=== PATIENT | female | born 2000 | race Caucasian/White ===

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

== ENCOUNTER 2021-02-23 12:00 | Emergency (ER) | payer OTHER, SELFPAY ==
--- NOTE | ~2021-02-23 | XR_ITS ---
EXAMINATION: XR hand RT min 3V INDICATION: Right hand pain and deformity TECHNIQUE: Three views of the right hand are obtained. COMPARISON: 12/04/2016 FINDINGS: There is no fracture, dislocation, or subluxation. The bones, soft tissues, and joint space s are normal. IMPRESSION: 1. No acute osseous abnormality. Reviewed, dictated and finalized at location A.
[2021-02-23 12:03] VITALS: BP 131/80; PULSE 73; RESP 16; TEMP 36.6; O2SAT 100
--- NOTE | 2021-02-23 12:40 | ED_ITS ---
HPI - Extremity Injury (Upper) General Chief Complaint: Extremity Injury, Upper Stated Complaint: right 5th finger injury Time Seen by Provider: 02/23/21 12:16 Source: patient Mode of arrival: ambulatory Limitations: no limitations History of Present Illness HPI narrative: 20-year-old female Here for right hand injury She got mad and in a paroxysm of misplaced aggravation punched a wall Pain in the fourth and fifth of her right hand There is no deformity, there is some bruising, the wall was undamaged Related Data Home Medications Medication Instructions Recorded Confirmed No Home Medications 02/23/21 02/23/21 Allergies Allergy/AdvReac Type Severity Reaction Status Date / Time No Known Allergies Allergy Verified 02/23/21 12:22 Review of Systems Musculoskeletal: Musculoskeletal: Reports no additional musculoskeletal complaints Integumentary/Breasts: Skin/Breast: Denies erythema and Denies rash Neurologic: Denies numbness and Denies weakness [facility] Social History Social History Smoking status: Former smoker Gender identity (if verbalized by the patient): Female Exam Const: General: healthy appearing and alert Nutritional Appearance: thin Orientation/consciousness: patient oriented x3 HENMT: Head: normal to inspection, no contusions and no hematomas Eyes: Conjunctivae: conjunctivae normal EOM: EOMs intact bilaterally Resp: Effort & Inspection: normal respiratory effort and not labored Neuro: General: patient oriented x3 and moves all extremities Extrem: Other: There is bruising near the right fourth MCP joint, range of motion is painful but full, there is no deformity there or in the fourth or fifth fingers, normal cap refill Course Vital Signs Vital signs: Vital Signs Temperature 36.6 C 02/23/21 12:03 Pulse Rate 73 02/23/21 12:03 Respiratory Rate 16 02/23/21 12:03 Blood Pressure 131/80 02/23/21 12:03 Pulse Oximetry 100 02/23/21 12:03 Temperature 36.3 C L 02/23/21 13:10 Pulse Rate 69 02/23/21 13:10 Respiratory Rate 18 02/23/21 13:10 Blood Pressure 122/73 02/23/21 13:10 Pulse Oximetry 100 02/23/21 13:10 MDM - Extremity Injury (Upper) Imaging Data Radiologist's impression: ITS Impressions Hand X-Ray 02/23/21 12:20 IMPRESSION: 1. No acute osseous abnormality. Discharge Plan Discharge Clinical Impression: Contusion of hand including fingers Patient Disposition: Home, Self-Care Condition: Stable Instructions: Contusion in Adults (ED) Additional Instructions: Tristan tape the pinky finger and ring finger for comfort and protection Recheck in 10-14 days if the hand is still bothering you Prescriptions: No Action No Home Medications RF: 0 Follow-up/Referrals: Tigre Liang MD [Physician] - (orthopedics as needed) Stand Alone Forms: Work/School Release IP
[2021-02-23 13:10] VITALS: BP 122/73; PULSE 69; RESP 18; TEMP 36.3; O2SAT 100
== END 2021-02-23 13:23 | disposition home or self-care (01) ==
PROVIDERS: Emergency Provider Emergency Medicine
DX: S60.051A Contusion of right little finger without damage to nail, initial encounter (principal); S60.041A Contusion of right ring finger without damage to nail, initial encounter; Z87.891 Personal history of nicotine dependence; W22.09XA Striking against other stationary object, initial encounter
CPT/HCPCS: 73130; 99283

== ENCOUNTER 2021-04-14 21:47 | Emergency (ER) | payer OTHER, SELFPAY ==
[2021-04-14 22:12] VITALS: BP 131/79; PULSE 100; RESP 18; TEMP 36.4; O2SAT 100
--- NOTE | 2021-04-15 | PC.NURSE ---
not present in when called for ED bed assignment.
--- NOTE | 2021-04-15 00:28 | PC.NURSE ---
no answer/not in wr when called for bed assignment.
== END 2021-04-15 00:31 | disposition left against medical advice (07) ==
DX: N93.9 Abnormal uterine and vaginal bleeding, unspecified (principal)
CPT/HCPCS: 99199

== ENCOUNTER 2021-06-02 15:13 | Emergency (ER) | payer OTHER, SELFPAY ==
[2021-06-02 15:22] VITALS: BP 149/73; PULSE 84; RESP 16; TEMP 36.6; O2SAT 100
--- NOTE | 2021-06-02 19:00 | PC.NURSE ---
Patient's name called in waiting room, no answer.
== END 2021-06-02 19:00 | disposition left against medical advice (07) ==
LOC: ANHED 19:27
DX: Z53.21 Procedure and treatment not carried out due to patient leaving prior to being seen by health care provider (principal)
CPT/HCPCS: 99199

== ENCOUNTER 2021-06-26 14:56 | Emergency (ER) | payer OTHER, SELFPAY ==
--- NOTE | 2021-06-26 15:42 | PC.NURSE ---
no answer from waiting room - when called to triage.
== END 2021-06-26 15:42 | disposition left against medical advice (07) ==
DX: Z53.21 Procedure and treatment not carried out due to patient leaving prior to being seen by health care provider (principal)
CPT/HCPCS: 99199

== ENCOUNTER 2021-06-26 15:40 | Emergency (ER) | payer OTHER, SELFPAY ==
--- NOTE | ~2021-06-26 | XR_ITS ---
EXAMINATION: XR lumbar spine 2-3V DATE: 06/26/2021 16:22 INDICATION: Low back pain after fall TECHNIQUE: Anteroposterior and lateral views of the lumbar spine, and cone-down lateral view of the l umbosacral junction were obtained. COMPARISON: None. FINDINGS: There is no fracture, dislocation, or subluxation. The vertebral body heights, alignment, a nd intervertebral disc spaces are normal. The paravertebral soft tissues are unremarkable. IMPRESSION: 1. No acute osseous abnormality. Reviewed, dictated and finalized at location A.
[2021-06-26 15:52] VITALS: BP 126/71; PULSE 94; RESP 16; TEMP 37.1; O2SAT 99
--- NOTE | 2021-06-26 16:30 | ED.GENADULT ---
HPI - General Adult General Chief complaint: Back Pain/Injury Stated complaint: lower back/right arm pain Source: patient Mode of arrival: ambulatory Limitations: no limitations History of Present Illness HPI narrative: Patient is a 20-year-old female who presents to the [facility] via POV for evaluation of a injury to back that occurred at approximately 12:30 PM today. She reports she excellently slipped and slid down wooden stairs while carrying her infant. She states she is having pain in mid back and coccyx area. She also reports abrasions noted to back and left arm. Nothing improves symptoms. Denies taking OTC meds for symptoms. Laying supine and movement increases pain. Related Data Allergies Allergy/AdvReac Type Severity Reaction Status Date / Time No Known Allergies Allergy Verified 06/26/21 15:42 Review of Systems Review of Systems: Pertinent negatives: Head trauma, neck trauma, fever, chills, sweats, change in appetite, poor p.o. intake, headache, dizziness, lymphadenopathy, vision changes, swelling, erythema, weakness, syncope, vertigo, LOC, seizure activity, memory loss, difficulty with coordination/gait/equilibrium, paresthesias, incontinence, abdominal pain, nausea, vomiting, diarrhea, constipation, shortness of breath, cough, chest pain, and heart palpitations/murmurs. PMFSH Social History Social History Smoking status: Former smoker Gender identity (if verbalized by the patient): Female Comments I have reviewed and agree with the patient's past medical, surgical, social, and family hx as documented by the RN. There is no relevant family history pertinent to the presenting complaint. Exam Narrative: GENERAL: Well-appearing, well-nourished, and in no acute distress. HEAD: Normocephalic, atraumatic. NECK: Supple. No lymphadenopathy or nuchal rigidity. No evidence of pain, decreased ROM, or deformity. CHEST: Lung sounds are clear to auscultation in bilateral lung bah. No respiratory distress. HEART: Regular rate and rhythm. No murmur heard. Normal peripheral pulses. ABDOMEN: Soft, nontender, nondistended, normal active bowel sounds in all quadrants. No guarding. No rebound tenderness. No pulsatile or palpable abdominal mass(es). No CVAT EXTREMITIES: Normal range of motion. No edema. Small abrasion noted to dorsal aspect of left arm. BACK: Full ROM. No evidence of deformity, spasm, mass, spinal tenderness, or swelling. Bilateral SLR tests negative. Ambulates hunched over with a slowed gait. Multiple small abrasions noted to lumbar area. Moderate pain is elicited to lumbar and coccyx area with palpation. Moderate pain is also to cut that elicited to lumbar and coccyx area with all ROM. SKIN: Warm, dry, no rash. No skin color changes. Excellent turgor. NEURO: No focal deficits. Alert and oriented x3. Course Vital Signs Vital signs: Vital Signs Temperature 98.8 F 06/26/21 15:52 Pulse Rate 94 06/26/21 15:52 Respiratory Rate 16 06/26/21 15:52 Blood Pressure 126/71 06/26/21 15:52 Pulse Oximetry 99 06/26/21 15:52 Temperature 98.8 F 06/26/21 15:52 Pulse Rate 94 06/26/21 15:52 Respiratory Rate 16 06/26/21 15:52 Blood Pressure 126/71 06/26/21 15:52 Pulse Oximetry 99 06/26/21 15:52 Reviewed Medical Decision Making Differential Diagnosis Differential Diagnosis: Spinal stenosis, radiculopathy/sciatica,cauda equina syndrome, sacroiliac pathology, fracture, strain, spasm, UTI, pyelonephritis, nephrolithiasis Medical Records Medical records reviewed: Yes I reviewed the external patient's medical records. Vital Signs Vital Signs: Vital Signs Temperature 98.8 F 06/26/21 15:52 Pulse Rate 94 06/26/21 15:52 Respiratory Rate 16 06/26/21 15:52 Blood Pressure 126/71 06/26/21 15:52 Pulse Oximetry 99 06/26/21 15:52 Temperature 98.8 F 06/26/21 15:52 Pulse Rate 94 06/26/21 15:52 Respira
== END 2021-06-26 16:44 | disposition home or self-care (01) ==
PROVIDERS: Emergency Provider Nurse Practitioner Family
DX: S30.810A Abrasion of lower back and pelvis, initial encounter (principal); W10.9XXA Fall (on) (from) unspecified stairs and steps, initial encounter; M54.50 Low back pain, unspecified; Z87.891 Personal history of nicotine dependence
CPT/HCPCS: 72100; 99213; G0463

== ENCOUNTER 2021-09-13 10:57 | Emergency (ER) | payer OTHER, SELFPAY ==
--- NOTE | ~2021-09-13 | US_ITS ---
EXAMINATION: US OB <=14 wk fetus w TV DATE: 09/13/2021 13:33 INDICATION: Pelvic pain during first trimester . TECHNIQUE: Real-time pelvic ultrasound utilizing both a transvaginal and transabdominal probe was pe rformed. The interpreting radiologist was not present for the study. COMPARISON: None. FINDINGS: The uterus measures 10.1 x 5.8 x 5.1 cm. 3-4 mm anechoic likely gestational sac within the endometri al complex which is mildly thickened measuring 17 mm. No evident internal yolk sac or pole like ly due to the small size of the gestational sac an early stage of . The mean sac diameter co rrelates with an estimated gestational age of 4 weeks and 6 days. The right ovary measures 2.8 x 2.5 x 2.6 cm. The left ovary measures 3.6 x 3.0 x 2.2 cm. Vascular alison w identified in both ovaries with color Doppler. There is a tiny amount of free fluid in the cul-de-s ac. IMPRESSION: 1. Single uterine likely gestational sac without evident yolk sac or pole likely due to early s tage of . 2. Gestational age by ultrasound based upon mean sac diameter of 4 weeks 6 with ultrasound estimated date of delivery ([facility]RIANNA) of 05/17/2022. Reviewed, dictated and finalized at location B. GER MANAGING IMPRESSION: 1. Single uterine likely gestational sac without evident yolk sac or pole likely due to early stage of . 2. Gestational age by ultrasound based upon mean sac diameter of 4 weeks 6 wit h ultrasound estimated date of delivery (BRIANNA) of 05/17/2022.
[2021-09-13 11:02] VITALS: BP 139/75; PULSE 114; RESP 18; TEMP 36.5; O2SAT 100
[2021-09-13 11:32] LABS: Basophils Percent Auto 0.5 % (0.2-1.2); Eosinophils Percent Auto 0.7 % (0-4.4); Hematocrit 39.7 % (37.0-47.0); Hemoglobin 13.5 g/dL (12.0-15.0); Immature Granulocyte Absolute 0.05 K/mm3 (0.00-0.031); Immature Granulocyte Percent A 0.8 % (0-0.5); Lymphocytes Absolute Auto 0.32 K/mm3 (0.9-3.2); Lymphocytes Percent Auto 5.3 % (18.3-44.2); Mean Corpuscular Hemoglobin 30.3 pg (26-34); Mean Corpuscular Volume 89.2 fl (80-100); Mean Platelet Volume 9.7 fl (7.4-10.4); Monocytes Absolute Auto 0.6 K/mm3 (0.1-0.6); Monocytes Percent Auto 10.2 % (2.6-8.5); Neutrophils Percent Auto 82.5 % (45.5-73.1); Platelet Count Result 146 k/mm3 (150-375); Red Blood Count 4.45 M/mm3 (4.2-5.4); Red Cell Distribution Width 13.2 % (11.5-14.5); White Blood Count 6.1 K/mm3 (4.5-10.0)
[2021-09-13 11:41] LABS: Add Urine Microscopic? YES; Appearance Urine Clear (Clear); Bacteria Urine Trace /hpf; Bilirubin Urine Negative (Negative); Blood Urine Negative (Negative); Color Urine Yellow (Yellow); Glucose Urine UA Negative (Negative); Ketones Urine Trace mg/dL (Negative); Leukocyte Esterase Ur 2+ LEU/UL (Negative); Mucus Urine Rare /lpf; Nitrate Urine Negative (Negative); Protein Urine Negative (Negative); RBC Urine 0-2 /hpf (0-2); Specific Grav Ur 1.019 (1.001-1.035); Squamous Epithelial Cell Urine Few /hpf (Few); Urobilinogen Urine Negative mg/dL (<2.0); WBC Urine 0-3 /hpf
--- NOTE | 2021-09-13 11:52 | PC.NURSE ---
This nurse called laboratory for an add-on for a cmp and lipase.
[2021-09-13] MEDS: SODIUM CHLORIDE 0.9% IV 1,000 ML 999 ML IV CONT (12:14)
--- NOTE | 2021-09-13 12:19 | ED.PREGNANCY ---
HPI - General Chief complaint: Abdominal Pain Stated complaint: 6wks preg, back/abd pain Time Seen by Provider: 09/13/21 11:37 Source: patient Mode of arrival: ambulatory Limitations: no limitations History of Present Illness HPI Narrative: This is a 20 year old , about 6 weeks , that presents to the ER for back pain and pelvic cramping. Ongoing today. No known injury or trauma. The pain is in the left flank and radiating into the abdomen. She has not seen her OB yet or had an US. Denies fever, vomiting, dysuria, vaginal bleeding or hematuria. Related Data Home Medications Medication Instructions Recorded Confirmed No Home Medications 09/13/21 09/13/21 Allergies Allergy/AdvReac Type Severity Reaction Status Date / Time No Known Allergies Allergy Verified 09/13/21 11:06 Review of Systems Review of Systems: CONSTITUTIONAL: Denies fever GASTROINTESTINAL: Reports abdominal pain. Denies nausea, vomiting, or diarrhea. GENITOURINARY: Denies dysuria or hematuria. MUSCULOSKELETAL: Reports back pain, joint pain, and myalgia. All systems reviewed & are unremarkable except as noted in HPI and below PMFSH Past Medical History Medical History (Updated 09/13/21 @ 15:05 by Suyapa Griffin PA-C) No active medical problems Social History Social History Smoking status: Former smoker Gender identity (if verbalized by the patient): Female Exam Narrative: GENERAL: Well-appearing, well-nourished, and in no acute distress. HEAD: Normocephalic, atraumatic. EYES: EOMI. CHEST: Clear to auscultation. No respiratory distress. No wheezes rales or rhonchi HEART: Regular rate and rhythm. No murmur heard. Normal peripheral pulses. ABDOMEN: Soft, nontender, nondistended, normal active bowel sounds. BACK: Tender to palpation of the left lumbar paraspinal musculature EXTREMITIES: Normal range of motion. No edema. SKIN: Warm, dry, no rash. NEURO: No focal deficits. Alert and oriented x3. PSYCH: Normal mood and affect Course Consultations Consultation #1: Spoke with Dr. Kenyon about patient and work-up. Would like her to follow-up for repeat ultrasound in 2 weeks. Date: 09/13/21 Time: 15:03 Vital Signs Vital signs: Vital Signs Temperature 97.7 F 09/13/21 11:02 Pulse Rate 114 H 09/13/21 11:02 Respiratory Rate 18 09/13/21 11:02 Blood Pressure 139/75 09/13/21 11:02 Pulse Oximetry 100 09/13/21 11:02 Temperature 97.7 F 09/13/21 11:02 Pulse Rate 97 09/13/21 13:39 Respiratory Rate 18 09/13/21 13:39 Blood Pressure 119/64 09/13/21 13:39 Pulse Oximetry 100 09/13/21 13:39 MDM - OB/Uterine Contractions MDM Narrative Medical decision making narrative: Patient presents to the emergency department for left flank pain and pelvic cramping. Reports she is currently about 6 weeks by LMP. Patient mildly tachycardic upon arrival, this normalized with IV fluid administration. Vitals are stable. CBC and metabolic panel without concerning findings. Lipase is normal. She denies any vaginal bleeding. UA is without evidence of infection. Obstetrics ultrasound shows a single intrauterine gestational sac without an evident yolk sac or pole likely due to early stage of . Patient reports relief with IV fluids and Tylenol. Spoke with Dr. Kenyon about patient and work-up. Would like her to follow-up for repeat ultrasound in 2 weeks. Patient is stable and felt appropriate for further outpatient evaluation. She was given warnings to return to the ER Lab Data Attestation: I reviewed the patient's lab results. Result diagrams: 09/13/21 11:15 09/13/21 11:59 Labs: Lab Results 09/13/21 09/13/21 09/13/21 Range/Units 11:15 11:15 11:15 WBC 6.1 (4.5-10.0) K/mm3 RBC 4.45 (4.2-5.4) M/mm3 Hgb 13.5 (12.0-15.0) g/dL Hct 39.7 (37.0-47.0) % MCV 89.2 (80-100) fl MCH 30.3
[2021-09-13 12:25] LABS: Alanine Aminotransferase 14 U/L (4-35); Alkaline Phosphatase 55 U/L (45-116); Anion Gap 9 mmol/L (8-16); Aspartate Amino Transferase 19 U/L (14-36); Bilirubin,Total 0.3 mg/dL (0.2-1.3); Blood Urea Nitrogen 11 mg/dL (8-21); Calcium 9.8 mg/dL (8.9-10.7); Carbon Dioxide 22 mmol/L (22-30); Chloride 107 mmol/L (98-107); Estimated CRCL calculation 103 ml/min; Estimated Glomerular Filt Rate > 60; Glucose 108 mg/dL (65-110); Lipase 34 U/L (23-300); Potassium 3.7 mmol/L (3.4-5.0); Sodium 138 mmol/L (134-143)
[2021-09-13 13:39] VITALS: BP 119/64; PULSE 97; RESP 18; O2SAT 100
== END 2021-09-13 15:22 | disposition home or self-care (01) ==
PROVIDERS: Physician Assistant; Emergency Provider Emergency Medicine
DX: O26.891 Other specified pregnancy related conditions, first trimester (principal); R10.2 Pelvic and perineal pain; M54.9 Dorsalgia, unspecified; Z3A.01 Less than 8 weeks gestation of pregnancy
CPT/HCPCS: 36415; 76801; 76817; 80053; 81001; 81025; 83690; 84702; 85025; 86850; 86900; 86901; 96361; 96365; 99284; J0131; J7030

== ENCOUNTER 2021-09-19 23:26 | Emergency (ER) | payer OTHER, SELFPAY ==
--- NOTE | ~2021-09-19 | US_ITS ---
EXAMINATION: US OB <=14 wk fetus w TV DATE: 09/20/2021 01:34 INDICATION: Vaginal bleeding TECHNIQUE: Real-time pelvic ultrasound utilizing both a transvaginal and transabdominal probe was pe rformed. The interpreting radiologist was not present for the study. COMPARISON: None. FINDINGS: The uterus measures 9.1 x 6.1 x 5.7 cm. There is an intrauterine gestational sac. A 2-3 mm yolk sac but no pole is identified. The mean sac diameter measures measures 8 mm, which correlates which is below limits for accurate estimation of gestational age. 2.8 x 2.6 x 1.9 cm isoechoic region with in the endometrial complex along the right fundal side of the gestational sac which is not identified on a recent ultrasound from one week prior which would favor subchorionic hematoma over uterine fibr oid or endometrial polyp. The right ovary measures 3.7 x 2.9 x 2.1 cm. The left ovary is not visualized. There is no free fluid in the pelvis. IMPRESSION: 1. Single intrauterine gestational sac of 8 mm mean sac diameter with a yolk sac but no discernible f etal pole yet apparent likely due to early stage of . 2. 2.8 x 2.6 x 1.9 cm isoechoic region along side a gestational sac most likely a subchorionic hemat chayito. Reviewed, dictated and finalized at location A. GRAPH EDITOR IMPRESSION: 1. Single intrauterine gestational sac of 8 mm mean sac diameter with a yolk sa c but no discernible pole yet apparent likely due to early stage of pregn jn. 2. 2.8 x 2.6 x 1.9 cm isoechoic region along side a gestational sac most likel y a subchorionic hematoma.
[2021-09-19 23:50] VITALS: BP 135/85; PULSE 74; RESP 18; O2SAT 100
--- NOTE | 2021-09-19 23:52 | ED.PREGNANCY ---
HPI - General Chief complaint: Vaginal Bleeding <Jonna Cartagena MD - Last Filed: 09/20/21 02:05> Stated complaint: 7 weeks /bleeding <Jonna Cartagena MD - Last Filed: 09/20/21 02:05> Time Seen by Provider: 09/19/21 23:47 <Jonna Cartagena MD - Last Filed: 09/20/21 02:05> Source: patient, RN notes reviewed and old records reviewed <Jonna Cartagena MD - Last Filed: 09/20/21 02:05> Mode of arrival: ambulatory <Jonna Cartagena MD - Last Filed: 09/20/21 02:05> Limitations: no limitations <Jonna Cartagena MD - Last Filed: 09/20/21 02:05> History of Present Illness HPI Narrative: This is a 20 year old female 5 wk GA by US who presents for evaluation of vaginal bleeding. She states just prior to arrival she developed vaginal bleeding. She states she is having alot of bleeding but she denies passing clots or tissue. She also denies abdominal pain or cramping. She is not lightheaded or dizzy. She has appointment at [facility] on October 03. She was evaluated in ER 1 week ago and she was found to have IUP. <Jonna Cartagena MD - Last Filed: 09/20/21 02:05> Related Data Home medications: Home Medications Medication Instructions Recorded Confirmed No Home Medications 09/13/21 09/19/21 <Jonna Cartagena MD - Last Filed: 09/20/21 02:05> Allergies/Adverse reactions: Allergies Allergy/AdvReac Type Severity Reaction Status Date / Time No Known Allergies Allergy Verified 09/19/21 23:58 <Jonna Cartagena MD - Last Filed: 09/20/21 02:05> Review of Systems Review of Systems: All systems reviewed & are unremarkable except as noted in HPI and below <Jonna Cartagena MD - Last Filed: 09/20/21 02:05> PMFSH Past Medical History Medical History: Medical History (Updated 09/20/21 @ 02:05 by Jonna Cartagena MD) No active medical problems <Jonna Cartagena MD - Last Filed: 09/20/21 02:05> Social History Social History: Social History Smoking status: Former smoker Gender identity (if verbalized by the patient): Female <Jonna Cartagena MD - Last Filed: 09/20/21 02:05> Exam Const: General: alert <Jonna Cartagena MD - Last Filed: 09/20/21 02:05> Nutritional Appearance: thin <Jonna Cartagena MD - Last Filed: 09/20/21 02:05> Orientation/consciousness: patient oriented x3 <Jonna Cartagena MD - Last Filed: 09/20/21 02:05> Eyes: EOM: EOMs intact bilaterally <Jonna Cartagena MD - Last Filed: 09/20/21 02:05> Resp: Effort & Inspection: normal respiratory effort and no retractions <Jonna Cartagena MD - Last Filed: 09/20/21 02:05> Auscultation: clear to auscultation bilaterally <Jonna Cartagena MD - Last Filed: 09/20/21 02:05> Cardio: Rate: regular rate <Jonna Cartagena MD - Last Filed: 09/20/21 02:05> Rhythm: regular rhythm <Jonna Cartagena MD - Last Filed: 09/20/21 02:05> Heart sounds: no murmurs <Jonna Cartagena MD - Last Filed: 09/20/21 02:05> GI: GI Palp: Yes Soft to palpation, No Tenderness to palpation present (GI) and No Guarding due to palpation present (GI) <Jonna Cartagena MD - Last Filed: 09/20/21 02:05> Auscultation: normal bowel sounds <Jonna Cartagena MD - Last Filed: 09/20/21 02:05> : Speculum Exam - Cervix: Cervical os closed <Jonna Cartagena MD - Last Filed: 09/20/21 02:05> Other: small amount of dark blood in vault, no clots, <Jonna Cartagena MD - Last Filed: 09/20/21 02:05> Back/Spine/Pelvis: Back: no CVA tenderness <Jonna Cartagena MD - Last Filed: 09/20/21 02:05> Skin: General skin exam: normal color <Jonna Cartagena MD - Last Filed: 09/20/21 02:05> Rashes: no rashes <Jonna Cartagena MD - Last Filed: 09/20/21 02:05> Neuro: General: patient oriented x3, moves all extremities and CN's II-XI intact bilaterally <Jonna Cartagena MD - Last Filed: 09/20/21 02:0
[2021-09-20 00:15] LABS: Basophils Percent Auto 0.4 % (0.2-1.2); Eosinophils Absolute Auto 0.2 K/mm3 (0-0.3); Eosinophils Percent Auto 2.6 % (0-4.4); Hematocrit 38.3 % (37.0-47.0); Hemoglobin 13.2 g/dL (12.0-15.0); Immature Granulocyte Absolute 0.02 K/mm3 (0.00-0.031); Immature Granulocyte Percent A 0.2 % (0-0.5); Lymphocytes Absolute Auto 3.34 K/mm3 (0.9-3.2); Lymphocytes Percent Auto 40.6 % (18.3-44.2); Mean Corpuscular HGB Conc 34.5 g/dl (32-36); Mean Corpuscular Hemoglobin 29.6 pg (26-34); Mean Corpuscular Volume 85.9 fl (80-100); Mean Platelet Volume 9.7 fl (7.4-10.4); Monocytes Absolute Auto 0.6 K/mm3 (0.1-0.6); Monocytes Percent Auto 7.4 % (2.6-8.5); Neutrophils Percent Auto 48.8 % (45.5-73.1); Platelet Count Result 195 k/mm3 (150-375); Red Blood Count 4.46 M/mm3 (4.2-5.4); Red Cell Distribution Width 13.1 % (11.5-14.5); White Blood Count 8.2 K/mm3 (4.5-10.0)
--- NOTE | 2021-09-20 01:11 | PC.NURSE ---
Pt to US at this time.
[2021-09-20 02:27] VITALS: BP 118/74; BP 122/84; PULSE 56; PULSE 74
[2021-09-20 02:31] VITALS: BP 131/91; PULSE 67
[2021-09-20 03:17] VITALS: BP 114/65; PULSE 66; RESP 16; O2SAT 100
== END 2021-09-20 03:20 | disposition home or self-care (01) ==
PROVIDERS: General Practice; Emergency Provider Emergency Medicine; PCP Family Medicine
DX: O20.0 Threatened abortion (principal); Z3A.01 Less than 8 weeks gestation of pregnancy; Z87.891 Personal history of nicotine dependence
CPT/HCPCS: 36415; 76801; 76817; 84702; 85025; 86850; 86900; 86901; 99284

== ENCOUNTER 2021-10-30 12:13 | Emergency (ER) | payer OTHER, SELFPAY ==
[2021-10-30 12:18] VITALS: BP 139/82; PULSE 82; RESP 18; TEMP 36.4; O2SAT 100
[2021-10-30 12:32] LABS: Basophils Absolute Auto 0.1 K/mm3 (0.0-0.1); Basophils Percent Auto 0.3 % (0.2-1.2); Eosinophils Absolute Auto 0.2 K/mm3 (0-0.3); Eosinophils Percent Auto 1.1 % (0-4.4); Hematocrit 42.3 % (37.0-47.0); Hemoglobin 14.5 g/dL (12.0-15.0); Immature Granulocyte Absolute 0.12 K/mm3 (0.00-0.031); Immature Granulocyte Percent A 0.7 % (0-0.5); Lymphocytes Percent Auto 8.1 % (18.3-44.2); Mean Corpuscular HGB Conc 34.3 g/dl (32-36); Mean Corpuscular Hemoglobin 30.5 pg (26-34); Mean Corpuscular Volume 88.9 fl (80-100); Mean Platelet Volume 9.2 fl (7.4-10.4); Monocytes Percent Auto 5.9 % (2.6-8.5); Neutrophils Absolute Auto 13.5 K/mm3 (1.3-6.7); Neutrophils Percent Auto 83.9 % (45.5-73.1); Platelet Count Result 213 k/mm3 (150-375); Red Blood Count 4.76 M/mm3 (4.2-5.4); Red Cell Distribution Width 13.7 % (11.5-14.5); White Blood Count 16.1 K/mm3 (4.5-10.0)
--- NOTE | 2021-10-30 12:32 | ED.FEMALEGU ---
HPI - Female Genitourinary General Chief complaint: Nausea/Vomiting/Diarrhea Stated complaint: N/V 10 weeks Time Seen by Provider: 10/30/21 12:16 Source: patient Mode of arrival: ambulatory Limitations: no limitations History of Present Illness HPI Narrative: Patient is a G2, P1 at 10 weeks age of gestation complaining of nausea and vomiting that started today but states that it is been on and off throughout her . Patient states that today the frequency of her nausea vomiting is increased, states that she is vomited proximately 6 times, nonbilious nonbloody. Patient denies any abdominal pain, vaginal bleeding or vaginal discharge. Patient states that she has had care and a first trimester ultrasound. Related Data Allergies Allergy/AdvReac Type Severity Reaction Status Date / Time No Known Allergies Allergy Verified 09/19/21 23:58 Review of Systems Review of Systems: All systems reviewed & are unremarkable except as noted in HPI and below Constitutional: Constitutional: Denies body ache(s), Denies chills, Denies excessive sweating, Denies fatigue, Denies fever(s), Denies headache(s), Denies lethargy, Denies malaise, Denies weakness and Denies weight loss Eyes: Eyes: Denies blurry vision, Denies change in vision and Denies loss of vision ENT: Denies dizziness, Denies ear discharge, Denies headache(s), Denies lip swelling, Denies epistaxis, Denies nasal congestion, Denies neck pain, Denies throat swelling and Denies tongue swelling Cardiovascular: Cardiovascular: Denies chest pain, Denies chest pain at rest, Denies chest pain with activity, Denies diaphoresis, Denies rapid heart rate, Denies edema, Denies irregular heart rhythm, Denies lightheadedness, Denies palpitations, Denies dyspnea and Denies dyspnea on exertion Respiratory: Respiratory: Denies chest congestion, Denies cough, Denies hemoptysis, Denies dyspnea and Denies dyspnea on exertion Gastrointestinal: Gastrointestinal: Denies abdominal pain, Denies melena, Denies hematochezia, Denies diarrhea and Denies hematemesis Musculoskeletal: Musculoskeletal: Denies abnormal gait, Denies deformity, Denies joint swelling, Denies limited range of motion, Denies neck pain and Denies numbness Neurologic: Denies Abnormal speech present, Denies abnormal gait, Denies confusion, Denies dizziness, Denies headache(s), Denies focal weakness, Denies loss of vision, Denies numbness, Denies Other visual disturbances, Denies Sensory deficit (Neuro) and Denies weakness Psychiatric: Psychiatric: Denies confusion, Denies depression, Denies auditory hallucinations, Denies homicidal ideation and Denies suicidal ideation Endocrine: Endocrine: Denies cold intolerance, Denies excessive sweating, Denies fatigue, Denies heat intolerance and Denies palpitations Hematologic/Lymphatic: Hematologic/Lymphatic: Denies easy bleeding and Denies easy bruising Allergic/Immunologic: Allergic/Immunologic: Denies lip swelling, Denies throat swelling and Denies tongue swelling PMFSH Past Medical History Medical History No active medical problems Social History Social History Smoking status: Former smoker Gender identity (if verbalized by the patient): Female Exam Const: General: cooperative, healthy appearing, comfortable, no acute distress, well developed, alert and awake; No confusion Orientation/consciousness: oriented to person, oriented to place, oriented to time, patient oriented x3 and No confusion Limitations: no limitations HENMT: Head: normal to inspection, normocephalic and atraumatic Ears: hearing grossly normal bilaterally, TM normal on the right and TM normal on the left General nose exam: Normal external nose present, Normal nares present and No nasal discharge present Face and sinus: normal facial exam Mouth: Yes Normal oral and palatal mucosa present, Yes lip norm
[2021-10-30] MEDS: SODIUM CHLORIDE 0.9% IV 1,000 ML 999 ML IV CONT (12:36)
[2021-10-30] MEDS: PROMETHAZINE HCL 25 MG/ML AMPUL 12.5 MG IV PUSH (12:37)
[2021-10-30 12:58] LABS: Alanine Aminotransferase 11 U/L (4-35); Albumin Level 5.2 g/dL (3.5-5.1); Alkaline Phosphatase 57 U/L (38-126); Anion Gap 12 mmol/L (8-16); Aspartate Amino Transferase 19 U/L (14-36); Bilirubin,Total 0.7 mg/dL (0.2-1.3); Blood Urea Nitrogen 9 mg/dL (7-17); Calcium 9.7 mg/dL (8.4-10.2); Carbon Dioxide 22 mmol/L (22-30); Chloride 103 mmol/L (98-107); Estimated CRCL calculation 156 ml/min; Estimated Glomerular Filt Rate > 60; Glucose 92 mg/dL (65-110); Lipase 33 U/L (23-300); Potassium 4.3 mmol/L (3.4-5.0); Sodium 137 mmol/L (137-145)
[2021-10-30 13:15] VITALS: BP 112/63; BP 122/64; BP 130/69; PULSE 68; PULSE 70; PULSE 86
[2021-10-30 13:46] LABS: Add Urine Microscopic? NO; Appearance Urine Clear (Clear); Bilirubin Urine Negative (Negative); Blood Urine Negative (Negative); Color Urine Yellow (Yellow); Glucose Urine UA Negative (Negative); Ketones Urine Negative (Negative); Leukocyte Esterase Ur Negative LEU/UL (Negative); Nitrate Urine Negative (Negative); Protein Urine Negative (Negative); Specific Grav Ur 1.023 (1.001-1.035); Urobilinogen Urine Negative mg/dL (<2.0)
== END 2021-10-30 14:24 | disposition home or self-care (01) ==
PROVIDERS: Emergency Provider Emergency Medicine
DX: O21.9 Vomiting of pregnancy, unspecified (principal); Z87.891 Personal history of nicotine dependence; Z3A.10 10 weeks gestation of pregnancy
CPT/HCPCS: 36415; 80053; 81003; 81025; 83690; 85025; 96361; 96374; 99284; J2550; J7030

== ENCOUNTER 2022-04-09 18:17 | Inpatient (IN) | payer OTHER, SELFPAY ==
[2022-04-09] VITALS (34 sets, daily range): BP systolic 111–145; BP diastolic 71–115; PULSE 82–136; TEMP 36.4; O2SAT 99–100; BMI 22.6
--- NOTE | ~2022-04-09 | US_ITS ---
EXAMINATION: US OB follow up w [facility] DATE: 04/10/2022 07:45 INDICATION: Variable decelerations. Third trimester. TECHNIQUE: Real-time pelvic ultrasound was performed. COMPARISON: Ultrasound 09/20/2021, 09/13/2021 FINDINGS: There is a single living fetus in vertex presentation. The placenta is on the left. heart rate is 141 beats per minute (bpm). The amniotic fluid index is 11.7 cm, which is normal. The following biometric data were obtained: Biparietal diameter (BPD): 8.8 cm; head circumference (HC): 32.1 cm; abdominal circumference (AC): 31 .6 cm; femur length (FL): 6.5 cm. These measurements are concordant. Estimated weight is 2595 g +/- 389 g, which correlates with the 80th percentile when 05/23/22 is used as estimated date of delivery. As single measurements, these parameters are each equal to the following estimated gestational ages: BPD: 35 weeks 5 days. HC: 36 weeks 1 days. AC: 35 weeks 4 days. FL: 33 weeks 5 days. estimated gestational age based solely on measurements from this exam is 35 weeks 2 days +/- 2 weeks 3 days. Biophysical profile performed by the technologist: breathing (30 sec sustained breathing in 30 minutes): 2 out of 2 movement (3 gross body movements in 30 minutes): 2 out of 2 tone (one episode of fjwovfy-rbnuoizwm-guohkdu limb movement): 2 out of 2 Amniotic fluid pocket (2 cm): 2 out of 2 Total score: 8 out of 8 IMPRESSION: 1. Single living fetus in vertex presentation. 2. Estimated weight is 2595 g +/- 389 g, which correlates with the 80th percentile when 2 is used as estimated date of delivery. 3. Biophysical profile 8 out of 8. Reviewed, dictated and finalized at location A. IMPRESSION: 1. Single living fetus in vertex presentation. 2. Estimated weight is 2595 g +/- 389 g, which correlates with the 80th percentile when 05/23/22 is used as estimated date of delivery. 3. Biophysical profile 8 out of 8.
[2022-04-09] MEDS: TERBUTALINE SULFATE 1 MG/ML VIAL 0.25 MG SUB-Q ×2 (18:58→19:34)
[2022-04-09 19:02] LABS: Appearance Urine Slightly Cloudy (Clear); Bilirubin Urine 1+ (Negative); Blood Urine Negative (Negative); Color Urine Yellow (Yellow); Glucose Urine UA Negative (Negative); Ketones Urine Trace mg/dL (Negative); Leukocyte Esterase Ur Negative LEU/UL (Negative); Nitrate Urine Negative (Negative); Protein Urine Trace mg/dL (Negative); Specific Grav Ur 1.015 (1.001-1.035)
[2022-04-09 19:07] LABS: Amorphous Sediment Urine Few; Bacteria Urine Trace /hpf; Mucus Urine Rare /lpf; RBC Urine 0-2 /hpf (0-2); Squamous Epithelial Cell Urine Few /hpf (Few); WBC Urine 0-3 /hpf
[2022-04-09 19:09] LABS: Add Urine Microscopic? YES
--- NOTE | 2022-04-09 19:22 | LDADM ---
This patient, Afshan Capone, was admitted to [facility] on 04/09/22 at 18:17. Plans for labor, pain management and were discussed with patient. Patient/family oriented to hospital policies and general routines including ID bracelet, bed and alarms, visiting hours, pain management, procedures, bathroom and other care routines, personal items, smoking policy, room service/diet and guest tray routines, infant security routines, and visiting hours. Patient/Family are encouraged to report perceived risks to care and to ask questions if they do not understand what they are told or what they should do. See OBIX for further documentation.
[2022-04-09] MEDS: BETAMETHASONE SOD PHOS/ACETATE 30 MG/5 ML VIAL 12 MG IM (19:32)
[2022-04-09] MEDS: NIFEdipine 30 MG TAB.ER.24 PO (21:23)
[2022-04-10] VITALS (84 sets, daily range): BP systolic 109–150; BP diastolic 54–91; PULSE 58–115; RESP 12–18; TEMP 36–36.4; O2SAT 97–100
[2022-04-10] MEDS: TERBUTALINE SULFATE 1 MG/ML VIAL 0.25 MG SUB-Q (00:18)
[2022-04-10] MEDS: LACTATED RINGERS 1,000 ML 75 ML IV CONT ×2 (04:20→17:59)
[2022-04-10] MEDS: MAGNESIUM SULF 4 GM/WATER100ML 4 GM/100 ML BAG IVPB (04:20)
[2022-04-10 04:44] LABS: Basophils Percent Auto 0.2 % (0.2-1.2); Eosinophils Percent Auto 0.1 % (0-4.4); Hematocrit 32.6 % (37.0-47.0); Hemoglobin 10.7 g/dL (12.0-15.0); Immature Granulocyte Absolute 0.24 K/mm3 (0.00-0.031); Immature Granulocyte Percent A 1.3 % (0-0.5); Lymphocytes Absolute Auto 1.28 K/mm3 (0.9-3.2); Lymphocytes Percent Auto 7.1 % (18.3-44.2); Mean Corpuscular HGB Conc 32.8 g/dl (32-36); Mean Corpuscular Hemoglobin 27.6 pg (26-34); Mean Platelet Volume 10.8 fl (7.4-10.4); Monocytes Absolute Auto 0.4 K/mm3 (0.1-0.6); Neutrophils Absolute Auto 16.2 K/mm3 (1.3-6.7); Neutrophils Percent Auto 89.3 % (45.5-73.1); Platelet Count Result 225 k/mm3 (150-375); Red Blood Count 3.88 M/mm3 (4.2-5.4); Red Cell Distribution Width 13.6 % (11.5-14.5); White Blood Count 18.1 K/mm3 (4.5-10.0)
[2022-04-10 04:58] LABS: Alanine Aminotransferase 25 U/L (6-35); Albumin Level 3.7 g/dL (3.5-5.1); Alkaline Phosphatase 230 U/L (38-126); Anion Gap 11 mmol/L (8-16); Aspartate Amino Transferase 36 U/L (14-36); Bilirubin,Total 0.7 mg/dL (0.2-1.3); Blood Urea Nitrogen 5 mg/dL (7-17); Calcium 8.9 mg/dL (8.4-10.2); Carbon Dioxide 19 mmol/L (22-30); Chloride 104 mmol/L (98-107); Estimated CRCL calculation 140 ml/min; Estimated Glomerular Filt Rate > 60; Glucose 114 mg/dL (65-110); Potassium 3.5 mmol/L (3.4-5.0); Sodium 134 mmol/L (137-145)
[2022-04-10] MEDS: MAGNESIUM SULF 20GM/WATER500ML 500 ML 50 MG IV CONT ×2 (05:10→14:50)
--- NOTE | 2022-04-10 07:41 | PM.IMHP ---
H&P: HPI History of Present Illness Date/Time: 04/10/22 07:41 Chief Complaint: Contractions Narrative: this patient is a 21-year-old 3 para 1011 at 33 weeks gestation with history of delivery at 34 weeks. She is called complaining of contraction and I told her to come to delivered delivery. She was evaluated and found to be kayla. There was small amount of cervical change. Tocolytics were attempted such as terbutaline and nifedipine. She continued to contract and made cervical change and magnesium sulfate was started. This arrested her labor. She was given steroids. She denies any loss of fluid or vaginal bleeding. She reports good movement. She denies any nausea, vomiting, fever, chills. She denies any chest pain shortness breath Review of Systems Review of Systems: All systems reviewed & are unremarkable except as noted in HPI and below Constitutional: Constitutional: Denies chills, Denies fatigue, Denies fever(s) and Denies weakness Eyes: Eyes: Denies blurry vision, Denies change in vision, Denies loss of peripheral vision, Denies loss of vision, Denies other visual disturbances and Denies eye pain ENT: Denies vertigo, Denies dizziness, Denies hearing loss, Denies mouth pain, Denies nasal obstruction, Denies neck mass and Denies neck pain Cardiovascular: Cardiovascular: Denies chest pain, Denies diaphoresis, Denies syncope, Denies leg edema and Denies dyspnea Respiratory: Respiratory: Denies chest congestion, Denies cough, Denies hemoptysis, Denies dyspnea and Denies wheezing Gastrointestinal: Gastrointestinal: Denies abdominal pain, Denies constipation, Denies diarrhea, Denies nausea and Denies vomiting Genitourinary: Genitourinary: Denies hematuria, Denies change in libido, Denies nocturia, Denies genital lesions, Denies flank pain and Denies urinary urgency Musculoskeletal: Musculoskeletal: Denies abnormal gait, Denies back pain, Denies myalgias, Denies arthralgias, Denies joint swelling, Denies muscle weakness and Denies neck pain Integumentary/Breasts: Skin/Breast: Denies swelling, Denies breast pain, Denies breast mass, Denies dry skin, Denies nipple discharge, Denies unusual bruising and Denies jaundice Neurologic: Denies Neuro-related abnormal movements, Denies Abnormal speech present, Denies abnormal gait, Denies behavioral changes, Denies confusion, Denies vertigo, Denies dizziness, Denies syncope, Denies loss of vision, Denies memory loss, Denies convulsions and Denies weakness Psychiatric: Psychiatric: Denies abnormal sleep pattern, Denies behavioral changes, Denies change in libido, Denies confusion, Denies depression, Denies anhedonia and Denies memory loss Endocrine: Endocrine: Reports no additional endocrine complaints, Denies change in libido and Denies fatigue Hematologic/Lymphatic: Hematologic/Lymphatic: Reports no additional hematologic/lymphatic complaints Allergic/Immunologic: Allergic/Immunologic: Reports no additional allergic/immunologic complaints and Denies wheezing PMFSH Past Medical History Medical History No active medical problems Social History Social History Smoking status: Former smoker Gender identity (if verbalized by the patient): Female Meds Home Medications and Allergies Home Medications Medication Instructions Recorded Confirmed Type promethazine 25 mg tablet 25 mg PO TID PRN nausea and 10/30/21 Rx vomiting #10 tabs Allergies Allergy/AdvReac Type Severity Reaction Status Date / Time No Known Allergies Allergy Verified 04/09/22 19:31 Vital Signs Vital Signs - 24 hr 04/09/22 18:43 04/09/22 18:58 04/09/22 19:01 Temperature Pulse Rate 93 106 H Respiratory Rate Blood Pressure 126/71 111/82 Pulse Oximetry 100 Oxygen Delivery 04/09/22 19:03 04/09/22 19:08 04/09/22 19:13 Temperature Pu
[2022-04-10] MEDS: ONDANSETRON INJ 4 MG/2 ML VIAL IV PUSH (09:41)
[2022-04-10] MEDS: BETAMETHASONE SOD PHOS/ACETATE 30 MG/5 ML VIAL 12 MG IM (21:26)
[2022-04-11] VITALS (117 sets, daily range): BP systolic 111–138; BP diastolic 43–73; PULSE 50–107; RESP 16; TEMP 35.9–36.6; O2SAT 98–100
[2022-04-11] MEDS: MAGNESIUM SULF 20GM/WATER500ML 500 ML 50 MG IV CONT (01:18)
[2022-04-11 04:43] LABS: Magnesium 5.2 mg/dL (1.6-2.3)
[2022-04-11] MEDS: LACTATED RINGERS 1,000 ML 75 ML IV CONT (07:15)
--- NOTE | 2022-04-11 07:22 | PC.NURSE ---
Kandi Chaparro CNM here to see pt. Plan of care discussed. To turn off Magnesium Sulfate 24 hrs after 2nd dose.
--- NOTE | 2022-04-11 07:34 | PM.OBPNVD ---
OB - PN: Subj Subjective Date/time seen: 04/11/22 07:34 pt on magnesium sulfate for labor, FHR category 1, contractions rare, pt feeling tired OB - PN: Obj Data Labs CBC & Chem 7: 04/10/22 04:31 04/10/22 04:31 Labs: Laboratory Results - last 24 hr 04/11/22 04:24 Magnesium 5.2 H Imaging Radiologist's impression: Impressions Obstetrical Follow-Up 04/10/22 07:52 IMPRESSION: 1. Single living fetus in vertex presentation. 2. Estimated weight is 2595 g +/- 389 g, which correlates with the 80th percentile when 05/23/22 is used as estimated date of delivery. 3. Biophysical profile 8 out of 8. OB - PN A/P Assessment and Plan (1) labor: Code(s): O60.00 - labor without delivery, unspecified trimester Status: Acute Plan 1. 21 y.o at 34 weeks 2. labor steroids given plan magnesium sulfate until 24 hours post last dose of betamethasone continue to monitor FHR and contractions consulted with dr. willingham Time Spent With Patient Time: Total time spent is greater than 50% in coordination of care (as documented) at patient's floor/unit and/or counseling patient: Review of Systems Review of Systems: All systems reviewed & are unremarkable except as noted in HPI and below Exam Const: General: cooperative, healthy appearing and comfortable Skin: General skin exam: normal color Neuro: General: oriented to person, oriented to place and oriented to time Psych: Appearance: grossly normal
[2022-04-11] MEDS: DOCUSATE SODIUM 100 MG CAPSULE PO (09:14)
[2022-04-11] MEDS: NIFEdipine 30 MG TAB.ER.24 PO (09:14)
--- NOTE | 2022-04-11 09:36 | PC.NURSE ---
No pills noted in emesis.
[2022-04-11] MEDS: ONDANSETRON INJ 4 MG/2 ML VIAL IV PUSH (09:40)
--- NOTE | 2022-04-16 07:03 | PM.OBTRLD ---
OB - Triage/Final Diagnosis Visit Information Date of evaluation: 04/09/22 Reason for evaluation: threatened labor Comments/Additional reasons for admission: I have assessed the risk for this patient, Afshan Capone, and determined that she would benefit from observation care. Evaluation Laboratory results: Laboratory Tests 04/09/22 04/10/22 04/10/22 18:45 04:31 04:31 WBC 18.1 H RBC 3.88 L Hgb 10.7 L D Hct 32.6 L MCV 84.0 MCH 27.6 MCHC 32.8 RDW 13.6 Plt Count 225 MPV 10.8 H Immature Gran % (Auto) 1.3 H Neut % (Auto) 89.3 H Lymph % (Auto) 7.1 L [place] % (Auto) 2.0 L Eos % (Auto) 0.1 Baso % (Auto) 0.2 Lymph # (Auto) 1.28 [place] # (Auto) 0.4 Eos # (Auto) 0.0 Baso # (Auto) 0.0 Abs Immat Gran (auto) 0.24 H Absolute Neuts (auto) 16.2 H Absolute Nucleated RBC 0.0 Nucleated RBC % 0.0 Sodium 134 L Potassium 3.5 Chloride 104 Carbon Dioxide 19 L Anion Gap 11 BUN 5 L Creatinine 0.50 L Estim Creat Clear Calc 140 Estimated GFR > 60 Glucose 114 H Calcium 8.9 Magnesium Total Bilirubin 0.7 AST 36 ALT 25 Alkaline Phosphatase 230 H Total Protein 7.0 Albumin 3.7 Urine Color Yellow Urine Appearance Slightly cloudy Urine pH 7.0 Ur Specific [place] 1.015 Urine Protein Trace Urine Glucose (UA) Negative Urine Ketones Trace Ur Blood (Man) Negative Urine Nitrate Negative Urine Bilirubin 1+ H Urine Urobilinogen 1.0 Leukocyte Esterase Rfl Negative Urine RBC 0-2 Urine WBC 0-3 Ur Squamous Epith Cells Few Amorphous Sediment Few H Urine Bacteria Trace Urine Mucus Rare 04/11/22 04:24 WBC RBC Hgb Hct MCV MCH MCHC RDW Plt Count MPV Immature Gran % (Auto) Neut % (Auto) Lymph % (Auto) [place] % (Auto) Eos % (Auto) Baso % (Auto) Lymph # (Auto) [place] # (Auto) Eos # (Auto) Baso # (Auto) Abs Immat Gran (auto) Absolute Neuts (auto) Absolute Nucleated RBC Nucleated RBC % Sodium Potassium Chloride Carbon Dioxide Anion Gap BUN Creatinine Estim Creat Clear Calc Estimated GFR Glucose Calcium Magnesium 5.2 H Total Bilirubin AST ALT Alkaline Phosphatase Total Protein Albumin Urine Color Urine Appearance Urine pH Ur Specific Bruno Urine Protein Urine Glucose (UA) Urine Ketones Ur Blood (Man) Urine Nitrate Urine Bilirubin Urine Urobilinogen Leukocyte Esterase Rfl Urine RBC Urine WBC Ur Squamous Epith Cells Amorphous Sediment Urine Bacteria Urine Mucus
--- NOTE | 2022-04-17 07:42 | P.DS_ITS ---
DS: Admitting Diagnosis Discharge Date 04/11/22 Admitting Diagnosis 04/11/22 OB - DS: Summary OB Procedures : Other (undelivered) OB Procedures Intrapartum: Other (undelivered) OB Procedures: : Other (undelivered) Time Spent with Patient Time attestation: Total time spent providing and/or coordinating discharge services: Discharge Plan Discharge Attending physician on discharge: Chinyere Chaparro Consulting providers: Chinyere Chaparro ; Michele Bucio V. Discharging Clinician: Chinyere Chaparro Patient Disposition: Home, Self-Care Activity: pelvic rest Diet: regular Discharge Instructions: OB ANTEPARTUM DISCHARGE INSTRUCTIONS This information is given to help you properly care for yourself at home after your discharge from the hospital. Follow these instructions until your doctor tells you otherwise. DIET: Eat Three Well Balanced Meals per Day OR Small Frequent Feedings Drink at Least Eight 8-Ounce Glasses of Caffeine-Free Beverages Daily ACTIVITY: Increase Periods of Rest Pelvic Rest- No [place] RETURN TO LABOR AND DELIVERY IF YOU HAVE: Any Change In Baby's Normal Movement Pattern Any Leakage of Fluid More than 4 Contractions in an Hour Vaginal Bleeding Warning Signs of Pre-term Labor as per Handout Contractions may feel like abdominal pain, tightening, cramping, pressure, back ache, or thigh ache. FOLLOW-UP CARE: Keep Next Scheduled Appointment To see Dr. Gilbert on 04/18/22 Valuables released to patient or family? N/A Medications from home returned to patient? N/A I Have Received Information Regarding Effective Home Pain Management I Acknowledge Receipt of and Understand the Above Instructions IF YOU HAVE ANY QUESTIONS REGARDING THESE INSTRUCTIONS, PLEASE CALL [phone]. IF PROBLEMS ARISE, CALL YOUR PROVIDER. IF EMERGENCY CARE IS NEEDED, [facility] EMERGENCY ROOM IS AVAILABLE 24 HOURS A DAY. Stand Alone Forms: General Discharge Information Follow-up/Referrals: Jimenez Gilbert MD [Physician] - Discharge Medications: New nifedipine 60 mg Tablet Extended Release 24hr 60 mg PO DAILY 30 Days Qty: 30 0RF Date of admission: 04/10/22 19:10 Primary Care Provider: PHYSICIAN,ORGAN [employer] Admitting Provider: Jimenez Gilbert Attending physician on admission: Jimenez Gilbert Condition: Stable
== END 2022-04-11 18:39 | disposition home or self-care (01) | DRG 563 ==
PROVIDERS: Advanced Practice Midwife; Admitting Provider Obstetrics & Gynecology; Visit Provider Obstetrics & Gynecology
DX: O60.00 Preterm labor without delivery, unspecified trimester (principal); Z3A.34 34 weeks gestation of pregnancy; Z87.51 Personal history of pre-term labor
CPT/HCPCS: 36415; 76816; 76819; 80053; 81001; 83735; 85025; A9270; J0702; J2405; J3105; J3475; J7120

== ENCOUNTER 2022-04-13 14:07 | Observation (INO) | payer OTHER, SELFPAY ==
[2022-04-13 14:30] VITALS: BP 153/76; PULSE 102
[2022-04-13 14:46] VITALS: BP 135/70; PULSE 91
[2022-04-13 15:00] VITALS: BP 158/106; PULSE 107
[2022-04-13 15:16] VITALS: BP 131/65; PULSE 80
[2022-04-13 15:30] VITALS: BP 128/68; PULSE 68
[2022-04-13 15:45] VITALS: BP 129/70; PULSE 76
--- NOTE | 2022-04-16 07:00 | PM.OBTRLD ---
OB - Triage/Final Diagnosis Visit Information Date of evaluation: 04/13/22 Reason for evaluation: threatened labor Comments/Additional reasons for admission: I have assessed the risk for this patient, Afshan Capone, and determined that she would benefit from observation care.
== END 2022-04-13 16:15 | disposition home or self-care (01) ==
PROVIDERS: Admitting Provider Obstetrics & Gynecology; Visit Provider Obstetrics & Gynecology
DX: O47.03 False labor before 37 completed weeks of gestation, third trimester (principal); Z3A.34 34 weeks gestation of pregnancy
CPT/HCPCS: G0378; G0379

== ENCOUNTER 2022-04-18 15:10 | Outpatient (CLI) | payer OTHER, SELFPAY ==
[2022-04-18 15:57] LABS: Basophils Absolute Auto 0.1 K/mm3 (0.0-0.1); Basophils Percent Auto 0.7 % (0.2-1.2); Eosinophils Absolute Auto 0.2 K/mm3 (0-0.3); Eosinophils Percent Auto 1.6 % (0-4.4); Hematocrit 39.8 % (37.0-47.0); Hemoglobin 12.9 g/dL (12.0-15.0); Immature Granulocyte Absolute 0.32 K/mm3 (0.00-0.031); Immature Granulocyte Percent A 2.1 % (0-0.5); Lymphocytes Absolute Auto 2.46 K/mm3 (0.9-3.2); Lymphocytes Percent Auto 16.3 % (18.3-44.2); Mean Corpuscular HGB Conc 32.4 g/dl (32-36); Mean Corpuscular Hemoglobin 27.6 pg (26-34); Monocytes Absolute Auto 1.1 K/mm3 (0.1-0.6); Monocytes Percent Auto 7.6 % (2.6-8.5); Neutrophils Absolute Auto 10.8 K/mm3 (1.3-6.7); Neutrophils Percent Auto 71.7 % (45.5-73.1); Platelet Count Result 239 k/mm3 (150-375); Red Blood Count 4.68 M/mm3 (4.2-5.4); Red Cell Distribution Width 13.7 % (11.5-14.5); White Blood Count 15.1 K/mm3 (4.5-10.0)
[2022-04-18 16:05] LABS: Alanine Aminotransferase 79 U/L (6-35); Albumin Level 4.3 g/dL (3.5-5.1); Alkaline Phosphatase 318 U/L (38-126); Anion Gap 13 mmol/L (8-16); Aspartate Amino Transferase 60 U/L (14-36); Bilirubin,Total 0.7 mg/dL (0.2-1.3); Blood Urea Nitrogen 3 mg/dL (7-17); Calcium 9.4 mg/dL (8.4-10.2); Carbon Dioxide 18 mmol/L (22-30); Chloride 106 mmol/L (98-107); Estimated Glomerular Filt Rate > 60; Glucose 73 mg/dL (65-110); Potassium 3.6 mmol/L (3.4-5.0); Sodium 137 mmol/L (137-145); Uric Acid 7.2 mg/dL (2.5-7.5)
[2022-04-18 16:12] LABS: Creatinine Urine 39.8 mg/dL; Total Protein Urine Random 12 mg/dL
== END 2022-04-18 15:11 | disposition home or self-care (01) ==
LOC: ANHLAB 15:12
PROVIDERS: Visit Provider Obstetrics & Gynecology
DX: O13.9 Gestational [pregnancy-induced] hypertension without significant proteinuria, unspecified trimester (principal); Z3A.00 Weeks of gestation of pregnancy not specified
CPT/HCPCS: 36415; 80053; 82570; 84156; 84550; 85025

== ENCOUNTER 2022-04-18 21:06 | Inpatient (IN) | payer OTHER, SELFPAY ==
[2022-04-18] VITALS (10 sets, daily range): BP systolic 129–153; BP diastolic 76–94; PULSE 77–95; RESP 16–18; TEMP 36.7; BMI 22.2
--- NOTE | 2022-04-18 21:06 | LDADM ---
This patient, Afshan Capone, was admitted to Labor/Delivery/Recovery 104 on 04/18/22 at 21:06. Plans for labor, pain management and were discussed with patient. Patient/family oriented to hospital policies and general routines including ID bracelet, bed and alarms, visiting hours, pain management, procedures, bathroom and other care routines, personal items, smoking policy, room service/diet and guest tray routines, security routines, and visiting hours. Patient/Family are encouraged to report perceived risks to care and to ask questions if they do not understand what they are told or what they should do. See OBIX for further documentation.
[2022-04-18 21:42] LABS: Basophils Absolute Auto 0.1 K/mm3 (0.0-0.1); Basophils Percent Auto 0.4 % (0.2-1.2); Eosinophils Absolute Auto 0.2 K/mm3 (0-0.3); Eosinophils Percent Auto 1.1 % (0-4.4); Hematocrit 35.2 % (37.0-47.0); Hemoglobin 11.7 g/dL (12.0-15.0); Immature Granulocyte Percent A 1.9 % (0-0.5); Lymphocytes Absolute Auto 2.59 K/mm3 (0.9-3.2); Mean Corpuscular HGB Conc 33.2 g/dl (32-36); Mean Corpuscular Hemoglobin 27.5 pg (26-34); Mean Corpuscular Volume 82.6 fl (80-100); Monocytes Absolute Auto 1.2 K/mm3 (0.1-0.6); Monocytes Percent Auto 7.2 % (2.6-8.5); Neutrophils Absolute Auto 11.9 K/mm3 (1.3-6.7); Neutrophils Percent Auto 73.4 % (45.5-73.1); Platelet Count Result 223 k/mm3 (150-375); Red Blood Count 4.26 M/mm3 (4.2-5.4); Red Cell Distribution Width 13.6 % (11.5-14.5); White Blood Count 16.2 K/mm3 (4.5-10.0)
[2022-04-18] MEDS: AMPICILLIN 2 GM/NS 100 ML 2 GM/100 ML BAG IVPB (22:10)
[2022-04-18] MEDS: LACTATED RINGERS 1,000 ML 75 ML IV CONT (22:10)
[2022-04-18] MEDS: OXYTOCIN 30 UNITS/NS 500 ML 30 UNITS/500 ML BAG IV CONT (22:10)
[2022-04-18] MEDS: MAGNESIUM SULF 4 GM/WATER100ML 4 GM/100 ML BAG IVPB (22:15)
[2022-04-18] MEDS: MAGNESIUM SULF 20GM/WATER500ML 500 ML 50 MG IV CONT (22:49)
--- NOTE | 2022-04-18 23:59 | PM.IMHP ---
H&P: HPI History of Present Illness Date/Time: 04/18/22 23:59 Chief Complaint: induction of labor Narrative: Afshan is a 21yo at 35.0 here for IOL severe PreE. Admitted last week for PTL, received steroids and put on nifedipine. In office this week, BPs moderately elevated even on 60 of nifedipine. PIH labs done stat for h/o severe PreE last , showed PC ratio >0.3 and elevated LFTs, she was called and sent in for induction. she is on magnesium and pitocin. otherwise uncomplicated. Review of Systems Review of Systems: All systems reviewed & are unremarkable except as noted in HPI and below PMFSH Past Medical History Medical History No active medical problems Social History Social History Smoking status: Current some day smoker Tobacco type: e-cigarettes/vaping Additional smoking assessment comments: patient reports occasional vaping with inconsistant schedule Substance use: former Gender identity (if verbalized by the patient): Female Spiritual care concerns: No Meds Home Medications and Allergies Home Medications Medication Instructions Recorded Confirmed Type nifedipine 60 mg tablet,extended 60 mg PO DAILY 30 days #30 tabs 04/11/22 Rx release 24 hr Allergies Allergy/AdvReac Type Severity Reaction Status Date / Time No Known Allergies Allergy Verified 04/09/22 19:31 Vital Signs Vital Signs - 24 hr 04/18/22 21:30 04/18/22 21:51 04/18/22 22:00 Pulse Rate 82 95 Blood Pressure 153/79 H 131/84 Oxygen Delivery Room Air 04/18/22 22:15 04/18/22 22:31 04/18/22 22:45 Pulse Rate 90 84 78 Blood Pressure 136/90 131/94 H 129/76 Oxygen Delivery 04/18/22 23:00 04/18/22 23:15 04/18/22 23:31 Pulse Rate 78 81 77 Blood Pressure 140/80 141/89 H 130/94 H Oxygen Delivery 04/18/22 23:45 Pulse Rate 84 Blood Pressure 131/92 H Oxygen Delivery Exam Const: General: no acute distress Resp: Effort & Inspection: normal respiratory effort Auscultation: clear to auscultation bilaterally Cardio: Rate: regular rate Rhythm: regular rhythm GI: GI Palp: Yes Soft to palpation Extrem: General: normal to inspection H&P: Results Labs Labs: Short CBC 04/18/22 Range/Units 21:33 WBC 16.2 H (4.5-10.0) K/mm3 Hgb 11.7 L (12.0-15.0) g/dL Hct 35.2 L (37.0-47.0) % Plt Count 223 (150-375) k/mm3 Assessment and Plan Assessment and plan (1) Severe preeclampsia: Code(s): O14.10 - Severe pre-eclampsia, unspecified trimester Status: Acute Plan mag pitocin ampicillin
[2022-04-19] VITALS (66 sets, daily range): BP systolic 95–151; BP diastolic 58–103; PULSE 27–120; RESP 16–18; TEMP 36.3–37.1; O2SAT 87–100
[2022-04-19 00:48] LABS: Amphetamine Screen Urine Negative (Negative); Barbiturate Screen Urine Negative (Negative); Benzodiazepines Screen Urine Negative (Negative); Cannabinoid Screen Urine Positive (Negative); Cocaine Screen Urine Negative (Negative); Methadone Screen Urine Negative (Negative); Opiate Screen Urine Negative (Negative); Phencyclidine Screen Urine Negative (Negative)
[2022-04-19] MEDS: AMPICILLIN 1 GM/NS 50 ML 1 GM/50 ML BAG IVPB ×2 (02:16→06:44)
--- NOTE | 2022-04-19 03:35 | WPDANESEPP ---
Anes - Eval Pre Procedure Procedure: labor epidural Date/Time: 04/19/22 03:35 Surgeon: chery Preop Diagnosis: pain during labor Pre Op Diagnosis: Induction of Labor Patient Data Age: 21 Gender: F Height: 1.68 m Weight: 62.5 kg Last Vital Signs Pulse 76 04/19/22 03:30 BP 151/90 H 04/19/22 03:30 O2 Del Method Room Air 04/18/22 21:30 Allergies Allergy/AdvReac Type Severity Reaction Status Date / Time No Known Allergies Allergy Verified 04/09/22 19:31 Home Medications Medication Instructions Recorded Confirmed Type nifedipine 60 mg tablet,extended 60 mg PO DAILY 30 days #30 tabs 04/11/22 Rx release 24 hr Laboratory Tests 04/18/22 04/18/22 04/18/22 21:33 21:33 21:33 WBC 16.2 K/mm3 H K/mm3 (4.5-10.0) RBC 4.26 M/mm3 M/mm3 (4.2-5.4) Hgb 11.7 g/dL L g/dL (12.0-15.0) Hct 35.2 % L % (37.0-47.0) MCV 82.6 fl fl (80-100) MCH 27.5 pg pg (26-34) MCHC 33.2 g/dl g/dl (32-36) RDW 13.6 % % (11.5-14.5) Plt Count 223 k/mm3 k/mm3 (150-375) MPV 11.0 fl H fl (7.4-10.4) Immature Gran % (Auto) 1.9 % H % (0-0.5) Neut % (Auto) 73.4 % H % (45.5-73.1) Lymph % (Auto) 16.0 % L % (18.3-44.2) [place] % (Auto) 7.2 % % (2.6-8.5) Eos % (Auto) 1.1 % % (0-4.4) Baso % (Auto) 0.4 % % (0.2-1.2) Lymph # (Auto) 2.59 K/mm3 K/mm3 (0.9-3.2) [place] # (Auto) 1.2 K/mm3 H K/mm3 (0.1-0.6) Eos # (Auto) 0.2 K/mm3 K/mm3 (0-0.3) Baso # (Auto) 0.1 K/mm3 K/mm3 (0.0-0.1) Abs Immat Gran (auto) 0.30 K/mm3 H K/mm3 (0.00-0.031) Absolute Neuts (auto) 11.9 K/mm3 H K/mm3 (1.3-6.7) Absolute Nucleated RBC 0.0 K/mm3 K/mm3 (0.0-0.012) Nucleated RBC % 0.0 % % (0.0-0.2) Urine Opiates Screen Urine Methadone Screen Ur Barbiturates Screen Ur Phencyclidine Scrn Ur Amphetamine Screen U Benzodiazepines Scrn Urine Cocaine Screen U Cannabinoids Screen RPR Pending Blood Type O Positive Antibody Screen Negative 04/19/22 00:24 WBC RBC Hgb Hct MCV MCH MCHC RDW Plt Count MPV Immature Gran % (Auto) Neut % (Auto) Lymph % (Auto) [place] % (Auto) Eos % (Auto) Baso % (Auto) Lymph # (Auto) [place] # (Auto) Eos # (Auto) Baso # (Auto) Abs Immat Gran (auto) Absolute Neuts (auto) Absolute Nucleated RBC Nucleated RBC % Urine Opiates Screen Negative (Negative) Urine Methadone Screen Negative (Negative) Ur Barbiturates Screen Negative (Negative) Ur Phencyclidine Scrn Negative (Negative) Ur Amphetamine Screen Negative (Negative) U Benzodiazepines Scrn Negative (Negative) Urine Cocaine Screen Negative (Negative) U Cannabinoids Screen Positive A (Negative) RPR Blood Type Antibody Screen Patient hx anesthesia problems: none Family hx anesthesia problems: none Results Review: All pre-operative results and documents have been reviewed as part of the pre-operative evaluation. [facility] Past Medical History Medical History No active medical problems Social History Social History Smoking status: Current some day smoker Tobacco type: e-cigarettes/vaping Additional smoking assessment comments: patient reports occasional vaping with inconsistant schedule Substance use: former Gender identity (if verbalized by the patient): Female Spiritual care concerns: No Exam Day of Procedure 04/19/22 03:35
[2022-04-19 07:38] LABS: Alanine Aminotransferase 78 U/L (6-35); Albumin Level 3.8 g/dL (3.5-5.1); Alkaline Phosphatase 306 U/L (38-126); Anion Gap 11 mmol/L (8-16); Aspartate Amino Transferase 75 U/L (14-36); Bilirubin,Total 0.9 mg/dL (0.2-1.3); Blood Urea Nitrogen 5 mg/dL (7-17); Calcium 7.9 mg/dL (8.4-10.2); Carbon Dioxide 20 mmol/L (22-30); Chloride 102 mmol/L (98-107); Estimated CRCL calculation 140 ml/min; Estimated Glomerular Filt Rate > 60; Glucose 89 mg/dL (65-110); Potassium 4.3 mmol/L (3.4-5.0); Sodium 133 mmol/L (137-145); Uric Acid 7.2 mg/dL (2.5-7.5)
[2022-04-19] MEDS: MAGNESIUM SULF 20GM/WATER500ML 500 ML 50 MG IV CONT ×2 (08:17→18:52)
--- NOTE | 2022-04-19 09:03 | PM.OBPRVD ---
OB - Delivery Note Procedure Delivery date: 04/19/22 Procedure: Events: Preeclampsia w severe features Induction method: AROM and Per Pitocin Protocol Delivery monitor: External FHT and External Uterine Laceration Description: None Specimen: Yes Quantitative Blood Loss (ml): 230 Anesthesia type: Epidural Disposition: Floor Narrative: With adequate expulsive efforts by the mother, the baby's head was delivered OA. The baby's anterior shoulder was delivered under the pubic symphysis without difficulty. The posterior shoulder and the rest of the baby delivered without difficulty. The infant was placed on the mothers chest and suctioned and stimulated. The cord was clamped and cut after 30 seconds. Mother and baby both stable. Baby Date of : 04/19/22 Time of : 08:50 Weeks of gestation at delivery: 35 Infant gender: Male Weight (pounds): 6 Weight (ounces): 0 presentation: vertex Placenta delivery description: Spontaneous Cord Vessel Description: 3 Vessels and Clamped/Cut score one minute: 8 score five minutes: 9
[2022-04-19] MEDS: OXYTOCIN 30 UNITS/NS 500 ML 30 UNITS/500 ML BAG 125 UNITS IV CONT (09:21)
[2022-04-19] MEDS: ONDANSETRON INJ 4 MG/2 ML VIAL IV PUSH (10:21)
--- NOTE | 2022-04-19 11:07 | PC.NURSE ---
Patient transferred to post room #283 via wheel chair. Support person present. Oriented to unit, room, information board, rooming in, admission packet and security measures. Patient verbalizes understanding.
[2022-04-19] MEDS: IBUPROFEN 600 MG TABLET PO (12:55)
--- NOTE | 2022-04-19 13:00 | PC.NURSE ---
Patient notified RN that she had her aunt help her to the bathroom instead of using the bedside commode as ordered by Dr. Kenyon. Advised pt that she needs to use the bedside commode until her Magnesium is dc'd as she was told earlier upon admission to the post unit. Pt agreed.
[2022-04-19] MEDS: LACTATED RINGERS 1,000 ML 75 ML IV CONT (13:30)
[2022-04-20] MEDS: LACTATED RINGERS 1,000 ML 75 ML IV CONT (00:42)
[2022-04-20 04:00] VITALS: BP 125/84; PULSE 56; RESP 16; TEMP 36.9
[2022-04-20] MEDS: MAGNESIUM SULF 20GM/WATER500ML 500 ML 50 MG IV CONT (04:14)
[2022-04-20 05:40] LABS: Hematocrit 31.3 % (37.0-47.0); Hemoglobin 10.5 g/dL (12.0-15.0)
--- NOTE | 2022-04-20 08:22 | P.PNOB_ITS ---
OB - PN: Subj Subjective Date/time seen: 04/20/22 08:22 Patient comments: no complaints and pain well controlled baby status: doing well and bottle feeding well [place] feeding status: exclusively bottle feeding Narrative: BPs normal since delivery on magnesium. OB - PN: Obj Data Labs CBC & Chem 7: 04/20/22 04:02 04/19/22 07:00 Labs: Laboratory Results - last 24 hr 04/20/22 04:02 Hgb 10.5 L Hct 31.3 L OB - PN A/P Plan day: 1 Plan: routine care Comments: BPs great so far since delivery mag off at 0850 repeat LFTs tomorrow earliest home tomorrow circ done Time Spent With Patient Time: Total time spent is greater than 50% in coordination of care (as documented) at patient's floor/unit and/or counseling patient: Time with patient: less than 15 minutes Exam Narrative: NAD abdomen soft, nontender, fundus firm below the umbilicus Extremities nontender, 1+ edema
[2022-04-20 08:50] VITALS: BP 131/79; PULSE 58; RESP 16; TEMP 36.2; O2SAT 100
--- NOTE | 2022-04-20 08:57 | WPDANLDPN2 ---
Anes-Prog Note L&D Date/Time: 04/20/22 08:57 Comfortable throughout: labor and delivery Neuraxial method: epidural Epidural/Spinal procedure site: clean & non-tender Neuro status: Neuro function grossly intact. Cardiovascular status: normal Respiratory status: normal Airway patency: baseline Mental status: baseline Post-Op hydration status: normal Vital Signs: Last Vital Signs Temp 36.9 C 04/20/22 04:00 Pulse 56 L 04/20/22 04:00 Resp 16 04/20/22 04:00 BP 125/84 04/20/22 04:00 Pulse Ox 98 04/19/22 15:25 O2 Del Method Room Air 04/18/22 21:30 Pain score (VAS): 0 I/O: Intake & Output 04/19/22 04/20/22 04/20/22 23:59 07:59 15:59 Intake Total 740 1940 Output Total 600 2500 Balance 140 -560 Post-procedural complaints: none Patient feedback: Patient satisfied with anesthetic care.
[2022-04-20] MEDS: IBUPROFEN 600 MG TABLET PO (11:06)
[2022-04-20 11:52] VITALS: BP 142/72; PULSE 64
[2022-04-20 16:00] VITALS: BP 140/87; PULSE 75
[2022-04-20 19:15] VITALS: BP 133/84; PULSE 75; RESP 16; TEMP 36.4
[2022-04-21 01:17] VITALS: BP 135/87; PULSE 63; RESP 16; TEMP 36.4
[2022-04-21 03:35] VITALS: BP 135/57; PULSE 58; RESP 16; TEMP 36.6
[2022-04-21 07:00] VITALS: BP 122/74; PULSE 55; RESP 16; TEMP 36.2; O2SAT 100
--- NOTE | 2022-04-21 07:02 | PM.OBPNVD ---
OB - PN: Subj Subjective Date/time seen: 04/21/22 07:02 Patient comments: no complaints baby status: doing well Narrative: BPs off mag 131-142/50s-91. Denies CHANG/BV/EP. OB - PN: Obj Data Labs CBC & Chem 7: 04/20/22 04:02 04/19/22 07:00 OB - PN A/P Plan day: 2 Plan: routine care Comments: ALT/AST pending IF LFTs improving and BPs remain normal or mildly elevated, she may DC home late afternoon with close follow up. precautions given Time Spent With Patient Time: Total time spent is greater than 50% in coordination of care (as documented) at patient's floor/unit and/or counseling patient: Time with patient: less than 15 minutes Exam Narrative: NAD abdomen soft, nontender, fundus firm below the umbilicus Extremities nontender, 1+ edema
--- NOTE | 2022-04-21 07:06 | PM.DS ---
DS: Admitting Diagnosis Discharge Date 04/21/22 Admitting Diagnosis severe preeclampsia at 35 weeks DS: Discharge Diagnosis Discharge Diagnosis (1) Severe preeclampsia: Code(s): O14.10 - Severe pre-eclampsia, unspecified trimester Status: Acute (2) , delivered: Code(s): O80 - Encounter for full-term uncomplicated delivery Status: Acute DS: Summary Hospital Course Hospital Course: Afshan is a 21yo who was admitted at 35 weeks for severe PreEclampsia with elevated AST and ALT. She was induced with pitocin and had an uncomplicated vaginal delivery. She recieved magnesium sulfate for seizure prophylaxis and had an uncomplicated course with good blood pressures. She was discharged home late on day 2 in good condition. Status at Discharge Functional status at discharge: independent ambulation Time Spent with Patient Time attestation: Total time spent providing and/or coordinating discharge services: Exam Narrative: NAD abdomen soft, appropriately tender Ext non tender, 1+ edema DS: Data Data Completed and Pending Pending studies at discharge: Pending at discharge 04/19/22 09:28 Surgical [PTH] Routine Discharge Plan Discharge Attending physician on discharge: Karen Kenyon Discharging Clinician: Karen Kenyon Anticipated Discharge Date/Time: 04/21/22 16:00 Patient Disposition: Home, Self-Care Activity: pelvic rest Diet: regular Stand Alone Forms: General Discharge Information Follow-up/Referrals: Karen Kenyon MD [Physician] - 1 Week Discharge Medications: Discontinued nifedipine 60 mg Tablet Extended Release 24hr 60 mg PO DAILY 30 Days Qty: 30 0RF Date of admission: 04/18/22 21:06 Primary Care Provider: UNKNOWN,DOCTOR Admitting Provider: Karen Kenyon Attending physician on admission: Karen Kenyon Condition: Stable
[2022-04-21 07:38] LABS: Alanine Aminotransferase 62 U/L (6-35); Aspartate Amino Transferase 54 U/L (14-36)
[2022-04-21 07:50] LABS: Rapid Plasma Reagin Non-Reactive (NonReactive)
[2022-04-21 11:33] VITALS: BP 138/80; PULSE 50
[2022-04-21] MEDS: IBUPROFEN 600 MG TABLET PO (13:52)
[2022-04-21 15:39] VITALS: BP 132/84; PULSE 71
[2022-04-22 09:50] VITALS: BP 126/75; PULSE 71; RESP 20; TEMP 36.9; O2SAT 99
== END 2022-04-21 16:01 | disposition home or self-care (01) | DRG 560 ==
LOC: ANHLDR 21:13 → ANHOB2 04-19 11:12
PROVIDERS: Admitting Provider Obstetrics & Gynecology; Visit Provider Obstetrics & Gynecology
DX: O14.14 Severe pre-eclampsia complicating childbirth (principal); Z37.0 Single live birth; Z3A.35 35 weeks gestation of pregnancy; O60.14X0 Preterm labor third trimester with preterm delivery third trimester, not applicable or unspecified
CPT/HCPCS: 36415; 80053; 80307; 82570; 84156; 84450; 84460; 84550; 85014; 85018; 85025; 86592; 86850; 86900; 86901; 88307; A9270; J0290; J2405; J2590; J2795; J3475; J7120

== ENCOUNTER 2022-07-25 09:45 | Emergency (ER) | payer OTHER, SELFPAY ==
--- NOTE | ~2022-07-25 | XR_ITS ---
EXAMINATION: XR elbow RT min 3V DATE: 07/25/2022 10:04 INDICATION: Right elbow pain. Fall. TECHNIQUE: 4 views of right elbow were obtained. COMPARISON: None. FINDINGS: Bone alignment is normal. No fracture. Joint spaces are normal. No elbow joint effusion. IMPRESSION: 1. Normal right elbow. Reviewed, dictated and finalized at location A. ER TENDER IMPRESSION: 1. Normal right elbow.
--- NOTE | ~2022-07-25 | XR_ITS ---
XR sacrum coccyx min 2V DATE: 07/25/2022 11:50 INDICATION: Fall down steps today. Sacral and coccygeal pain. TECHNIQUE: AP, angled AP and lateral views COMPARISON: None FINDINGS: No fracture or dislocation or bone destruction. Normal alignment at the pubic symphysis and sacroiliac joints. IMPRESSION: Negative Reviewed, dictated and finalized at location B. MS REPRESENTATIVE IMPRESSION: Negative
--- NOTE | ~2022-07-25 | XR_ITS ---
XR hip RT min 3V w AP pelvis DATE: 07/25/2022 11:50 INDICATION: Fall down steps today. Pelvis and right hip pain. TECHNIQUE: AP pelvis. AP and lateral views right hip COMPARISON: None FINDINGS: There is levoscoliosis of the lumbar spine. No pelvic fracture or bone destruction. Normal alignment at the pubic symphysis and sacroiliac joints. Hip joint spaces are symmetric and well preserved. No fracture or dislocation, avascular necrosis or bone destruction of either hip is evident. IMPRESSION: No pelvic or left hip fracture Lumbar levoscoliosis Reviewed, dictated and finalized at location B. RAM EVALUATION CONSULTANT
[2022-07-25 10:03] VITALS: BP 135/85; PULSE 87; RESP 15; TEMP 36.6; O2SAT 100
--- NOTE | 2022-07-25 11:16 | ED.UPPEXIN ---
HPI - Extremity Injury (Upper) General Chief Complaint: Extremity Injury, Upper <Suyapa Griffin PA-C - Last Filed: 07/25/22 12:58> Stated Complaint: fall - right elbow pain <CARMELINA Schaefer Last Filed: 07/25/22 12:58> Time Seen by Provider: 07/25/22 11:04 <Suyapa Griffin PA-C - Last Filed: 07/25/22 12:58> Source: patient <CARMELINA Schaefer Last Filed: 07/25/22 12:58> Mode of arrival: ambulatory <CARMELINA Schaefer Last Filed: 07/25/22 12:58> Limitations: no limitations <CARMELINA Schaefer Last Filed: 07/25/22 12:58> History of Present Illness HPI narrative: This is a 21-year-old female that presents to the emergency department for right elbow pain after an injury just prior to arrival. Reports she was walking down her steps and slipped. She fell onto her bottom and slid down about 7 additional steps. She was holding her toddler and was holding him up in the air so he would not get injured. Since she has had right elbow pain. Worse with movement and relieved with rest. Also reports pain in her tailbone and right hip. She did not hit her head or lose consciousness. Denies numbness or weakness. <Suyapa Griffin PA-C - Last Filed: 07/25/22 12:58> Related Data Allergies/Adverse Reactions: Allergies Allergy/AdvReac Type Severity Reaction Status Date / Time No Known Allergies Allergy Verified 07/25/22 10:05 <CARMELINA Schaefer Last Filed: 07/25/22 12:58> Review of Systems Review of Systems: CONSTITUTIONAL: Denies fever MUSCULOSKELETAL: Reports back pain, joint pain, and myalgia. NEUROLOGIC: Denies numbness, or weakness. <CARMELINA Schaefer Last Filed: 07/25/22 12:58> All systems reviewed & are unremarkable except as noted in HPI and below <CARMELINA Schaefer Last Filed: 07/25/22 12:58> PMFSH Past Medical History Medical History: Medical History No active medical problems <Suyapa Griffin PA-C - Last Filed: 07/25/22 12:58> Social History Social History: Social History Smoking status: Current some day smoker Tobacco type: e-cigarettes/vaping Additional smoking assessment comments: patient reports occasional vaping with inconsistant schedule Substance use: former Gender identity (if verbalized by the patient): Female Spiritual care concerns: No <Suyapa Griffin PA-C - Last Filed: 07/25/22 12:58> Exam Narrative: GENERAL: Well-appearing, well-nourished, and in no acute distress. HEAD: Normocephalic, atraumatic. EYES: EOMI. CHEST: Clear to auscultation. No respiratory distress. No wheezes rales or rhonchi HEART: Regular rate and rhythm. No murmur heard. Normal peripheral pulses. BACK: No midline thoracic or lumbar spine tenderness. Tender to palpation over the coccyx EXTREMITIES: Normal range of motion. No edema or obvious deformity. Strength equal in bilateral lower extremities (5/5) SKIN: Warm, dry, no rash. NEURO: No focal deficits. Alert and oriented x3. PSYCH: Normal mood and affect <Suyapa Griffin PA-C - Last Filed: 07/25/22 12:58> Course SHIP/REC/DOC CONTROL/PA Physician Supervision For this patient encounter, I reviewed the SHIP/REC/DOC CONTROL or PA documentation, treatment plan, and medical decision making <Donato Ignacio MD - Last Filed: 07/25/22 14:13> Vital Signs Vital signs: Vital Signs Temperature 97.8 F 07/25/22 10:03 Pulse Rate 87 07/25/22 10:03 Respiratory Rate 15 07/25/22 10:03 Blood Pressure 135/85 07/25/22 10:03 Pulse Oximetry 100 07/25/22 10:03 Oxygen Delivery Room Air 07/25/22 10:03 Temperature 97.8 F 07/25/22 10:03 Pulse Rate 87 07/25/22 10:03 Respiratory Rate 15 07/25/22 10:03 Blood Pressure 135/85 07/25/22 10:03 Pulse Oximetry 100 07/25/22 10:03 Oxygen Delivery Room Air 07/25/22 10:03 <Suyapa Griffin PA-C - Last Filed:
--- NOTE | 2022-07-25 11:40 | PC.NURSE ---
Patient reports she is on her period and is unable to provide a urine sample. Madyson in radiology notified.
== END 2022-07-25 13:20 | disposition home or self-care (01) ==
PROVIDERS: Emergency Provider Emergency Medicine
DX: S50.01XA Contusion of right elbow, initial encounter (principal); S30.0XXA Contusion of lower back and pelvis, initial encounter; M25.551 Pain in right hip; F17.209 Nicotine dependence, unspecified, with unspecified nicotine-induced disorders; W10.9XXA Fall (on) (from) unspecified stairs and steps, initial encounter
CPT/HCPCS: 72220; 73080; 73502; 99284

== ENCOUNTER 2024-10-16 10:27 | Emergency (ER) | payer OTHER, SELFPAY ==
[2024-10-16 10:28] VITALS: BP 124/87; PULSE 100; RESP 18; TEMP 36.7; O2SAT 99
--- OUTSIDE RECORDS SUMMARY | 2024-10-16 10:29 | XMS_ITS | Data Portability ---
Author Organization [facility] Address [address] [place] [address] [place] [address] Assessment Encounter Date Assessment Date Assessment LastModified by Organization Details LastModified Time 06/09/2022 06/09/2022 FU for exam Normal exam May resume normal activities contraceptive plan-- OCP. has a few packs left at home, will start with menses. FU for WWE 2 mos. [email or web address] Not available 06/10/2022 09:43:55 07/21/2022 07/21/2022 labs per below if no period in 1 mo, preg test and US hcg neg today declines contraception flexeril for pelvic muscle pain. discussed PT- pt declines for now. [email or web address] Not available 07/28/2022 08:12:22 08/12/2022 08/12/2022 healthy female exam GC/CT/trich done declines further std testing pap at 21 contraception-OC P. will call when needs refills. HPV vaccine done FU 1 year or prn [email or web address] Not available 08/12/2022 18:00:04 Plan of Treatment Reminders Order Date Submit Date Provider Last Modified By Organization Details Last Modified Time Details Appointments None recorded . Lab pregnanc y test, urine 2021 022 [facility], [address], [place], [address], 05:00:50 testoste yari, free + total, serum 2021 022 [facility] (Lab), [address], [place], [address], 21:11:53 dhea-sul fate, serum 2021 [facility] (Lab), [address], [place], [address], 21:11:50 estradio l, serum 2021 [facility] (Lab), [address], [place], [address], 21:11:51 FSH (follicl e-stimul ating hormone) , serum 2021 [facility] (Lab), [address], [place], [address], 21:11:51 HbA1c (hemoglo bin A1c), blood 2021 [facility] (Lab), [address] [facility] [address], [place], [address], 21:11:52 prolacti n, serum 2021 [facility] (Lab), [address] [facility], [place], [address], 21:11:52 TSH, serum or plasma 2021 [facility] (Lab), [address], [place], [address], 21:11:52 Referral None recorded . Procedures None recorded . Surgeries None recorded . Imaging US, pelvis, complete 2022 [facility], [address], [place], [address], 3 14:57:16 Medication Orders cycloben zaprine 10 mg tablet 2021 022 [facility][id number], [address], [place], [place], [id number], 2 16:29:21 fluconaz ole 150 mg tablet 2022 023 [facility] #[id number], [address], [place], [place], [id number], 3 16:48:39 Patient TargetsNo targets recorded. Patient InstructionsNo instructions recorded. Reason for Referral None Reported. Results Created Date Observation Date Name Description Value Unit Range Abnormal Flag Note LastModifiedBy Organization Detail LastModifiedTime 07/21/20 22 07/21/2022 DHEA SULFA TE DHEA-sulfate 273 ug/dL Femal e Range s Age(y ) Range (ug/d L) 10-15 34-28 0 15-20 65-36 8 20-25 148-4 07 25-35 99-34 0 35-45 61-33 7 45-55 35-25 6 55-65 19-20 5 65-75 9-246 > 75 12-15 4 Not Available [facility] (Lab) [address] , [place], [address], 07/25/2022 21:11:50 07/21/20 22 07/21/2022 ESTRA DIOL estradiol 57.9 pg/mL This assay was perfo rmed using [employer] n reage nts and test kits. Value s obtai zion with other assay metho ds or kits canno t be used inter capellan eably . Femal e Estra diol Range s: Folli cular phase 12.4- 233 pg/mL Ovula tion phase 41.0- 398 pg/mL Lutea l phase 22.3- 341 pg/mL Postm enopa usal< 5-138 pg/mL Healt hy Pregn ant Women 1st Trime ster1 54-32 43 pg/mL 2nd Trime ster1 561-2 1280 pg/mL 3rd Trime ster8 525-> 39279 pg/mL Not Available [facility] (Lab) [address], [place], [address], 07/25/2022 21:11:51 07/21/20 22 07/21/2022 FSH FSH 6.3 mIU/m L This assay was perfo rmed using [employer] reage nts and test kits. Value s obtai zion with other assay metho ds or kits canno t be used inter [facility] . Femal es Folli cular : 3.5-1 2.5 mIU/m L Ovula tion: 4.7-2 1.5 mIU/m L Lutea l: 1.7-7 .7 mIU/m L Postm enopa use: 25.8- 134.8 mIU/m L Not Available [facility] (Lab) [address], [place], [address], 07/25/2022 21:11:51 07/21/20 22 07/21/2022 PROLA CTIN prolactin, total 28.80 NG/mL 4.79-2 3.30 high This assay was perfo rmed using [employer] reage nts and test kits. Value s obtai zion with other assay metho ds or kits canno t be used inter [facility] . Not Available [facility] (Lab) [address] [place], [address], 07/25/2022 21:11:52 07/21/20 22 07/21/2022 HEMOG LOBIN A1C hemoglobin A1C 5.2 % 0-5.6 The Ameri can Diabe buzz Assoc iatio n recom mends that a prima ry goal of thera py camila d be a HBA1C of < 7% and that physi cians shoul d reeva luate the treat ment regim en in patie nts with HBA1C value s consi stent ly > 8%. <5.7% Margaux l 5.7 - 6.4% Incre ased risk for diabe buzz >=6.5 % Diagn ostic of diabe buzz <7.0% Goal of thera py >8.0% Actio n sugge sted Not Available [facility] (Lab) [address], [place], [address], 07/25/2022 21:11:52 07/21/20 22 07/21/2022 TSH, REFLE X FREE T4 TSH 0.89 uIU/m L 0.30-5 .33 Not Available [facility] (Lab) [address], [place], [address], 07/25/2022 21:11:52 07/21/20 22 07/21/2022 TESTO STERO NE, FREE, DIREC T WITH TOTAL testosterone , serum 25 NG/dL Not Available [facility] (Lab) [address] [facility] [address], [place], [address], 07/25/2022 21:11:53 07/21/20 22 07/21/2022 TESTO STERO NE, FREE, DIREC T WITH TOTAL free testosterone (direct) 0.6 pg/mL 0.0-4. 2 Perfo rmed at: 01 - [facility] [address] [place] [address] Lab Direc tor: Ubaldo morris PhD, Phone : [phone] Perfo rmed at: 02 - [facility] [address] [place] [address] Lab Direc tor: Mildred sofia MD, Phone : [phone] Not Available [facility] (Lab) [address], [place], [address], 07/25/2022 21:11:53 08/12/20 22 08/12/2022 CT/GC AND TRICH OMONA S VAGIN SIMIN (RRNA ), SWAB chlamydia trachomatis, PCR Negati ve negati ve Not Available [facility] (Lab) [address], [place], [address], 08/13/2022 13:41:58 08/12/20 22 08/12/2022 CT/GC AND TRICH OMONA S VAGIN SIMIN (RRNA ), SWAB neisseria gonorrhoeae, PCR Negati ve negati ve Not Available [facility] (Lab) [address], [place], [address], 08/13/2022 13:41:58 08/12/20 22 08/12/2022 CT/GC AND TRICH OMONA S VAGIN SIMIN (RRNA ), SWAB trichomonas vaginalis ribosomal RNA (rrna) Negati ve negati ve Not Available [facility] (Lab) [address], [place], [address], 08/13/2022 13:41:58 03/28/20 22 03/28/2022 US, obste tric, follo w-up No observ ation record ed. [email or web address] Libby [address], [place], [address], 03/28/2022 12:07:11 03/28/20 22 03/28/2022 US, obste tric, bioph ysica l profi le + non-s tress test No observ ation record ed. [email or web address] Libby [address], [place], [address], 03/28/2022 12:07:21 03/28/20 22 03/28/2022 US, obste tric, follo w-up No observ ation record ed. [email or web address] Sylvia [address], [place], [address], 03/28/2022 19:29:15 03/28/20 22 03/28/2022 non-s tress test No observ ation record ed. [email or web address] Libby [address], [place], [address], 03/28/2022 19:04:07 04/04/20 22 04/04/2022 US, obste tric, follo w-up No observ ation record ed. [email or web address] Sylvia [address], [place], [address], 04/06/2022 23:43:16 04/04/20 22 04/04/2022 non-s tress test No observ ation record ed. [email or web address] Libby [address], [place], [address], 04/04/2022 16:41:20 04/04/20 22 04/04/2022 US, obste tric, bioph ysica l profi le + non-s tress test No observ ation record ed. [email or web address] Libby [address], [place], [address], 04/04/2022 17:27:54 04/10/20 22 04/10/2022 US, obste tric, follo w-up No observ ation record ed. [address] [facility], [place], [address], 04/18/2022 00:13:11 04/10/20 22 04/10/2022 US, obste tric, follo w-up No observ ation record ed. [address] [facility], [place], [address], 04/10/2022 21:48:57 04/18/20 22 04/18/2022 non-s tress test No observ ation [facility] ed. [email or web address] [address], [place], [address], 04/18/2022 14:44:39 04/18/20 22 04/18/2022 US, obste tric, bioph ysica l profi le + non-s tress test No observ ation record ed. [email or web address] Libby [address], [place], [address], 04/18/2022 15:17:06 04/18/20 22 04/18/2022 US, obste tric, bioph ysica l profi le + non-s tress test No observ ation record ed. [email or web address] [address], [place], [address], 03/17/2023 11:09:01 Result Notes None recorded. Problems Name Problem SNOMED Code Status Onset Date Resolution Date Notes Provider Name and Address Organization Details Recorded Time [place] user [id number] Completed 201904/15/2021 need rpt UDS Silvana Sosa [facility], [facility] 1 17:25:23 Nausea and vomiting 62654011 Completed Elenita Moyer [facility], [facility] 0 12:24:13 Back pain complica ting pregnanc y 03671075 Completed Elenita Moyer [facility], [facility] 0 12:24:13 Dilatati on of renal pelvis 659049478 Completed 06/07 LT - 7.1mm Elenita Moyer [facility], [facility] 0 12:24:13 Smoker 21560452 Completed 201904/15/2021 vaping Silvana Sosa [facility], [facility] 1 17:25:26 Gestatio nal diabetes mellitus 72646459 Completed Needs diet teaching byron Elenita Moyer [facility], [facility] 0 12:24:13 Hyperten sive disorder 15659028 Completed Gestatio nal hyperten italo Elenita Moyer [facility], [facility] 0 12:24:13 labor with delivery [id number] 7943202 Completed 201904/15/2021 Karen Kenyon MD [address], [place], [address], [place] [facility] 2 19:00:13 Syphilis test finding 695070610 Completed 11/12/ 2019 04/15/2021 Encntr screen for infectio ns w sexl mode of transmis s;Practi ce ID: 0001 Silvana pan [facility] 17:25:22 Pelvic and perineal pain 089478677 Completed 201804/15/2021 Pelvic and perineal pain;Pra ctice ID: 0001 Silvana pan [facility] 17:25:16 Pregnanc y test negative 934966273 Completed 201804/15/2021 Encounte r for pregnanc y test, result negative ;Practic e ID: 0001 Silvana pan [facility] 17:25:15 Acute vaginiti s 66342636 Completed 201904/15/2021 Acute vaginiti s;Practi ce ID: 0001 Silvana pan, [facility] 17:25:13 Finding of regulari ty of menstrua l cycle Completed 201804/15/2021 Irregula r period;R ecorded Elsewher e: No Locat ion: [facility] S ource: EHR Credit Verification Clerk brady: N Practi ce ID: [email or web address] Ney lable Time: 02:30:00 PM Silvana pan [facility] 17:25:08 Secondar y dysmenor tessie 05532656 Completed 201804/15/2021 Secondar y dysmenor tessie;Rec orded Elsewher e: No Locat ion: [facility] S ource: EHR Credit Verification Clerk brady: N Practi ce ID: [email or web address] Ney lable Time: 01:30:00 PM Silvana pan [facility] 17:25:18 Educatio n Completed 201804/15/2021 Encounte r for other general counseli ng and advice on contrace ption;Re corded Elsewher e: No Locat ion: [facility] S ource: EHR Credit Verification Clerk brady: N Practi ce ID: 0001 Ney lable Time: 01:30:00 PM Silvana pan, [facility] 1 17:25:20 Infectio n screenin g Completed 201804/15/2021 Encounte r for screenin g for oth infec/pa rastc diseases ;Recorde d Elsewher e: No Locat ion: [facility] S ource: EHR Credit Verification Clerk brady: N Practi ce ID: 0001 Ney lable Time: 12:26:55 PM iSlvana pan, [facility] 1 17:25:10 Gonorrhe a of lower genitour inary tract [id number] 9990414 Completed 201804/15/2021 Gonococc al infectio n of lower genitour inary tract, unsp;Rec orded Elsewher e: No Locat ion: [facility] S ource: EHR Credit Verification Clerk brady: N Practi ce ID: 0001 Ney lable Time: 04:00:00 PM Silvana Sosa viviane, [facility] 1 17:25:06 labor with delivery [id number] 0696981 Completed 202111/04/2021 Karen Kenyon MD [address], [place], [address], [facility] 2 19:00:13 Pregnanc y 18522770 Completed 202105/19/2022 Sherine pan, [facility] 2 14:17:19 [place] user [id number] Completed +UDS Sherine pan, [facility] 2 14:17:12 Past pregnanc y history of severe pre-ecla mpsia 752130655 Active delivere d at 34w. ASA, baseline labs, antenata l testing at 32w Sherine Vasquezh l null, [facility] 2 14:17:12 Past pregnanc y history of gestatio nal diabetes mellitus 486845303 Active GCT at 20w, 28 if passes Sherinecheri Barrytieh l null, [facility] 2 14:17:11 Past pregnanc y history of severe pre-ecla mpsia 771528538 Completed delivere d at 34w. ASA, baseline labs, antenata l testing at 32w Sherine Vasquezh l null, [facility] 2 14:17:12 Past pregnanc y history of gestatio nal diabetes mellitus 506040473 Completed GCT at 20w, 28 if passes Sherine Barrytieh l null, [facility] 2 14:17:11 Subchori onic hematoma 768569550 Completed 2021 4.3x1.9x 3.3cm Sherine Xie l null, [facility] 2 14:17:12 Corpus luteum cyst 182798639 Completed 2021 25mm rt Karen Kenyon MD [address], [place], [address], [place] [facility] 2 14:28:09 Pregnanc y 15100041 Completed 201907/16/2020 Sherine Barrytieh l null, [facility] 2 14:17:19 Problem Notes None recorded. Procedures Surgical History None recorded. Imaging Results Imaging Date Name Status LastModified by Organiz ation Details LastModified Time 03/28/2022 US, obstetric, follow-up completed [email or web address] Libby [address], [place], [address], 03/28/2022 12:07:11 03/28/2022 US, obstetric, biophysical profile + non-stress test [facility] [place] [address] [address], [place], [address], 03/28/2022 12:07:21 03/28/2022 US, obstetric, follow-up completed [email or web address] Sylvia [address], [place], [address], 03/28/2022 19:29:15 03/28/2022 non-stress test completed [email or web address], [place], [address], 03/28/2022 19:04:07 04/04/2022 US, obstetric, follow-up [facility] [address], [place], [address], 04/06/2022 23:43:16 04/04/2022 non-stress test [facility] [place] [address] [address], [place], [address], 04/04/2022 16:41:20 04/04/2022 US, obstetric, biophysical profile + non-stress test completed [facility] [place] [address] [address], [place], [address], 04/04/2022 17:27:54 04/10/2022 US, obstetric, follow-up completed [address], [place], [address], 04/18/2022 00:13:11 04/10/2022 US, obstetric, follow-up completed [address], [place], [address], 04/10/2022 21:48:57 04/18/2022 non-stress test [facility] [address], [place], [address], 04/18/2022 14:44:39 04/18/2022 US, obstetric, biophysical profile + non-stress test completed [email or web address] Libby [address], [place], [address], 04/18/2022 15:17:06 04/18/2022 US, obstetric, biophysical profile + non-stress test completed [email or web address] Syl[address], [place], [address], 03/17/2023 11:09:01 Procedure Notes None recorded. Medical Equipment None Reported. Allergies No known drug allergies Medications Name Sig Start Date Stop Date Status Note LastModified by Organization Details LastModified Time cyclobenz aprine 10 mg tablet TAKE 1 TABLET BY MOUTH TWICE DAILY NEEDED active Not Available Not Available No t Available azithromy quoc 250 mg tablet 04/15 completed Not Available Not Available Not Available fluconazo le 150 mg tablet TAKE 1 TABLET BY MOUTH NOW. REPEAT IN 7 DAYS active Not Available Not Available No t Available ondansetr on HCl 8 mg tablet Take 1 tablet every 8 hours by oral route for 2 days. 07/17 completed Not Available Not Available Not Available prednison e 20 mg tablet TAKE 3 TABLETS BY MOUTH EVERY DAY FOR 5 DAYS 04/15 completed Not Available Not Available Not Available ceftriaxo ne 250 mg solution for injection inject (125MG) by intramus cular route as a single dose 08/10 completed Prescrib ed Elsewher e: No Locat ion: Rosana mark [facility] M odify By: romeo Mark ncounter DateTime : 06/13/20 12:26:55 PM Not Available Not Available Not Available penicilli n V potassium 500 mg tablet TAKE 1 TABLET BY MOUTH FOUR TIMES DAILY FOR 10 DAYS 10/02 completed Not Available Not Available Not Available tramadol 50 mg tablet TAKE 1 TABLET BY MOUTH EVERY 8 HOURS NEEDED 10/02 completed Not Available Not Available Not Available amoxicill in 500 mg tablet TAKE 1 TABLET BY MOUTH TWICE DAILY WITH FOOD 04/15 completed Not Available Not Available Not Available methocarb ambreen 750 mg tablet TAKE 2 TABLETS BY MOUTH THREE TIMES DAILY 10/02 completed Not Available Not Available Not Available nifedipin e ER 60 mg tablet,ex tended release 24 hr TAKE 1 TABLET BY MOUTH DAILY. 07/21 completed Not Available Not Available Not Available Flagyl 500 mg tablet take 1 tablet by oral route every 12 hours 11/05 completed Prescrib ed Elsewher e: No Locat ion: [facility] odify By: [email or web address] ich Enco unter DateTime : 10/31/19 08:25:28 AM Not Available Not Available Not Available benzonata te 100 mg capsule 04/15 completed Not Available Not Available Not Available promethaz ine 25 mg tablet 01/31 completed Not Available Not Available Not Available albuterol sulfate HFA 90 mcg/actua tion aerosol inhaler INHALE 2 PUFFS BY MOUTH EVERY 4 HOURS NEEDED 10/03 completed Not Available Not Available Not Available naproxen 500 mg tablet TAKE 1 TABLET BY MOUTH TWICE DAILY WITH FOOD 10/02 completed Not Available Not Available Not Available azithromy quoc 500 mg tablet take 2 tablet by oral route once 08/10 completed Prescrib ed Elsewher e: No Locat ion: [facility] odify By: romeo pollardunter DateTime : 06/13/20 12:26:55 PM Not Available Not Available Not Available cyclobenz aprine 5 mg tablet TAKE 1 TABLET BY MOUTH THREE TIMES DAILY 04/15 completed Not Available Not Available Not Available nitrofura ntoin monohydra te/macroc rystals 100 mg capsule TAKE 1 CAPSULE BY MOUTH EVERY 12 HOURS 12/09 completed Not Available Not Available Not Available 04/15 completed Not Available Not Available Not Available OneTouch Verio test strips 07/17 completed Not Available Not Available Not Available OneTouch Verio Flex Meter 07/17 completed Not Available Not Available Not Available OneTouch Delica Plus Lancet 30 gauge 07/17 completed Not Available Not Available Not Available COVID-19 test specimen collectio n TEST DIRECTED 10/02 completed Not Available Not Available Not Available Vitals Date Recorded Body height Body mass index (BMI) Body mass index (BMI) Percentile per age and sex Systolic blood pressure Diastolic blood pressure Provider Name and Address Organization Details Last Updated DateTime 04/25/2022 165.1 cm 21 kg/m2 40 % 124 mm[Hg] 84 mm[Hg] Elenita Moyer [facility] 2 16:20:19 Date Recorded Body weight Provider Name an d Address Organization Details Last Updated DateTime 04/25/2022 00240.49485 g Sherine Arreguin [facility] 05/19/2022 14:17:15 Date Recorded Body height Body mass index (BMI) Percentile per age and sex Body mass index (BMI) Body weight Systolic blood pressure Diastolic blood pressure Systolic blood pressure Diastolic blood pressure Provider Name and Address Organization Details Last Updated DateTime 2 165.1 cm 40 % 21 kg/m2 93407.6 4 g 158 mm[Hg] 90 mm[Hg] 148 mm[Hg] 72 mm[Hg] Michelle Ch [facility] 2 16:47:53 Date Recorded Systolic blood pressure Diastolic blood pressure Provider Name and Address Organization Details Last Updated DateTime 06/09/2022 126 mm[Hg] 78 mm[Hg] Karen Kenyon MD [address], [place], [address], [facility] 06/09/2022 17:39:47 Date Recorded Body height Body mass index (BMI) Percentile per age and sex Body mass index (BMI) Body weight Systolic blood pressure Diastolic blood pressure Provider Name and Address Organization Details Last Updated DateTime 2 165.1 cm 31 % 20.3 kg/m2 25485.2 7 g 122 mm[Hg] 62 mm[Hg] Michelle Ch [facility] 2 15:57:27 Date Recorded Body height Body mass index (BMI) Body mass index (BMI) Percentile per age and sex Body weight Systolic blood pressure Diastolic blood pressure Provider Name and Address Organization Details Last Updated DateTime 2 165.1 cm 19.6 kg/m2 22 % 29255.9 g 135 mm[Hg] 81 mm[Hg] Michelle Ch [facility] 17:15:37 Date Recorded Body height Systolic blood pressure Diastolic blood pressure Provider Name and Address Organization Details Last Updated DateTime 01/15/2023 165.1 cm 126 mm[Hg] 83 mm[Hg] Brenna Shields [facility] 01/15/2023 16:32:41 Social History Question Answer Notes LastModified by Organizat ion Details LastModified Time Tobacco Smoking Status Current Every Day Smoker Bushra Singleton viviane, [facility] 06/09/2022 16:43:31 Do You Have An Advance Directive? No Information not available 05/29/2021 What Is Your Level Of Alcohol Consumption? Occasional Information not available 05/29/2021 Are You Blind Or Do You Have Difficulty Seeing? No Information not available 05/29/2021 What Is Your Level Of Caffeine Consumption? Occasional Information not available 05/29/2021 How Much Tobacco Do You Chew? None Information not available 05/29/2021 In The 14 Days Before Symptom Onset, Have You Had Close Contact With A Laboratory-confir med COVID-19 While That Case Was Ill? No Information not available 05/29/2021 In The 14 Days Before Symptom Onset, Have You Had Close Contact With A Person Who Is Under Investigation For COVID-19 While That Person Was Ill? No Information not available 05/29/2021 Have You Been To An Area Known To Be High Risk For COVID-19? No Information not available 05/29/2021 Are You Deaf Or Do You Have Serious Difficulty Hearing? No Information not available 05/29/2021 What Type Of Diet Are You Following? REGULAR [email or web address] Information not available 01/03/2022 Which Illicit Or Recreational Drugs Have You Used? Marijuana [email or web address] Information not available 06/09/2022 Do You Or Have You Ever Used E-cigarettes Or Vape? Current User Of Electronic Cigarettes [email or web address] Information not available 06/09/2022 What Is The Highest Grade Or Level Of School You Have Completed Or The Highest Degree You Have Received? 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 No Information not available 05/29/2021 What Was The Date Of Your Most Recent Tobacco Screening? 04/25/2022 [email or web address] Information not available 06/09/2022 Do You Use Protection During Sex? No Information not available 05/29/2021 Do You Use Your Seat Belt Or Car Seat Routinely? Yes Information not available 05/29/2021 Do You Have Smoke And Carbon Monoxide Detectors In Your Home? Yes Information not available 05/29/2021 Do You Or Have You Ever Used Smokeless Tobacco? Never Used Smokeless Tobacco Information not available 06/09/2022 How Much Tobacco Do You Smoke? No Information not available 05/29/2021 Do You Feel Stressed (tense, Restless, Nervous, Or Anxious, Or Unable To Sleep At Night)? [id number] Information not available 05/29/2021 Do You Use Any Illicit Or Recreational Drugs? No Information not available 05/29/2021 Do You Use Sunscreen Routinely? Yes Information not available 05/29/2021 Have You Used IV Drugs? No Information not available 05/29/2021 Sex: Unknown Functional Status Question Answer Note LastModified by Organizat ion Details LastModified Time Do you have difficulty walking or climbing stairs? No [email or web address] Information not available 06/09/2022 Are you able to walk? YESWOREST Information not available 05/29/2021 Are you able to care for yourself? Yes Information not available 06/09/2022 Do you have difficulty dressing or bathing? No [email or web address] Information not available 06/09/2022 What is your exercise level? Occasional [email or web address] Information not available 12/20/2019 Mental Status None recorded. Family History Relationship Description Onset Age of this Age Resolved Age Notes LastModified by Organization Details LastModified Time Mother Anemia Not available 05/21/2021 09:39:48 Mother History of malignant neoplasm of cervix [email or web address] Not available 2021 16:43:30 Mother Family history of blood coagulation disorder [email or web address] Not available 2021 16:43:30 Mother Hypertensive disorder [email or web address] Not available 2019 17:53:51 Mother Hyperlipidem ia [email or web address] Not available 2021 16:43:30 Mother Multiple sclerosis [email or web address] Not available 2019 17:54:52 Father Hypertensive disorder [email or web address] Not available 2019 17:55:04 Maternal Grandmother Asthma Not available 05/08 09:39:48 Maternal Grandmother Congenital prolapsed uterus Prolap sed uterus [email or web address] Not available 06/09/2022 16:43:30 Paternal Grandmother Congenital heart disease [email or web address] Not available 2021 16:43:30 Paternal Grandmother Family history of malignant neoplasm of lung [email or web address] Not available 2021 16:43:30 Maternal Grandfather Congenital heart disease Not available 2021 16:43:30 Maternal Grandfather Hypertensive disorder jgumber Not available 2019 17:57:21 Maternal Grandfather Hyperlipidem ia [email or web address] Not available 2021 16:43:30 Maternal Grandfather Diabetes mellitus [email or web address] Not available 2019 17:57:57 Maternal Grandfather Family history of breast cancer [email or web address] Not available 2021 16:43:30 Maternal Aunt Hypertensive disorder jgumber Not available 2019 17:57:09 Maternal Aunt Congenital prolapsed uterus [email or web address] Not available 2021 16:43:30 Maternal Aunt Hyperlipidem ia [email or web address] Not available 2021 16:43:30 Maternal Aunt Diabetes mellitus jgumber Not available 2019 17:59:33 Maternal Aunt Family history of breast cancer [email or web address] Not available 2021 16:43:30 Sister Anemia Not available 05/21/2021 09:39:48 Maternal Uncle Family history of breast cancer [email or web address] Not available 2021 16:43:30 Maternal Uncle Family history of malignant neoplasm of lung [email or web address] Not available 2021 16:43:30 Medical History Condition Response Allergies (Food, seasonal, environmental ) N Other Y Breast Cancer N Drug/Latex Allergies/Reactions N Blood Transfusion N Dermatologic Disorders N Lung Disease N Defects or Inherited Disease N Breast Problem N Gestational Diabetes Y Hematologic disorders N Anesthesia Complications N History of STI N Deep Vein Thrombosis N Polycystic ovary syndrome N Anxiety Disorder N Autoimmune disease N Arthritis N Infertility N Polyps N Acid Reflux (GERD) N History of abnormal pap N Cancer N Stroke N Varicosities N Neurologic/Epilepsy N Endometriosis N High Cholesterol N Headaches N Fibromyalgia N Kidney Disease N Heart Problems N Kidney or Bladder Problems N Thyroid Problems N GI Problems N Eating Disorder N Anemia N Art (IVF or FET) N Psychiatric Illness N Ovarian Cancer N Diabetes Y Pulmonary (TB, Asthma) N Hepatitis/Liver Disease N Eczema N Urinary Tract Infection N Abuse/Domestic Violence N Asthma N Trauma/Violence N Depression/ depression N Heart Disease N Pre-Eclampsia Y Hypertension Y Osteoporosis N Thrombophilias N Gynecological History Statement/Question Response Flow Moderate Date of LMP 12/23/2022 On BCP's at Conception? N N Was last menstrual period normal Y STIs/STDs N HPV Vaccine N Duration of Flow (days) 6 Current Control Method None Are cycles usually normal Y Sexually Active? Y Menses Monthly Y Date of Last Pap Smear Sexual Problems? Y LMP Approximate N Obstetrics History GPAL:G 3 P 0 2 1 2 Type Value Spontaneous 1 Premature 2 Living 2 Total 3 Past Encounters Encounter ID Performer Location Encounter Start Date Encounter Closed Date Diagnosis/Indication Diagnosis SNOMED-CT Code Diagnosis ICD10 Code Diagnosis Note [id number] Kathy Grover [facility] [address] [address] 12/20/2019 14:54:00 12/21/2019 14:55:38 test positive 926079004 Z32.01 [id number] Stephanie Le [facility] [address] [address] 01/10/2020 10:29:11 01/10/2020 11:41:18 screening 338516396 Z36.82 Z36.0 Z36.89 [id number] [address] [facility] [address],[place] [address] 01/10/2020 10:29:56 01/10/2020 12:03:29 Normal 43923718 Z34.91 [id number] Ziyad Gilbert MD [facility] [address],[place] [address] 02/07/2020 13:58:06 02/07/2020 21:22:25 screening 159311745 Z36.82 Z36.0 Z36.89 [id number] [facility] [address],[place] [address] 02/07/2020 13:58:59 02/07/2020 16:21:27 [id number] [facility] [address],[place] [address] 02/21/2020 15:02:06 02/21/2020 16:52:02 Dizziness 299794627 R42 Likely due to low blood pressure, most likely from dehydratio n. Could have been hypoglycem ia as well. I advised her to drink lots of water and non-caffei nated beverages and eat frequent small meals or snacks. Avoid sudden positional changes. Bleeding from nose 30622 6005 R04.0 Check platelet count [id number] Stephanie Le [facility] [address],[place] [address] 03/06/2020 14:52:53 03/06/2020 16:27:16 screening for malformation 099708567 Z36.3 [id number] Ziyad Gilbert MD [facility] [address],[place] [address] 03/09/2020 11:04:50 03/09/2020 12:43:22 Nausea and vomiting 00753940 R11.2 Low back pain 698704989 M54.5 Routine an tenatal care 276250618 Z34.92 [id number] [facility] [address],[place] [address] 04/03/2020 16:29:02 04/03/2020 17:06:41 screening [id number] Z36.2 [id number] BLAZE DuranM [facility] [address],[place] [address] 04/03/2020 16:29:25 04/03/2020 17:37:00 Routine care 574353166 Z34.92 [id number] [facility] [address],[place] [address] 05/03/2020 11:32:25 05/03/2020 12:15:03 condition affecting obstetrical care of mother 433584428 O35.8XX0 Z3A.28 [id number] Chinyere Chaparro [facility] [address],[place] [address] 05/03/2020 11:33:32 05/06/2020 12:38:28 Routine care 753122527 Z34.92 [id number] [facility] [address],[place] [address] 05/17/2020 16:53:30 05/17/2020 17:58:01 Polyhydramnios 04374865 O40.3XX0 Z3A.30 [id number] Ziyad Gilbert MD [facility] [address],[place] [address] 05/18/2020 13:53:20 05/18/2020 14:44:04 Routine care 976099476 Z34.92 [id number] [facility] [address],[place] [address] 05/31/2020 12:30:59 05/31/2020 13:53:51 [id number] [facility] [address],[place] [address] 05/31/2020 13:58:01 05/31/2020 15:13:25 Gestational diabetes mellitus 87068218 O24.410 O35.8XX0 O16.3 O40.3XX0 Z3A.32 [id number] [facility] [address],[place] [address] 06/04/2020 16:05:16 06/07/2020 14:40:00 Routine care [id number] Z34.93 [id number] Sherine Vasquez [facility] [address],[place] [address] 06/04/2020 16:05:31 06/04/2020 16:54:09 Gestational diabetes mellitus class A1 14423943 O24.410 [id number] Joy Newberry [facility] [address],[place] [address] 06/04/2020 16:57:58 06/04/2020 17:57:34 Gestational diabetes mellitus 62235263 O24.410 O35.8XX0 O16.3 O40.3XX0 Z3A.32 Pt here for diet teaching as she has GDM. Went over pts current diet and what she should work on adjusting and went over nutrition label and how to count carbs and recommende d carbs for each meal/snack . Diet teaching informatio n packet given to pt and instructed to keep checking BS QID and to bring in to each appt. Pts questions were answered and pt verbalized understand ing. ANA fuentes [id number] [facility] [address],[place] [address] 06/07/2020 16:03:08 06/07/2020 17:01:59 Polyhydramnios 08498553 O40.3XX0 Z3A.33 [id number] Ziyad Gilbert MD [facility] [address],[place] [address] 06/07/2020 16:03:41 06/11/2020 11:16:31 Gestational diabetes mellitus class A1 58611197 O24.410 [id number] [facility] [address],[place] [address] 06/22/2020 09:35:00 06/22/2020 10:39:13 -induced hypertension 42267642 O13.9 Contracept ion care management 547475288 Z30.9 [id number] [facility] [address],[place] [address] 07/17/2020 12:24:04 07/17/2020 17:11:54 state 63052920 Z39.2 [id number] Ziyad Gilbert MD [facility] [address],[place] [address] 04/17/2021 16:59:18 04/18/2021 16:23:51 Abnormal uterine bleeding 5705639196 9100 N93.9 Urinary symptoms 3028562 08 R39.9 [id number] [facility] [address],[place] [address] 05/21/2021 09:39:38 05/21/2021 10:39:24 Abnormal uterine bleeding 6073585533 9100 N93.9 R10.2 [id number] Ziyad Gilbert MD [facility] [address],[place] [address] 05/29/2021 16:04:21 05/29/2021 17:57:32 Dyspareunia 84986802 N94.10 this patient is a 20-year-ol d female who presents for follow-up on dyspareuni a and pelvic ultrasound . Pelvic ultrasound was normal. she was recently treated for urinary tract infection and her symptoms improved. But, her pain with intercours e continues and she is interested in treatment. We discussed her ultrasound results. She understand s the ultrasound is normal. We agreed to oral contracept carolyn pills. We did talk about various methods for treating a pelvic pain and dyspareuni a hormone we. She will follow-up in 2 months. She is given 2 packs of pills. She is given detailed instructio ns on oral contracept carolyn pills usage and precaution s. She will follow-up in 2 months. [id number] [facility] [address],[place] [address] 09/26/2021 16:20:35 09/26/2021 16:56:17 Threatened miscarriage 21553282 O20.0 Z3A.01 [id number] Kathy Beltránstevengarcia [facility] [address],[place] [address] 10/03/2021 13:53:09 10/03/2021 14:57:48 test positive 605195857 Z32.01 Risk factors addressed: Tobacco Cessation, Safe Sexual Practices, environmen katina, work hazards, travel restrictio ns, seat belt use.Eat a health well balanced diet, avoid alcohol, tobacco, and street drugs.Enga ge in daily low impact exercise, avoid temperatur e extremes, and cat, rodent, and bird feces.Avoi d travel to areas where zika virus is a concern.Of fered cf/sma/nip t. Desires testing. Handouts given and discussed with patient.Ch ildbirth classes recommende d.New OB sheet given.If previous , counseling . Encouraged to start baby aspirin. Will check baseline pih labs with new ob. Encouraged flu and covid vaccines. Explained recommenda tions. Early gdm screening. Pt verbalizes that she understand s the importance of above instructio ns.All questions were answered.P atient reminded to have annual well woman examinatio n and address [facility] . [id number] [facility] [address],[place] [address] 10/03/2021 13:52:15 10/03/2021 14:43:14 [id number] [facility] [address],[place] [address] 11/04/2021 15:25:00 11/04/2021 16:14:43 screening 934844633 Z36.82 [id number] Karen Kenyon MD [facility] [address],[place] [address] 11/04/2021 15:25:31 11/04/2021 19:01:17 Routine care 423269852 Z34.90 Past pregn jn history of gestational diabetes mellitus 900124943 Z86.32 Past pregn jn history of severe pre-eclampsia 242835975 Z87.59 [id number] Ziyad Gilbert MD [facility] [address] [place] [address] 12/09/2021 13:25:04 12/09/2021 14:15:18 Routine care 452751559 Z34.92 Vaginitis 95611881 N76.0 [id number] [facility] [address],[place] [address] 01/03/2022 11:24:39 01/03/2022 12:47:49 Routine care 034736900 Z34.92 [id number] Nesha Milton [facility] [address],[place] [address] 01/03/2022 11:24:13 01/03/2022 12:34:23 screening 544779138 Z36.3 [id number] Karen Kenyon MD [facility] [address],[place] [address] 01/31/2022 14:04:26 01/31/2022 14:49:06 Routine care 691820113 Z34.90 Past pregn jn history of severe pre-eclampsia 985638894 Z87.59 Past pregn jn history of gestational diabetes mellitus 472615626 Z86.32 [id number] Karen Kenyon MD [facility] [address],[place] [address] 02/28/2022 11:57:21 02/28/2022 12:31:58 Past history of gestational diabetes mellitus 100721906 Z86.32 Past pregn jn history of severe pre-eclampsia 471116775 Z87.59 [id number] Chinyere Chaparro CNM [facility] [address] [place] [address] 03/14/2022 11:21:17 03/14/2022 12:27:05 Routine care 355122652 Z34.92 [id number] Nesha Milton [facility] [address] [place] [address] 03/28/2022 11:30:09 03/28/2022 12:11:18 Past history of gestational diabetes mellitus 682872422 Z86.32 Z87.59 Z3A.32 [id number] Joy Newberry [facility] [address] [place] [address] 03/28/2022 11:31:31 03/28/2022 12:45:44 Past history of pre-eclampsia 8150112725 76905 Z87.59 [id number] Chinyere Chaparro CNM [facility] [address],[place] [address] 03/28/2022 11:31:54 03/28/2022 12:45:54 Routine care 430279182 Z34.92 [id number] [facility] [address],[place] [address] 04/04/2022 15:46:58 04/04/2022 17:08:55 Past history of gestational diabetes mellitus 563170302 Z86.32 Z87.59 Z3A.33 [id number] [facility] [address],[place] [address] 04/04/2022 15:47:45 04/04/2022 16:43:35 Gestational diabetes mellitus class A1 38028313 O24.410 [id number] Ziyad Gilbert MD [facility] [address],[place] [address] 04/04/2022 15:49:36 04/04/2022 17:01:59 Routine care 248982738 Z34.92 [id number] [facility] [address],[place] [address] 04/18/2022 14:02:57 04/18/2022 14:57:24 Past history of pre-eclampsia 3983541285 09001 Z87.59 [id number] [facility] [address],[place] [address] 04/18/2022 14:03:43 04/18/2022 15:28:15 Past history of gestational diabetes mellitus 420602614 Z86.32 O99.891 Z87.59 Z3A.35 [id number] Karen Kenyon MD [facility] [address],[place] [address] 04/18/2022 14:04:09 04/18/2022 15:55:55 Past history of severe pre-eclampsia 872385977 Z87.59 - induced hypertension 46903058 O13.9 [id number] Chinyere Chaparro [facility] [address],[place] [address] 04/25/2022 16:10:02 04/25/2022 16:34:01 Pre-eclampsia 386194309 O14.04 pt delivered HTN resolved, precaution s reviewed f/u 3 week pp visit [id number] Karen Kenyon MD [facility] [address],[place] [address] 06/09/2022 16:43:14 06/10/2022 13:02:51 care 985076584 Z39.2 Past pregn jn history of severe pre-eclampsia 559031976 Z87.59 [id number] Karen Kenyon MD [facility] [address],[place] [address] 07/21/2022 15:50:47 07/24/2022 12:47:43 Irregular periods 20804323 N92.6 Secondary amenorrhea 156 564108 N91.1 Pelvic floor tension 709 106643 R29.898 [id number] Karen Kenyon MD [facility] [address],[place] [address] 08/12/2022 17:10:07 08/13/2022 15:18:47 Gynecologic examination 61253665 Z01.419 Surveillan ce of oral contraception 617831157 Z30.41 Venereal d isease screening 070533933 Z11.3 [id number] ALL Gunn [facility] [address],[place] [address] 01/15/2023 16:12:01 01/15/2023 17:39:26 Vaginitis 10426511 N76.0 suspect yeastvagin itis panel sentSTI endocervic al testing sentvulvar care guidelines discussedr x sent, R/B/A discussed Venereal d isease screening 046422204 Z11.3 Dyspareunia 00202942 N94 .10 recommende d PFPT, she will considerwi ll update TVUS Time spent in visit is a total of 20 mins with at least 50% of visit consisting of counseling and review of plan of care. Health Concerns Section Related Observation LastModified by Organization Detai ls LastModified Time None Recorded Concern Status LastModified by Organization Details LastModified Time None Recorded Advance Directives Directive N: Payers Encounter Date Sequence Insurance Name Policy Number Policy Walls Covered Member ID Walls Member ID Guarantor Name 04/25/2022 1 [facility] (MEDICAID HMO) [id number] Afshan Thebeau [id number] Afshan Thebeau 06/09/2022 1 [facility] (MEDICAID HMO) [id number] Afshan Thebeau [id number] Afshan Thebeau 07/21/2022 1 [facility] (MEDICAID HMO) [id number] Afshan Thebeau [id number] Afshan Thebeau 08/12/2022 1 [facility] (MEDICAID HMO) [id number] Afshan Thebeau [id number] Afshan Thebeau 01/15/2023 1 [facility] (MEDICAID HMO) [id number] Afshan Thebeau [id number] Afshan Thebeau Notes Date Note Type Note Provider Name and Address Organization Details Recorded Time 04/25/2022 text/html delivered for preeclampsia, was not put on meds post delivery, doing well, declines matthew, visual changes, epigastric pain, bp wnl Chinyere Chaparro CNM [address], [place], [address], [facility] 04/25/2022 16:26:24 06/09/2022 text/html Patient is a 21yo presenting for a 4 week visit. She had a on 04/19 at 35 weeks GA. Baby Vaughn was 6-10. severe PreE. off all BP meds after delivery. Denies MATTHEW/BV/EP. Rushing to get here after dropping baby off. Repeat BP improved. Doing well overall. bottlefeeding. Normal lochia. Pain- none. Bowel and bladder function normal. [place] score 0Period-noAnnual due: nowConcerns: none Karen Kenyon MD [address], [place], [address], [facility] 06/10/2022 09:44:15 07/21/2022 text/html Afshan is a G3P 0212 who delivered 3 mos ago and has not had a perio yet. Usually has very regular periods. No breast feeding. Also complains of sex being painful, pressure and sharp pain. Was also happening without sex spontaneous sharp pain, but now hasn't happened in 3-4 days. Using condoms. Denies urinary sx or constipation. Karen Kenyon MD [address], [place], [address], [facility] 07/28/2022 08:12:47 08/12/2022 text/html Patient is a 21y o who presents for an annual exam. Seen 3w ago for no period yet at 3mos pp, got her period a couple days later. started some leftover OCPs she had then. flexeril is helping her pelvic pain- it is less frequent also. last WWE-none sexually active-y HPV vaccine-y contraception-ocp seatbelts-y exercise-y depression-denies domestic violence-denies tobacco-n concerns- Karen Kenyon MD [address], [place], [address], [facility] 08/12/2022 18:00:20 01/15/2023 text/html 22yopresents for evaluation of vaginal d/c and itchingsymptoms started 1 week ago, clump d/coften gets yeast infectionspain with IC for the past 1 year, symptoms resolve shortly after IC is overno new partnersneg vaginal odorneg n/v/fneg urinary symptomsnormal bowel movementscondoms for BC - stopped OCPnot ALL Gunn [address], [place], [address], [facility] 01/15/2023 17:26:19 OBGyn Episode Ob Episode Information Episode Created Date Number of Fetuses Patient Bloodtype Patient rh Status Prepregnancy Weight lbs Domestic Partner Domestic Partner Phone Father Name Order Entry Clerk Status 01/10/20 20 1 O Positive 130 CLOSED Fetus Data First Name Last Name Admitted to NICU Weight (g) Sex Living Outcome Pediatric Complications Fetus ID Race Codes Race Delivery Type 2182.91 15 M true Prematur e 1146 Vaginal Delivery Problems Problem Notes LVEIF notedx2 Problem Name Start Date End Date Resolution Snomed Code Not e Nausea and vomiting 85935542 Back pain complicating 39222578 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 06/07 LT - 7.1mm Gestational diabetes mellitus 01708461 Needs diet teac damaris byron Hypertensive disorder 52146359 Gestational hypertension Ahsan Calculation Initial Ahsan Date Initial Exam Date Initial Exam Provider Initial Ultrasound Date Last Menstrual Period Date Ultra Sound Weeks Gestation 07/20/2020 01/10/2020 01/10/2020 10/14/2019 11 Eighteen To Twenty Week Ahsan Update Ultra Sound Date Fundal Height At Umbil Quickening Date Ultra Sound Latest Weeks Gestation Final Ahsan Confirmed By Final Ahsan Confirmed Date Final Ahsan Date Ultra Sound Latest Days Gestation 0 [email or web address] 01/10/2020 07/20/20 20 0 Pre-solitario Flowsheet Flowsheet Date 01/10/2020 Maynard Score Blood Edema Fundus Height Fundus Units Glucose Ketones Leukocytes Nitrite Labor Signs Protein Cervic Dilation Cervic Effacement Cervic Station Type Weight in lbs Pre/Post Dialysis Refused BP Diastolic BP Location Tested BP Systolic BP Type Fetus Heart Rate Present Fetus Movement Comments Flowsheet Date 01/10/2020 Maynard Score Blood Edema Fundus Height Fundus Units Glucose Ketones Leukocytes Nitrite Labor Signs Protein Cervic Dilation Cervic Effacement Cervic Station none 12 wks Type Weight in lbs Pre/Post Dialysis Refused Weight 132.313243447554 BP Diastolic BP Location Tested BP Systolic BP Type 74 123 Fetus Heart Rate Present A 160 Fetus Movement A No Comments at 12+4 (EDC 07/20) by sure LMP=today's U/S. She c/o N/V but significantly improving. She is smoking MJ and vaping and was advised to quit both! Flowsheet Date 02/07/2020 Maynard Score Blood Edema Fundus Height Fundus Units Glucose Ketones Leukocytes Nitrite Labor Signs Protein Cervic Dilation Cervic Effacement Cervic Station Type Weight in lbs Pre/Post Dialysis Refused BP Diastolic BP Location Tested BP Systolic BP Type Fetus Heart Rate Present Fetus Movement Comments Flowsheet Date 02/07/2020 Maynard Score Blood Edema Fundus Height Fundus Units Glucose Ketones Leukocytes Nitrite Labor Signs Protein Cervic Dilation Cervic Effacement Cervic Station Type Weight in lbs Pre/Post Dialysis Refused Weight 188.939163518712 BP Diastolic BP Location Tested BP Systolic BP Type 77 138 Fetus Heart Rate Present Fetus Movement Comments This patient was not seen by me on this date. Flowsheet Date 02/21/2020 Maynard Score Blood Edema Fundus Height Fundus Units Glucose Ketones Leukocytes Nitrite Labor Signs Protein Cervic Dilation Cervic Effacement Cervic Station Type Weight in lbs Pre/Post Dialysis Refused Weight 135.52049985543 BP Diastolic BP Location Tested BP Systolic BP Type 68 119 Fetus Heart Rate Present Fetus Movement Comments Flowsheet Date 03/06/2020 Maynard Score Blood Edema Fundus Height Fundus Units Glucose Ketones Leukocytes Nitrite Labor Signs Protein Cervic Dilation Cervic Effacement Cervic Station Type Weight in lbs Pre/Post Dialysis Refused BP Diastolic BP Location Tested BP Systolic BP Type Fetus Heart Rate Present Fetus Movement Comments Flowsheet Date 03/09/2020 Maynard Score Blood Edema Fundus Height Fundus Units Glucose Ketones Leukocytes Nitrite Labor Signs Protein Cervic Dilation Cervic Effacement Cervic Station neg none trace Type Weight in lbs Pre/Post Dialysis Refused Weight 138.913035929862 BP Diastolic BP Location Tested BP Systolic BP Type 64 116 Fetus Heart Rate Present A 145 Fetus Movement A Yes Comments patient states that having b ack pain, nausea and vomiting Flowsheet Date 04/03/2020 Maynard Score Blood Edema Fundus Height Fundus Units Glucose Ketones Leukocytes Nitrite Labor Signs Protein Cervic Dilation Cervic Effacement Cervic Station Type Weight in lbs Pre/Post Dialysis Refused BP Diastolic BP Location Tested BP Systolic BP Type Fetus Heart Rate Present Fetus Movement Comments Flowsheet Date 04/03/2020 Maynard Score Blood Edema Fundus Height Fundus Units Glucose Ketones Leukocytes Nitrite Labor Signs Protein Cervic Dilation Cervic Effacement Cervic Station neg trace trace Type Weight in lbs Pre/Post Dialysis Refused Weight 142.124471826407 BP Diastolic BP Location Tested BP Systolic BP Type 67 124 Fetus Heart Rate Present Fetus Movement A Yes Comments PATIENT STATES THAT HAD FELL ON STEPS AND IS STILL HAVING SOME BACK PAIN, BH CONTRACTIONS, SWELLING, NAUSEA AND VOMITING, reviewed ob precautions, f/u anatomy complete ney pyelectalsis rpt 4 weeks Flowsheet Date 05/03/2020 Maynard Score Blood Edema Fundus Height Fundus Units Glucose Ketones Leukocytes Nitrite Labor Signs Protein Cervic Dilation Cervic Effacement Cervic Station Type Weight in lbs Pre/Post Dialysis Refused BP Diastolic BP Location Tested BP Systolic BP Type Fetus Heart Rate Present Fetus Movement Comments Flowsheet Date 05/03/2020 Maynard Score Blood Edema Fundus Height Fundus Units Glucose Ketones Leukocytes Nitrite Labor Signs Protein Cervic Dilation Cervic Effacement Cervic Station neg trace trace Type Weight in lbs Pre/Post Dialysis Refused Weight 147.342023806629 BP Diastolic BP Location Tested BP Systolic BP Type 84 132 Fetus Heart Rate Present Fetus Movement A Yes Comments patient states that having b ack pain, BH contractions, swelling, nausea and vomiting, reviewed precautions EFW 2 lb 11 oz Flowsheet Date 05/17/2020 Maynard Score Blood Edema Fundus Height Fundus Units Glucose Ketones Leukocytes Nitrite Labor Signs Protein Cervic Dilation Cervic Effacement Cervic Station Type Weight in lbs Pre/Post Dialysis Refused BP Diastolic BP Location Tested BP Systolic BP Type Fetus Heart Rate Present Fetus Movement Comments Flowsheet Date 05/18/2020 Maynard Score Blood Edema Fundus Height Fundus Units Glucose Ketones Leukocytes Nitrite Labor Signs Protein Cervic Dilation Cervic Effacement Cervic Station 29 trace Type Weight in lbs Pre/Post Dialysis Refused Weight 146.014361554615 BP Diastolic BP Location Tested BP Systolic BP Type 92 R arm 147 sitting Fetus Heart Rate Present A 145 Fetus Movement A Yes Comments Flowsheet Date 05/31/2020 Maynard Score Blood Edema Fundus Height Fundus Units Glucose Ketones Leukocytes Nitrite Labor Signs Protein Cervic Dilation Cervic Effacement Cervic Station neg trace trace Type Weight in lbs Pre/Post Dialysis Refused Weight 150.188013477619 BP Diastolic BP Location Tested BP Systolic BP Type 90 153 Fetus Heart Rate Present Fetus Movement A Yes Comments Elevated bp today. Pt c/o fe eling warm/flushed without fever on occasion. Occasional headaches, no v/d or e/p. Will send to L&D for PIH evaluation. PIH precautions given. Pt had checked bs from the 13-15 and did have some elevations but stopped checking her sugars because she just did not like doing it. At this time I would like to go ahead and schedule diet teaching and testing. Discussed importance of glucose testing. Flowsheet Date 05/31/2020 Maynard Score Blood Edema Fundus Height Fundus Units Glucose Ketones Leukocytes Nitrite Labor Signs Protein Cervic Dilation Cervic Effacement Cervic Station Type Weight in lbs Pre/Post Dialysis Refused BP Diastolic BP Location Tested BP Systolic BP Type Fetus Heart Rate Present Fetus Movement Comments Flowsheet Date 06/04/2020 Maynard Score Blood Edema Fundus Height Fundus Units Glucose Ketones Leukocytes Nitrite Labor Signs Protein Cervic Dilation Cervic Effacement Cervic Station Type Weight in lbs Pre/Post Dialysis Refused BP Diastolic BP Location Tested BP Systolic BP Type Fetus Heart Rate Present Fetus Movement Comments Flowsheet Date 06/04/2020 Maynard Score Blood Edema Fundus Height Fundus Units Glucose Ketones Leukocytes Nitrite Labor Signs Protein Cervic Dilation Cervic Effacement Cervic Station Type Weight in lbs Pre/Post Dialysis Refused BP Diastolic BP Location Tested BP Systolic BP Type Fetus Heart Rate Present Fetus Movement Comments Flowsheet Date 06/04/2020 Maynard Score Blood Edema Fundus Height Fundus Units Glucose Ketones Leukocytes Nitrite Labor Signs Protein Cervic Dilation Cervic Effacement Cervic Station trace Type Weight in lbs Pre/Post Dialysis Refused Weight 149.027695564233 BP Diastolic BP Location Tested BP Systolic BP Type 92 R arm 148 sitting 113 R arm 155 sitting Fetus Heart Rate Present Fetus Movement A Yes Comments Significantly elevated bp. D enies h/a, v/d, or e/p. Pt sent to L&D for pih evaluation and steriods. Discussed concerns with ghtn vs pre-e. Pt did have diet teaching today for GDM. Will await labs and discuss care further with Dr Gilbert. Flowsheet Date 06/07/2020 Maynard Score Blood Edema Fundus Height Fundus Units Glucose Ketones Leukocytes Nitrite Labor Signs Protein Cervic Dilation Cervic Effacement Cervic Station Type Weight in lbs Pre/Post Dialysis Refused BP Diastolic BP Location Tested BP Systolic BP Type Fetus Heart Rate Present Fetus Movement Comments Flowsheet Date 06/07/2020 Maynard Score Blood Edema Fundus Height Fundus Units Glucose Ketones Leukocytes Nitrite Labor Signs Protein Cervic Dilation Cervic Effacement Cervic Station Type Weight in lbs Pre/Post Dialysis Refused BP Diastolic BP Location Tested BP Systolic BP Type Fetus Heart Rate Present Fetus Movement Comments Flowsheet Date 06/22/2020 Maynard Score Blood Edema Fundus Height Fundus Units Glucose Ketones Leukocytes Nitrite Labor Signs Protein Cervic Dilation Cervic Effacement Cervic Station Type Weight in lbs Pre/Post Dialysis Refused Weight 128.634544402924 BP Diastolic BP Location Tested BP Systolic BP Type 80 138 Fetus Heart Rate Present Fetus Movement Comments Menstrual History Last Menstrual Date Menses Monthly On Bcp Conception Prior Menses Frequency Hcg Plus Date Menarche Onset Age 0210/14/2019 Genetic Screening And Infection History Question Response Note Mental Retardation/Autism false Patient's Age Will Be 35 Yea rs Or Older At Estimated Date of Delivery false Thalassemia (German, Turkish, Mediterranean, Or Background): MCV < 80 false Neural Tube Defect (Meningom yelocele, Spina Bifida, Or Anencephaly) false Congenital Heart Defect false Down Syndrome false Saeid-Sachs (eg, Hoahaoism, Cajun, Cambodian-St Lucian) f alse Sanford Disease false Sickle Cell Disease Or Trait () false Hemophilia Or Other Blood Disorders false Muscular Dystrophy false Cystic Fibrosis false Katia's Chorea false Intellectual Disability/Autism false If Yes, Was Person Tested For Fragile X? false Other Inherited Genetic Or Chromosomal Disorder false Maternal Metabolic Disorder (eg, Type 1 Diabetes , PKU) false Patient Or Baby's Father Had A Child With Defects Not Listed Above false Recurrent Loss, Or A Stillbirth false Medications (including Suppl ements, Vitamins, Herbs, OTC Drugs), Illicit/Recreational Drugs, Alcohol true MJ regular ly If Yes, Agent(s) And Strength/Dosage false Any Other Genetic History false Live With Someone With TB Or Exposed To TB false Patient Or Partner Has History Of Genital Herpes false Rash Or Viral Illness Since Last Menstrual Perio d false History Of STD, Gonorrhea, Chlamydia, HPV, Syphi lis true gonorrhea 2018 Other Infection History false History of HIV false History of Hepatitis false Prior GBS-infected child false Hemoglobinopathy Or Carrier false Other Structural Defect false Recent Travel History Outside of Country false Delivery Information Delivery Date Delivery Type Labor Anesthesia Weeks Gestation Incision Type Labor Labor Length Hrs Delivered By Post Complications Tubal Sterilization Discharge Date Comments 0 34 true [id number] GDM , preeclamp usman Discharge Information Feeding Method Contraceptive Method Maternal HG B and HCT Levels Ob Episode Information Episode Created Date Number of Fetuses Patient Bloodtype Patient rh Status Prepregnancy Weight lbs Domestic Partner Domestic Partner Phone Father Name Order Entry Clerk Status 01/10/20 20 1 CLOSED Fetus Data First Name Last Name Admitted to NICU Weight (g) Sex Living Outcome Pediatric Complications Fetus ID Race Codes Race Delivery Type , Spontane ous [id number] Ahsan Calculation Initial Ahsan Date Initial Exam Date Initial Exam Provider Initial Ultrasound Date Last Menstrual Period Date Ultra Sound Weeks Gestation 0 Eighteen To Twenty Week Ahsan Update Ultra Sound Date Fundal Height At Umbil Quickening Date Ultra Sound Latest Weeks Gestation Final Ahsan Confirmed By Final Ahsan Confirmed Date Final Ahsan Date Ultra Sound Latest Days Gestation 0 0 Menstrual History Last Menstrual Date Menses Monthly On Bcp Conception Prior Menses Frequency Hcg Plus Date Menarche Onset Age Delivery Information Delivery Date Delivery Type Labor Anesthesia Weeks Gestation Incision Type Labor Labor Length Hrs Delivered By Post Complications Tubal Sterilization Discharge Date Comments 9 Discharge Information Feeding Method Contraceptive Method Maternal HG B and HCT Levels Ob Episode Information Episode Created Date Number of Fetuses Patient Bloodtype Patient rh Status Prepregnancy Weight lbs Domestic Partner Domestic Partner Phone Father Name Order Entry Clerk Status 06/15/20 20 1 DELETED Ahsan Calculation Initial Ahsan Date Initial Exam Date Initial Exam Provider Initial Ultrasound Date Last Menstrual Period Date Ultra Sound Weeks Gestation 0 Eighteen To Twenty Week Ahsan Update Ultra Sound Date Fundal Height At Umbil Quickening Date Ultra Sound Latest Weeks Gestation Final Ahsan Confirmed By Final Ahsan Confirmed Date Final Ahsan Date Ultra Sound Latest Days Gestation 0 0 Menstrual History Last Menstrual Date Menses Monthly On Bcp Conception Prior Menses Frequency Hcg Plus Date Menarche Onset Age Delivery Information Delivery Date Delivery Type Labor Anesthesia Weeks Gestation Incision Type Labor Labor Length Hrs Delivered By Post Complications Tubal Sterilization Discharge Date Comments 0 34 true GDM,Pre- e clampsia Discharge Information Feeding Method Contraceptive Method Maternal HG B and HCT Levels Ob Episode Information Episode Created Date Number of Fetuses Patient Bloodtype Patient rh Status Prepregnancy Weight lbs Domestic Partner Domestic Partner Phone Father Name Order Entry Clerk Status 11/04/19 22 1 O Positive 112 CLOSED Fetus Data First Name Last Name Admitted to NICU Weight (g) Sex Living Outcome Pediatric Complications Fetus ID Race Codes Race Delivery Type 2721.55 2 M [place] [id number] Vaginal Delivery Problems Problem Notes declines flu and COVID vacci rashard (has not had covid)NL labs, NIPT NL. 06/08/2020 neg CF/SMA Problem Name Start Date End Date Resolution Snomed Code Not e Past history of severe pre-eclampsia [id number] deli gina at 34w. ASA, baseline labs, testing at 32w Past history of gestational diabetes mellitus [id number] GCT at 20w, 28 if passes Subchorionic hematoma 09/26/2021 [id number] 4.3x1.9x3.3cm Marijuana user [id number] +UDS Ahsan Calculation Initial Ahsan Date Initial Exam Date Initial Exam Provider Initial Ultrasound Date Last Menstrual Period Date Ultra Sound Weeks Gestation 05/23/2022 11/04/2021 10/03/2021 08/03/2021 6 Eighteen To Twenty Week Ahsan Update Ultra Sound Date Fundal Height At Umbil Quickening Date Ultra Sound Latest Weeks Gestation Final Ahsan Confirmed By Final Ahsan Confirmed Date Final Ahsan Date Ultra Sound Latest Days Gestation 0 [email or web address] 11/04/2021 05/23/20 22 0 Pre-solitario Flowsheet Flowsheet Date 11/04/2021 Maynard Score Blood Edema Fundus Height Fundus Units Glucose Ketones Leukocytes Nitrite Labor Signs Protein Cervic Dilation Cervic Effacement Cervic Station Type Weight in lbs Pre/Post Dialysis Refused Weight 114.515611537324 BP Diastolic BP Location Tested BP Systolic BP Type 77 113 Fetus Heart Rate Present A 155 Fetus Movement A No Comments Afshan is a 21yo wh o presents for care. She had a 34 week IOL in 2019 for severe PreE. She will start ASA, will do baseline labs, testing at 32w. She also has ahistory of GDM and will do an early GCT. She declines flu and COVID vaccines. She vapes and uses MJ, trying to quit. Labs and NIPt today. Flowsheet Date 12/09/2021 Maynard Score Blood Edema Fundus Height Fundus Units Glucose Ketones Leukocytes Nitrite Labor Signs Protein Cervic Dilation Cervic Effacement Cervic Station neg none 16 none neg Type Weight in lbs Pre/Post Dialysis Refused Weight 125.414528146239 BP Diastolic BP Location Tested BP Systolic BP Type 66 R arm 116 sitting Fetus Heart Rate Present A 145 Fetus Movement A Yes Comments Patient reports vulvar irrit ation, white vaginal discharge, recently treated with antibiotics. To treat for vaginitis. Flowsheet Date 01/03/2022 Maynard Score Blood Edema Fundus Height Fundus Units Glucose Ketones Leukocytes Nitrite Labor Signs Protein Cervic Dilation Cervic Effacement Cervic Station Type Weight in lbs Pre/Post Dialysis Refused BP Diastolic BP Location Tested BP Systolic BP Type Fetus Heart Rate Present Fetus Movement Comments Flowsheet Date 01/03/2022 Maynard Score Blood Edema Fundus Height Fundus Units Glucose Ketones Leukocytes Nitrite Labor Signs Protein Cervic Dilation Cervic Effacement Cervic Station neg none none trace Type Weight in lbs Pre/Post Dialysis Refused Weight 127.808974538559 BP Diastolic BP Location Tested BP Systolic BP Type 84 135 Fetus Heart Rate Present Fetus Movement A Yes Comments patient is having pain, ches t pain, nausea and vomiting. anatomy complete tx reflux with pepcid, taking asa daily, precautions reviewed. f/u 4 weeks Flowsheet Date 01/31/2022 Maynard Score Blood Edema Fundus Height Fundus Units Glucose Ketones Leukocytes Nitrite Labor Signs Protein Cervic Dilation Cervic Effacement Cervic Station neg none 25 none trace Type Weight in lbs Pre/Post Dialysis Refused Weight 131.480829711623 BP Diastolic BP Location Tested BP Systolic BP Type 77 116 Fetus Heart Rate Present A 150 Fetus Movement A Yes Comments Doing well. Taking ASA. Miss ed early GCT, will do next time. No concerns. Flowsheet Date 02/28/2022 Maynard Score Blood Edema Fundus Height Fundus Units Glucose Ketones Leukocytes Nitrite Labor Signs Protein Cervic Dilation Cervic Effacement Cervic Station neg trace 25 Type Weight in lbs Pre/Post Dialysis Refused Weight 137.238821899535 BP Diastolic BP Location Tested BP Systolic BP Type 78 137 Fetus Heart Rate Present A 160 Fetus Movement A Yes Comments Doing well, great FM. GCT to day. Discussed and encouraged Tdap. Will schedule ante testing at 32w. Flowsheet Date 03/14/2022 Maynard Score Blood Edema Fundus Height Fundus Units Glucose Ketones Leukocytes Nitrite Labor Signs Protein Cervic Dilation Cervic Effacement Cervic Station neg trace none trace Type Weight in lbs Pre/Post Dialysis Refused Weight 135.07511376459 BP Diastolic BP Location Tested BP Systolic BP Type 67 133 Fetus Heart Rate Present Fetus Movement A Yes Comments patient is having some leg p ain, discharge, swelling, nausea and vomiting. declines meds zofran not heping, reviewed precautions starts testing next visit, has plans to get tdap Flowsheet Date 03/28/2022 Maynard Score Blood Edema Fundus Height Fundus Units Glucose Ketones Leukocytes Nitrite Labor Signs Protein Cervic Dilation Cervic Effacement Cervic Station Type Weight in lbs Pre/Post Dialysis Refused BP Diastolic BP Location Tested BP Systolic BP Type Fetus Heart Rate Present Fetus Movement Comments Flowsheet Date 03/28/2022 Maynard Score Blood Edema Fundus Height Fundus Units Glucose Ketones Leukocytes Nitrite Labor Signs Protein Cervic Dilation Cervic Effacement Cervic Station Type Weight in lbs Pre/Post Dialysis Refused BP Diastolic BP Location Tested BP Systolic BP Type Fetus Heart Rate Present Fetus Movement Comments Flowsheet Date 03/28/2022 Maynard Score Blood Edema Fundus Height Fundus Units Glucose Ketones Leukocytes Nitrite Labor Signs Protein Cervic Dilation Cervic Effacement Cervic Station neg trace none trace Type Weight in lbs Pre/Post Dialysis Refused Weight 135.06132119973 BP Diastolic BP Location Tested BP Systolic BP Type 70 130 Fetus Heart Rate Present Fetus Movement A Yes Comments patient is having swelling, nausea and vomiting. nst R efw 57%, taking asa daily, +FM, pih precautions reviewed f/u one week. call for preadmit and tdap at health dept Flowsheet Date 04/04/2022 Maynard Score Blood Edema Fundus Height Fundus Units Glucose Ketones Leukocytes Nitrite Labor Signs Protein Cervic Dilation Cervic Effacement Cervic Station Type Weight in lbs Pre/Post Dialysis Refused BP Diastolic BP Location Tested BP Systolic BP Type Fetus Heart Rate Present Fetus Movement Comments Flowsheet Date 04/04/2022 Maynard Score Blood Edema Fundus Height Fundus Units Glucose Ketones Leukocytes Nitrite Labor Signs Protein Cervic Dilation Cervic Effacement Cervic Station Type Weight in lbs Pre/Post Dialysis Refused BP Diastolic BP Location Tested BP Systolic BP Type Fetus Heart Rate Present Fetus Movement Comments Flowsheet Date 04/04/2022 Maynard Score Blood Edema Fundus Height Fundus Units Glucose Ketones Leukocytes Nitrite Labor Signs Protein Cervic Dilation Cervic Effacement Cervic Station neg trace none trace Type Weight in lbs Pre/Post Dialysis Refused Weight 141.404656956949 BP Diastolic BP Location Tested BP Systolic BP Type 83 130 Fetus Heart Rate Present A 145 Fetus Movement A Yes Comments patient states that having s ome pressure, swelling, nausea and vomiting. Flowsheet Date 04/18/2022 Maynard Score Blood Edema Fundus Height Fundus Units Glucose Ketones Leukocytes Nitrite Labor Signs Protein Cervic Dilation Cervic Effacement Cervic Station Type Weight in lbs Pre/Post Dialysis Refused BP Diastolic BP Location Tested BP Systolic BP Type Fetus Heart Rate Present Fetus Movement Comments Flowsheet Date 04/18/2022 Maynard Score Blood Edema Fundus Height Fundus Units Glucose Ketones Leukocytes Nitrite Labor Signs Protein Cervic Dilation Cervic Effacement Cervic Station Type Weight in lbs Pre/Post Dialysis Refused BP Diastolic BP Location Tested BP Systolic BP Type Fetus Heart Rate Present Fetus Movement Comments Flowsheet Date 04/18/2022 Maynard Score Blood Edema Fundus Height Fundus Units Glucose Ketones Leukocytes Nitrite Labor Signs Protein Cervic Dilation Cervic Effacement Cervic Station neg none 32 trace trace Type Weight in lbs Pre/Post Dialysis Refused Weight 137.180604114547 BP Diastolic BP Location Tested BP Systolic BP Type 89 149 84 142 88 132 Fetus Heart Rate Present A 155 Fetus Movement A Yes Comments Doing ok. Irregular ctx. Was in hospital last week for contractions, got steroids and tocolytics and they stopped. Also started on nifedipine. No PIH labs done. Today BPs mildly elevated, will do PIH labs with h/o PreE. Denies MATTHEW/BV/EP.Addendum: Labs received. PC ratio >.3. LFTs elevated and last week they were normal. Given elevated BPs on high dose of nifidipine and abnormal LFTS, will induce pt for severe PReE. Report called to Arlene. BASSEM for pt to proceed to L and D immediately. WIll continue to call her if she does not show up. Flowsheet Date 04/25/2022 Maynard Score Blood Edema Fundus Height Fundus Units Glucose Ketones Leukocytes Nitrite Labor Signs Protein Cervic Dilation Cervic Effacement Cervic Station Type Weight in lbs Pre/Post Dialysis Refused Weight 126.79603402487 BP Diastolic BP Location Tested BP Systolic BP Type 84 124 Fetus Heart Rate Present Fetus Movement Comments Menstrual History Last Menstrual Date Menses Monthly On Bcp Conception Prior Menses Frequency Hcg Plus Date Menarche Onset Age 1108/03/2021 Genetic Screening And Infection History Question Response Note Mental Retardation/Autism false Patient's Age Will Be 35 Years Or Older At Estim ated Date of Delivery false Thalassemia (German, Turkish, Mediterranean, Or Background): MCV < 80 false Neural Tube Defect (Meningomyelocele, Spina Bifi da, Or Anencephaly) false Congenital Heart Defect false Down Syndrome false Saeid-Sachs (eg, Hoahaoism, Cajun, Cambodian-St [place]ian) f alse Sanford Disease false Sickle Cell Disease Or Trait () false Hemophilia Or Other Blood Disorders false Muscular Dystrophy false Cystic Fibrosis false Katia's Chorea false Intellectual Disability/Autism false If Yes, Was Person Tested For Fragile X? false Other Inherited Genetic Or Chromosomal Disorder false Maternal Metabolic Disorder (eg, Type 1 Diabetes , PKU) false Patient Or Baby's Father Had A Child With Defects Not Listed Above false Recurrent Loss, Or A Stillbirth false Medications (including Suppl ements, Vitamins, Herbs, OTC Drugs), Illicit/Recreational Drugs, Alcohol true If Yes, Agent(s) And Strength/Dosage false Any Other Genetic History false Live With Someone With TB Or Exposed To TB false Patient Or Partner Has History Of Genital Herpes false Rash Or Viral Illness Since Last Menstrual Perio d false History Of STD, Gonorrhea, Chlamydia, HPV, Syphi lis false Other Infection History false History of HIV false History of Hepatitis false Prior GBS-infected child false Hemoglobinopathy Or Carrier false Other Structural Defect false Recent Travel History Outside of Country false Delivery Information Delivery Date Delivery Type Labor Anesthesia Weeks Gestation Incision Type Labor Labor Length Hrs Delivered By Post Complications Tubal Sterilization Discharge Date Comments 2 Induce d Regional-Ep idural 35.1 true Karen Kenyon MD Severe Pre eclampsia , gbs unknown Discharge Information Feeding Method Contraceptive Method Maternal HG B and HCT Levels Bottle
--- NOTE | 2024-10-16 11:16 | ED.DENTAL ---
HPI - Dental/Oral General Chief complaint: Dental/Oral Stated complaint: facial swelling, tooth pain Time Seen by Provider: 10/16/24 11:05 History of Present Illness HPI Narrative: 24-year-old female with past medical history including prior tooth extractions presents to the emergency room today with a broken tooth in the left side upper part of her maxillary teeth for last week. She has been having pain in that area associated with some swelling the left side of her face. Endorses taking Tylenol, ibuprofen and Orajel which mildly alleviates her symptoms but today she had worsening pain and came to the ER. She has been trying to find a dentist in the area that takes her insurance without any success. Denies any nausea, vomiting, difficulty swallowing, shortness of breath, trismus. Does not know how she cracked her tooth. Teeth map:  1. Dental fracture, dental caries 2. Dental caries Related Data Allergies Allergy/AdvReac Type Severity Reaction Status Date / Time No Known Allergies Allergy Verified 10/16/24 10:27 Review of Systems Review of Systems: As reviewed above in HPI ON LICENSE OF [facility] Past Medical History Medical History No active medical problems Social History Social History Smoking status: Current some day smoker Tobacco type: e-cigarettes/vaping Additional smoking assessment comments: patient reports occasional vaping with inconsistant schedule Substance use: former Gender identity (if verbalized by the patient): Female Spiritual care concerns: No Exam Narrative: GENERAL: [Well-appearing, well-nourished, and in no acute distress.] HEAD: [Normocephalic, atraumatic.] EYES: [PERRLA and EOMI.] ENT: Dental fracture noted over the upper maxillary left side and dental caries evident on multiple teeth. No trismus, full range of motion of the jaw, left-sided facial swelling limited to the cheek on the left upper side near the dental fracture area. No overlying skin changes. No posterior oropharyngeal swelling, no pooling secretions, uvula is midline. NECK: Supple. CHEST: [Clear to auscultation. No respiratory distress.] HEART: [Regular rate and rhythm]. No murmur heard. [Normal peripheral pulses.] ABDOMEN: [Soft, nondistended], [nontender], [No rigidity or guarding] EXTREMITIES: Normal range of motion. [No edema.] SKIN: Warm, dry, no rash. NEURO: [No focal deficits]. Alert and oriented [x3.] PSYCH: [Normal mood and affect.] Course Vital Signs Vital signs: Vital Signs Temperature 36.7 C 10/16/24 10:28 Pulse Rate 100 10/16/24 10:28 Respiratory Rate 18 10/16/24 10:28 Blood Pressure 124/87 10/16/24 10:28 Pulse Oximetry 99 10/16/24 10:28 Oxygen Delivery Room Air 10/16/24 10:28 Temperature 36.7 C 10/16/24 10:28 Pulse Rate 100 10/16/24 10:28 Respiratory Rate 18 10/16/24 10:28 Blood Pressure 124/87 10/16/24 10:28 Pulse Oximetry 99 10/16/24 10:28 Oxygen Delivery Room Air 10/16/24 10:28 MDM - Dental/Oral MDM Narrative Medical decision making narrative: 24-year-old female presenting with recent dental trauma now associated with what appears to be active dental caries and worsening tooth pain. She has a fractured tooth in the upper maxillary premolar area. There is pain and swelling over the overlying cheek and skin on that left side but no redness or signs of cellulitis. Extraocular movements are full, no posterior oropharyngeal involvement, no other obvious injuries in the mouth aside from some dental caries and poor dentition at baseline. She is afebrile, normal reassuring vital signs. Patient has tried conservative therapies including Tylenol, ibuprofen and or gel which to alleviate some of her symptoms but now she is having worsening pain. Has not been able find a dentist yet. She was given oxycodone and Augmentin here and we sent home with prescriptions for both. Encouraged to follow-up with a dentist on a short-term basis for definitive management or return if she has any new or worsening concerns. Patient is safe and stable for discharge at this time. Differential Diagnosis Differential diagnosis: Likely gingival abscess, dental caries, toothache, dental abscess, fracture of tooth and aphthous ulcer Medical Records Attestation: I reviewed the patient's medical records. Discharge Plan Discharge Clinical Impression: Dentalgia, Dental caries, Swelling of left side of face Patient Disposition: Home, Self-Care Condition: Stable Instructions: Antibiotic Form, Dental Abscess (ED), Acute Dental Trauma (ED), Toothache (ED) Additional Instructions: We will prescribe you oxycodone and Augmentin for your dental pain and infection. you can continue taking Tylenol and ibuprofen as well as Orajel. Limit Tylenol to under 4 g total per day. Call your local dentist and try to schedule a close follow-up appointment. Return with any new or worsening concerns. Patient Language: Serbian Prescriptions: New amoxicillin-pot clavulanate 875-125 mg tablet 1 tablet PO Q12H 7 Days Qty: 14 0RF oxycodone 5 mg tablet 5 mg PO Q8H PRN (Reason: pain) Qty: 14 0RF Follow-up/Referrals: UNKNOWN,DOCTOR [Primary Care Provider] - Stand Alone Forms: Work/School Release IP Time of Disposition: 11:25
[2024-10-16] MEDS: AMOXICILLIN/CLAVULANATE K 875-125 MG TAB 1 TABLET PO (11:30)
[2024-10-16] MEDS: oxyCODONE HCL (*CRX) 5 MG TAB IR PO (11:30)
== END 2024-10-16 11:40 | disposition home or self-care (01) ==
PROVIDERS: Emergency Provider Student in an Organized Health Care Education/Training Program
DX: K02.9 Dental caries, unspecified (principal); S02.5XXA Fracture of tooth (traumatic), initial encounter for closed fracture; R22.0 Localized swelling, mass and lump, head; F17.290 Nicotine dependence, other tobacco product, uncomplicated; X58.XXXA Exposure to other specified factors, initial encounter
CPT/HCPCS: 99283; A9270

== ENCOUNTER 2024-11-15 14:12 | Emergency (ER) | payer OTHER, SELFPAY ==
[2024-11-15 14:16] VITALS: BP 143/91; PULSE 88; RESP 18; TEMP 36.4; O2SAT 100
--- NOTE | 2024-11-15 15:29 | ED_ITS ---
HPI - Dental/Oral General Chief complaint: Dental/Oral Stated complaint: right wisdom tooth pain Time Seen by Provider: 11/15/24 15:29 Focused HPI: This is a 24 year old female that presents to the ER for dentalgia. Reports she has a dentist appointment in a couple of weeks. Reports she has a wisdom tooth that is bothering her. Reports the pain radiates in her ear. Reports she has been taking Ibuprofen for pain. GENERAL: Well-appearing, well-nourished, and in no acute distress. HEAD: Normocephalic, atraumatic. CHEST: Clear to auscultation. ?No respiratory distress. HEART: Regular rate and rhythm.? NEURO: ?Alert and oriented x3. Patient screened in triage and initial orders placed.? ?Additional care and disposition to be based upon?diagnostic testing and treatment. History of Present Illness HPI Narrative: This is a 24 year old female that presents to the ER for dentalgia. MD Complaint: tooth pain Location: Tooth # (2, 32) Related Data Allergies Allergy/AdvReac Type Severity Reaction Status Date / Time No Known Allergies Allergy Verified 11/15/24 14:13 Review of Systems Review of Systems: CONSTITUTIONAL: Denies fever ENT: Reports dentalgia All systems reviewed & are unremarkable except as noted in HPI and below PMFSH Past Medical History Medical History No active medical problems Social History Social History Smoking status: Current some day smoker Tobacco type: e-cigarettes/vaping Additional smoking assessment comments: patient reports occasional vaping with inconsistant schedule Substance use: former Gender identity (if verbalized by the patient): Female Spiritual care concerns: No Exam Narrative: GENERAL: Well-appearing, well-nourished, and in no acute distress. HEAD: Normocephalic, atraumatic. EYES: EOMI. ENT: Nares clear, no rhinorrhea or epistaxis. Mucous membranes moist. Oropharynx without tonsillar hypertrophy exudate or other lesions. Bilateral TMs pearly olson non-bulging. Teeth #2 and 32 tender to palpation without surrounding edema or erythema NECK: Supple. No adenopathy or masses. CHEST: No respiratory distress HEART: Regular rate EXTREMITIES: Normal range of motion. No edema. SKIN: Warm, dry, no rash. NEURO: No focal deficits. Alert and oriented x3. PSYCH: Normal mood and affect Course Vital Signs Vital signs: Vital Signs Temperature 97.5 F L 11/15/24 14:16 Pulse Rate 88 11/15/24 14:16 Respiratory Rate 18 11/15/24 14:16 Blood Pressure 143/91 H 11/15/24 14:16 Pulse Oximetry 100 11/15/24 14:16 Oxygen Delivery Room Air 11/15/24 14:16 Temperature 97.5 F L 11/15/24 14:16 Pulse Rate 88 11/15/24 14:16 Respiratory Rate 18 11/15/24 14:16 Blood Pressure 143/91 H 11/15/24 14:16 Pulse Oximetry 100 11/15/24 14:16 Oxygen Delivery Room Air 11/15/24 14:16 MDM - Dental/Oral MDM Narrative Medical decision making narrative: Patient presents the emergency department for dentalgia. She is afebrile and nontoxic appearing. No overt abscess on exam. Will be started on oral antibiotics. Instructed on the importance of seeing her dentist. She was given warnings to return to the ER Differential Diagnosis Differential diagnosis: Likely toothache, dental abscess and fracture of tooth Critical Care Time Critical Care Time Critical Care Time: No Discharge Plan Discharge Clinical Impression: Toothache Patient Disposition: Home, Self-Care Condition: Stable Instructions: Antibiotic Form, Toothache (ED) Additional Instructions: Return to the Emergency Department if you experience fever >101, increasing swelling and redness of your tooth, or any other symptoms that are concerning to you Take antibiotic as prescribed. Tylenol or Ibuprofen as needed for pain. Prescribed pain medication as needed Follow up with your dentist Patient Language: Armenian Prescriptions: New hydrocodone-acetaminophen 5-325 mg tablet 1 tablet PO Q8H PRN (Reason: pain) Qty: 14 0RF amoxicillin-pot clavulanate 875-125 mg tablet 1 tablet PO Q12H 10 Days Qty: 20 0RF No Action amoxicillin-pot clavulanate 875-125 mg tablet 1 tablet PO Q12H 7 Days Qty: 14 0RF oxycodone 5 mg tablet 5 mg PO Q8H PRN (Reason: pain) Qty: 14 0RF Follow-up/Referrals: UNKNOWN,DOCTOR [Primary Care Provider] -
--- OUTSIDE RECORDS SUMMARY | 2024-11-15 16:03 | XMS_ITS | Data Portability ---
Author Organization [facility] Address [address] [place] [address] [place] [address] Assessment Encounter Date Assessment Date Assessment LastModified by Organization Details LastModified Time 06/09/2022 06/09/2022 FU for exam Normal exam May resume normal activities contraceptive plan-- OCP. has a few packs left at home, will start with menses. FU for WWE 2 mos. [email or web address] Not available 06/10/2022 09:43:55 07/21/2022 07/21/2022 labs per below if no period in 1 mo, preg test and US hcg neg today declines contraception flexeril for pelvic muscle pain. discussed PT- pt declines for now. [email or web address] Not available 07/28/2022 08:12:22 08/12/2022 08/12/2022 healthy female exam GC/CT/trich done declines further std testing pap at 21 contraception-OC P. will call when needs refills. HPV vaccine done FU 1 year or prn [email or web address] Not available 08/12/2022 18:00:04 Plan of Treatment Reminders Order Date Submit Date Provider Last Modified By Organization Details Last Modified Time Details Appointments None recorded . Lab pregnanc y test, urine 2021 022 [facility], [address], [place], [address], 05:00:50 testoste yari, free + total, serum 2021 022 [facility] (Lab), [address], [place], [address], 21:11:53 dhea-sul fate, serum 2021 [facility] (Lab), [address], [place], [address], 21:11:50 estradio l, serum 2021 [facility] (Lab), [address], [place], [address], 21:11:51 FSH (follicl e-stimul ating hormone) , serum 2021 [facility] (Lab), [address], [place], [address], 21:11:51 HbA1c (hemoglo bin A1c), blood 2021 [facility] (Lab), [address], [place], [address], 21:11:52 prolacti n, serum 2021 [facility] (Lab), [address], [place], [address], 21:11:52 TSH, serum or plasma 2021 [facility] (Lab), [address], [place], [address], 21:11:52 Referral None recorded . Procedures None recorded . Surgeries None recorded . Imaging US, pelvis, complete 2022 023 [facility] [place], [address], [place], [address], 3 14:57:16 Medication Orders fluconaz ole 150 mg tablet [address] [id number], [address], [place], [place], [id number], 16:48:39 francesca zaprine 10 mg tablet 2021 [id number], [address], [place], [place], [id number], 2 16:29:21 Patient TargetsNo targets recorded. Patient InstructionsNo instructions [...] 9-246 > 75 12-15 4 Not Available [facility] (Lab) [address] , [place], [address], 07/25/2022 21:11:50 07/21/20 22 07/21/2022 ESTRA DIOL [...] 561-2 1280 pg/mL 3rd Trime ster8 525-> 41412 pg/mL Not Available [facility] (Lab) [address], [place], [address], 07/25/2022 21:11:51 07/21/20 22 07/21/2022 FSH FSH 6.3 mIU/m L This assay was perfo rmed using [employer] ratio n reage nts and test kits. Value s obtai zion with other assay metho ds or kits canno t be used inter [facility] . Femal es Folli cular : 3.5-1 2.5 mIU/m L Ovula tion: 4.7-2 1.5 mIU/m L Lutea l: 1.7-7 .7 mIU/m L Postm enopa use: 25.8- 134.8 mIU/m L Not Available [facility] (Lab) [address], [place], [address], 07/25/2022 21:11:51 07/21/20 22 07/21/2022 PROLA CTIN prolactin, total 28.80 NG/mL 4.79-2 3.30 high This assay was perfo rmed using [employer] reage nts and test kits. Value s obtai zion with other assay metho ds or kits canno t be used inter [facility] . Not Available [facility] (Lab) [address] [place], [address], 07/25/2022 21:11:52 07/21/20 22 07/21/2022 HEMOG LOBIN [...] >8.0% Actio n sugge sted Not Available [facility] (Lab) [address], [place], [address], 07/25/2022 21:11:52 07/21/20 22 07/21/2022 TSH, REFLE X FREE T4 TSH 0.89 uIU/m L 0.30-5 .33 Not Available [facility] (Lab) [address], [place], [address], 07/25/2022 21:11:52 07/21/20 22 07/21/2022 TESTO STERO NE, FREE, DIREC T WITH TOTAL testosterone , serum 25 NG/dL Not Available [facility] (Lab) [address], [place], [address], 07/25/2022 21:11:53 07/21/20 22 07/21/2022 TESTO STERO NE, FREE, DIREC T WITH TOTAL free testosterone (direct) 0.6 pg/mL 0.0-4. 2 Perfo rmed at: 01 - [facility] [address] [place] [address] Lab Direc tor: Ubaldo morris PhD, Phone : [phone] Perfo rmed at: 02 - [facility] [address] [place] [address] Lab Direc tor: Mildred sofia MD, Phone : [phone] Not Available [facility] (Lab) [address], [place], [address], 07/25/2022 21:11:53 08/12/20 22 08/12/2022 CT/GC AND TRICH OMONA S VAGIN SIMIN (RRNA ), SWAB chlamydia trachomatis, PCR Negati ve negati ve Not Available [facility] (Lab) [address], [place], [address], 08/13/2022 13:41:58 08/12/20 22 08/12/2022 CT/GC AND TRICH OMONA S VAGIN SIMIN (RRNA ), SWAB neisseria gonorrhoeae, PCR Negati ve negati ve Not Available [facility] (Lab) [address], [place], [address], 08/13/2022 13:41:58 08/12/20 22 08/12/2022 CT/GC AND TRICH OMONA S VAGIN SIMIN (RRNA ), SWAB trichomonas vaginalis ribosomal RNA (rrna) Negati ve negati ve Not Available [facility] (Lab) [address], [place], [address], 08/13/2022 13:41:58 03/28/20 22 03/28/2022 US, obste tric, follo w-up No observ ation record ed. [email or web address] [place] [address], [place], [address], 03/28/2022 12:07:11 03/28/20 22 03/28/2022 US, obste tric, bioph ysica l profi le + non-s tress test No observ ation record ed. [email or web address] [place] [address], [place], [address], 03/28/2022 12:07:21 03/28/20 22 03/28/2022 US, obste tric, follo w-up No observ ation record ed. [email or web address] [address], [place], [address], 03/28/2022 19:29:15 03/28/20 22 03/28/2022 non-s tress test No observ ation record ed. [email or web address] [place] [address], [place], [address], 03/28/2022 19:04:07 04/04/20 22 04/04/2022 US, obste tric, follo w-up No observ ation record ed. [email or web address] [address], [place], [address], 04/06/2022 23:43:16 04/04/20 22 04/04/2022 non-s tress test No observ ation record ed. [email or web address] [place] [address], [place], [address], 04/04/2022 16:41:20 04/04/20 22 04/04/2022 US, obste tric, bioph ysica l profi le + non-s tress test No observ ation record ed. [email or web address] [place] [address], [place], [address], 04/04/2022 17:27:54 04/10/20 22 04/10/2022 US, obste tric, follo w-up No observ ation record ed. [address] [facility], [place], [address], 04/18/2022 00:13:11 04/10/20 22 04/10/2022 US, obste tric, follo w-up No observ ation record ed. [address] [facility], [place], [address], 04/10/2022 21:48:57 04/18/20 22 04/18/2022 non-s tress test No observ ation record ed. [email or web address] [place] [address], [place], [address], 04/18/2022 14:44:39 04/18/20 22 04/18/2022 US, obste tric, bioph ysica l profi le + non-s tress test No observ ation record ed. [email or web address] [place] [address], [place], [address], 04/18/2022 15:17:06 04/18/20 22 04/18/2022 US, obste tric, bioph ysica l profi le + non-s tress test No observ ation record ed. [email or web address] [address], [place], [address], 03/17/2023 11:09:01 Result Notes None recorded. Problems Name Problem SNOMED Code Status Onset Date Resolution Date Notes Provider Name and Address Organization Details Recorded Time Villa beltre user [id number] Completed 201904/15/2021 need rpt UDS Silvana Sosa [facility], [facility] 1 17:25:23 Nausea and vomiting 37011354 Completed Elenita Moyer [facility], [facility] 0 12:24:13 Back pain complica ting pregnanc y 68311903 Completed Elenita Moyer [facility], [facility] 0 12:24:13 Dilatati on of renal pelvis 615161753 Completed 06/07 LT - 7.1mm Elenita Moyer [facility], [facility] 0 12:24:13 Smoker 02025985 Completed 201904/15/2021 vaping Silvana Sosa [facility], [facility] 1 17:25:26 Gestatio nal diabetes mellitus 59590663 Completed Needs diet teaching byron Elenita Moyer [facility], [facility] 0 12:24:13 Hyperten sive disorder 23419509 Completed Gestatio nal hyperten italo Elenita Moyer [facility], [facility] 0 12:24:13 labor with delivery 7924820089 1106732 Completed 201904/15/2021 Karen Kenyon MD [address], [place], [address], [place] [facility] 2 19:00:13 Syphilis test finding 501255899 Completed 11/12/ 2019 04/15/2021 Encntr screen for infectio ns w sexl mode of transmis s;Practi ce ID: 0001 Silvana pan [facility] 17:25:22 Pelvic and perineal pain 893938500 Completed 201804/15/2021 Pelvic and perineal pain;Pra ctice ID: 0001 Silvana pan [facility] 17:25:16 Pregnanc y test negative 249872568 Completed 201804/15/2021 Encounte r for pregnanc y test, result negative ;Practic e ID: 0001 Silvana pan [facility] 17:25:15 Acute vaginiti s 56567673 Completed 201904/15/2021 Acute vaginiti s;Practi ce ID: 0001 Silvana pan, [facility] 17:25:13 Finding of regulari ty of menstrua l cycle Completed 201804/15/2021 Irregula r period;R ecorded Elsewher e: No Locat ion: [facility] S ource: EHR Lapel Padder Blindstitch brady: N Practi ce ID: 0001 Ney lable Time: 02:30:00 PM Silvana pan [facility] 17:25:08 Secondar y dysmenor tessie 25525373 Completed 201804/15/2021 Secondar y dysmenor tessie;Rec orded Elsewher e: No Locat ion: [facility] S ource: EHR Lapel Padder Blindstitch brady: N Practi ce ID: 0001 Ney lable Time: 01:30:00 PM Silvana pan [facility] 17:25:18 Educatio n Completed 201804/15/2021 Encounte r for other general counseli ng and advice on contrace ption;Re corded Elsewher e: No Locat ion: [facility] S ource: EHR Lapel Padder Blindstitch brady: N Practi ce ID: 0001 Ney lable Time: 01:30:00 PM Silvana pan, [facility] 1 17:25:20 Infectio n screenin g Completed 201804/15/2021 Encounte r for screenin g for oth infec/pa rastc diseases ;Recorde d Elsewher e: No Locat ion: [facility] S ource: EHR Lapel Padder Blindstitch brady: N Practi ce ID: 0001 Ney lable Time: 12:26:55 PM Silvana pan, [facility] 1 17:25:10 Gonorrhe a of lower genitour inary tract 8195274992 7490676 Completed 201804/15/2021 Gonococc al infectio n of lower genitour inary tract, unsp;Rec orded Elsewher e: No Locat ion: [facility] S ource: EHR Lapel Padder Blindstitch brady: N Practi ce ID: 0001 Ney lable Time: 04:00:00 PM Silvana Sosa viviane, [facility] 1 17:25:06 labor with delivery 7163811537 1679880 Completed 202111/04/2021 Karen Kenyon MD [address], [place], [address], [facility] 2 19:00:13 Pregnanc y 42351801 Completed 202105/19/2022 Sherine pan, [facility] 2 14:17:19 Villa beltre user 785269517 Completed +UDS Sherine pan, [facility] 2 14:17:12 Past pregnanc y history of severe pre-ecla mpsia 389940225 Active delivere d at 34w. ASA, baseline labs, antenata l testing at 32w Sherine Vasquezh l null, [facility] 2 14:17:12 Past pregnanc y history of gestatio nal diabetes mellitus 219726733 Active GCT at 20w, 28 if passes Sherinecheri Barrytieh l null, [facility] 2 14:17:11 Past pregnanc y history of severe pre-ecla mpsia 358287243 Completed delivere d at 34w. ASA, baseline labs, antenata l testing at 32w Sherine Vasquezh l null, [facility] 2 14:17:12 Past pregnanc y history of gestatio nal diabetes mellitus 593324976 Completed GCT at 20w, 28 if passes Sherine Barrytieh l null, [facility] 2 14:17:11 Subchori onic hematoma 659354401 Completed 2021 4.3x1.9x 3.3cm Sherine Xie l null, [facility] 2 14:17:12 Corpus luteum cyst 805424388 Completed 2021 25mm rt Karen Kenyon MD [address], [place], [address], [place] [facility] 2 14:28:09 Pregnanc y 69921646 Completed 201907/16/2020 Sherine Barrytieh l null, [facility] 2 14:17:19 Problem Notes None recorded. Procedures Surgical History None recorded. Imaging Results Imaging Date Name Status LastModified by Organiz ation Details LastModified Time 03/28/2022 US, obstetric, follow-up completed [email or web address] [place] [address], [place], [address], 03/28/2022 12:07:11 03/28/2022 US, obstetric, biophysical profile + non-stress [facility] [place] [address] [address], [place], [address], 03/28/2022 12:07:21 03/28/2022 US, obstetric, follow-up completed [email or web address] [address], [place], [address], 03/28/2022 19:29:15 03/28/2022 non-stress test [facility] [email or web address] [facility] [facility] [address], [place], [address], 03/28/2022 19:04:07 04/04/2022 US, obstetric, follow-up [facility] [address], [place], [address], 04/06/2022 23:43:16 04/04/2022 non-stress test [facility] [place] [address] [address], [place], [address], 04/04/2022 16:41:20 04/04/2022 US, obstetric, biophysical profile + non-stress test [facility] [place] [address] [address], [place], [address], 04/04/2022 17:27:54 04/10/2022 US, obstetric, follow-up completed [address], [place], [address], 04/18/2022 00:13:11 04/10/2022 US, obstetric, follow-up completed [address], [place], [address], 04/10/2022 21:48:57 04/18/2022 non-stress test completed [facility] [place] [address], [place], [address], 04/18/2022 14:44:39 04/18/2022 US, obstetric, biophysical profile + non-stress test completed [email or web address] [place] [address], [place], [address], 04/18/2022 15:17:06 04/18/2022 US, obstetric, biophysical profile + non-stress test completed [email or web address] [address], [place], [address], 03/17/2023 11:09:01 Procedure Notes None recorded. Medical [...] Elsewher e: No Locat ion: Rosana mark [facility] M odify By: romeo Mark ncounter DateTime [...] Elsewher e: No Locat ion: Bevdolores [facility] odify By: [email or web address] ich Enco unter DateTime [...] Prescrib ed Elsewher e: No Locat ion: [facility] odify By: romeo pollardunter DateTime : 06/13/20 [...] % 124 mm[Hg] 84 mm[Hg] Elenita Moyer [facility] 2 16:20:19 Date Recorded Body weight Provider Name an d Address Organization Details Last Updated DateTime 04/25/2022 02737.61341 g Sherine Arreguin [facility] 05/19/2022 14:17:15 Date Recorded Body height Body mass index (BMI) Percentile per age and sex Body mass index (BMI) Body weight Systolic blood pressure Diastolic blood pressure Systolic blood pressure Diastolic blood pressure Provider Name and Address Organization Details Last Updated DateTime 2 165.1 cm 40 % 21 kg/m2 35572.6 4 g 158 mm[Hg] 90 mm[Hg] 148 mm[Hg] 72 mm[Hg] Michelle Ch [facility] 2 16:47:53 Date Recorded Systolic blood pressure Diastolic blood pressure Provider Name and Address Organization Details Last Updated DateTime 06/09/2022 126 mm[Hg] 78 mm[Hg] Karen Kenyon MD [address], [place], [address], [facility] 06/09/2022 17:39:47 Date Recorded Body height Body mass index (BMI) Percentile per age and sex Body mass index (BMI) Body weight Systolic blood pressure Diastolic blood pressure Provider Name and Address Organization Details Last Updated DateTime 2 165.1 cm 31 % 20.3 kg/m2 87008.2 7 g 122 mm[Hg] 62 mm[Hg] Michelle Ch [facility] 2 15:57:27 Date Recorded Body height Body mass index (BMI) Body mass index (BMI) Percentile per age and sex Body weight Systolic blood pressure Diastolic blood pressure Provider Name and Address Organization Details Last Updated DateTime 2 165.1 cm 19.6 kg/m2 22 % 69149.9 g 135 mm[Hg] 81 mm[Hg] Michelle Ch [facility] 17:15:37 Date Recorded Body height Systolic blood pressure Diastolic blood pressure Provider Name and Address Organization Details Last Updated DateTime 01/15/2023 165.1 cm 126 mm[Hg] 83 mm[Hg] Brenna Shields [facility] 01/15/2023 16:32:41 Social History Question Answer Notes LastModified by Organizat ion Details LastModified Time Tobacco Smoking Status Current Every Day Smoker Bushra Singleton viviane, [facility] 06/09/2022 16:43:31 Do You Have [...] Type Of Diet Are You Following? REGULAR [email or web address] Information not available 01/03/2022 Which Illicit Or Recreational Drugs Have You Used? Marijuana [email or web address] Information not available 06/09/2022 Do You Or Have You Ever Used E-cigarettes Or Vape? Current User Of Electronic Cigarettes [email or web address] Information not available 06/09/2022 What Is The Highest Grade Or Level Of School You Have Completed Or The Highest Degree You Have Received? [id number] Information not available 05/29/2021 What Is Your Occupation? Dh[employer] Information not available 05/29/2021 Are There Any Guns Present In Your Home? No Information not available 05/29/2021 What Was The Date Of Your Most Recent Tobacco Screening? 04/25/2022 Information not available 06/09/2022 Do You Use [...] Anxious, Or Unable To Sleep At Night)? [id number] Information not available 05/29/2021 Do You Use Any Illicit Or Recreational Drugs? No Information not available 05/29/2021 Do You Use Sunscreen Routinely? Yes Information not available 05/29/2021 Have You Used IV Drugs? No Information not available 05/29/2021 Sex: Unknown Functional Status Question Answer Note LastModified by Organizat ion Details LastModified Time Do you have difficulty walking or climbing stairs? No Information not available 06/09/2022 Are you able to walk? YESWOREST Information not available 05/29/2021 Are you able to care for yourself? Yes [email or web address] Information not available 06/09/2022 Do you have difficulty dressing or bathing? No [email or web address] Information not available 06/09/2022 What is your exercise level? Occasional jgumber Information not available 12/20/2019 Mental Status None recorded. Family History Relationship Description Onset Age of this Age Resolved Age Notes LastModified by Organization Details LastModified Time Mother Anemia [email or web address] Not available 05/21/2021 09:39:48 Mother History of malignant neoplasm of cervix [email or web address] Not available 2021 16:43:30 Mother Family history of blood coagulation disorder [email or web address] Not available 2021 16:43:30 Mother Hypertensive disorder jgumber Not available 2019 17:53:51 Mother Hyperlipidem ia [email or web address] Not available 2021 16:43:30 Mother Multiple sclerosis jgumber Not available 2019 17:54:52 Father Hypertensive disorder jgumber Not available 2019 17:55:04 Maternal Grandmother Asthma [email or web address] Not available 05/08 09:39:48 Maternal Grandmother Congenital prolapsed uterus Prolap sed uterus [email or web address] Not available 06/09/2022 16:43:30 Paternal Grandmother Congenital heart disease [email or web address] Not available 2021 16:43:30 Paternal Grandmother Family history of malignant neoplasm of lung [email or web address] Not available 2021 16:43:30 Maternal Grandfather Congenital heart disease [email or web address] Not available 2021 16:43:30 Maternal Grandfather Hypertensive disorder jgumber Not available 2019 17:57:21 Maternal Grandfather Hyperlipidem ia [email or web address] Not available 2021 16:43:30 Maternal Grandfather Diabetes mellitus jgumber Not available 2019 17:57:57 Maternal Grandfather Family history of breast cancer [email or web address] Not available 2021 16:43:30 Maternal Aunt Hypertensive disorder jgumber Not available 2019 17:57:09 Maternal Aunt Congenital prolapsed uterus Not available 2021 16:43:30 Maternal Aunt Hyperlipidem ia [email or web address] Not available 2021 16:43:30 Maternal Aunt Diabetes mellitus jgumber Not available 2019 17:59:33 Maternal Aunt Family history of breast cancer [email or web address] Not available 2021 16:43:30 Sister Anemia [email or web address] Not available 05/21/2021 09:39:48 Maternal Uncle Family history of breast cancer [email or web address] Not available 2021 16:43:30 Maternal Uncle Family history of malignant neoplasm of lung [email or web address] Not available 2021 16:43:30 Medical History Condition Response Allergies (Food, seasonal, environmental ) N Other Y Blood Transfusion N Drug/Latex Allergies/Reactions N Breast Cancer N Dermatologic Disorders N Lung Disease N [...] ICD10 Code Diagnosis Note 739 Kathy Grover [place] [address] [address] 12/20/2019 14:54:00 12/21/2019 14:55:38 test positive [id number] Z32.01 3068 Stephanie Le [place] [address] [address] 01/10/2020 10:29:11 01/10/2020 11:41:18 screening 959153692 Z36.82 Z36.0 Z36.89 3069 S On License Of [facility] [address],[place] [address] 01/10/2020 10:29:56 01/10/2020 12:03:29 Normal 57350202 Z34.91 6244 Ziyad Gilbert MD [place] [address],[place] [address] 02/07/2020 13:58:06 02/07/2020 21:22:25 screening 118448692 Z36.82 Z36.0 Z36.89 6245 [facility] [place] [facility] [address],[place] [address] 02/07/2020 13:58:59 02/07/2020 16:21:27 8227 S On License Of [facility] [address],[place] [address] 02/21/2020 15:02:06 02/21/2020 16:52:02 Dizziness 585968785 R42 Likely due to low blood pressure, most likely from dehydratio n. Could have been hypoglycem ia as well. I advised her to drink lots of water and non-caffei nated beverages and eat frequent small meals or snacks. Avoid sudden positional changes. Bleeding from nose 70679 6005 R04.0 Check platelet count [id number] Stephanie Le [place] [address],[place] [address] 03/06/2020 14:52:53 03/06/2020 16:27:16 screening for malformation 468896599 Z36.3 12768 Ziyad Gilbert MD [place] [address],[place] [address] 03/09/2020 11:04:50 03/09/2020 12:43:22 Nausea and vomiting 29144905 R11.2 Low back pain 797407047 M54.5 Routine an tenatal care 876959217 Z34.92 [id number] [facility] [place] [facility] [address],[place] [address] 04/03/2020 16:29:02 04/03/2020 17:06:41 screening 413001451 Z36.2 22668 BLAZE DuranM [place] [address],[place] [address] 04/03/2020 16:29:25 04/03/2020 17:37:00 Routine care 061443122 Z34.92 89697 [facility] [address],[place] [address] 05/03/2020 11:32:25 05/03/2020 12:15:03 condition affecting obstetrical care of mother 497314249 O35.8XX0 Z3A.28 [id number] Chinyere Chaparro [facility] [address],[place] [address] 05/03/2020 11:33:32 05/06/2020 12:38:28 Routine care 837233728 Z34.92 [id number] [facility] [address],[place] [address] 05/17/2020 16:53:30 05/17/2020 17:58:01 Polyhydramnios 73385724 O40.3XX0 Z3A.30 [id number] Ziyad Gilbert MD [place] [address],[place] [address] 05/18/2020 13:53:20 05/18/2020 14:44:04 Routine care 781913243 Z34.92 [id number] [facility] [facility] [address],[place] [address] 05/31/2020 12:30:59 05/31/2020 13:53:51 [id number] Chelsea [facility] [address],[place] [address] 05/31/2020 13:58:01 05/31/2020 15:13:25 Gestational diabetes mellitus 07741370 O24.410 O35.8XX0 O16.3 O40.3XX0 Z3A.32 [id number] [facility] [address],[place] [address] 06/04/2020 16:05:16 06/07/2020 14:40:00 Routine care 901200916 Z34.93 [id number] Sherine Vasquez [facility] [address],[place] [address] 06/04/2020 16:05:31 06/04/2020 16:54:09 Gestational diabetes mellitus class A1 95537789 O24.410 [id number] Joy Newberry [place] [address],[place] [address] 06/04/2020 16:57:58 06/04/2020 17:57:34 Gestational diabetes mellitus 18790472 O24.410 O35.8XX0 O16.3 O40.3XX0 Z3A.32 Pt here [...] and pt verbalized understand ing. ANA fuentes [id number] [facility] [address],[place] [address] 06/07/2020 16:03:08 06/07/2020 17:01:59 Polyhydramnios 74321996 O40.3XX0 Z3A.33 [id number] Ziyad Gilbert MD [place] [address],[place] [address] 06/07/2020 16:03:41 06/11/2020 11:16:31 Gestational diabetes mellitus class A1 61406153 O24.410 [id number] [facility] [address],[place] [address] 06/22/2020 09:35:00 06/22/2020 10:39:13 -induced hypertension 83511164 O13.9 Contracept ion care management 364066231 Z30.9 86945 [facility] [address],[place] [address] 07/17/2020 12:24:04 07/17/2020 17:11:54 state 28037863 Z39.2 [id number] Ziyad Gilbert MD [place] [address],[place] [address] 04/17/2021 16:59:18 04/18/2021 16:23:51 Abnormal uterine bleeding 4217555053 9100 N93.9 Urinary symptoms 9545412 08 R39.9 [id number] [facility] [address],[place] [address] 05/21/2021 09:39:38 05/21/2021 10:39:24 Abnormal uterine bleeding 6627889541 9100 N93.9 R10.2 [id number] Ziyad Gilbert MD [place] [address],[place] [address] 05/29/2021 16:04:21 05/29/2021 17:57:32 Dyspareunia 08212835 N94.10 this patient is a 20-year-ol d [...] s. She will follow-up in 2 months. [id number] [facility] [address],[place] [address] 09/26/2021 16:20:35 09/26/2021 16:56:17 Threatened miscarriage 45889461 O20.0 Z3A.01 77599 Kathy Beltránstevengarcia [place] [address],[place] [address] 10/03/2021 13:53:09 10/03/2021 14:57:48 test positive 301945104 Z32.01 Risk factors addressed: Tobacco Cessation, Safe [...] annual well woman examinatio n and address [facility] . [id number] [facility] [address],[place] [address] 10/03/2021 13:52:15 10/03/2021 14:43:14 [id number] [facility] [address],[place] [address] 11/04/2021 15:25:00 11/04/2021 16:14:43 screening 891201515 Z36.82 [id number] Karen Kenyon MD [place] [address],[place] [address] 11/04/2021 15:25:31 11/04/2021 19:01:17 Routine care 789832288 Z34.90 Past pregn jn history of gestational diabetes mellitus 274814450 Z86.32 Past pregn jn history of severe pre-eclampsia 399835569 Z87.59 [id number] Ziyad Gilbert MD [place] [address] [place] [address] 12/09/2021 13:25:04 12/09/2021 14:15:18 Routine care 282945227 Z34.92 Vaginitis 22875967 N76.0 67924 [facility] [address],[place] [address] 01/03/2022 11:24:39 01/03/2022 12:47:49 Routine care 910137484 Z34.92 [id number] Nesha Milton [place] [address],[place] [address] 01/03/2022 11:24:13 01/03/2022 12:34:23 screening 958536851 Z36.3 [id number] Karen Kenyon MD [place] [address],[place] [address] 01/31/2022 14:04:26 01/31/2022 14:49:06 Routine care 822416110 Z34.90 Past pregn jn history of severe pre-eclampsia 642682388 Z87.59 Past pregn jn history of gestational diabetes mellitus 796602544 Z86.32 [id number] Karen Kenyon MD [place] [address],[place] [address] 02/28/2022 11:57:21 02/28/2022 12:31:58 Past history of gestational diabetes mellitus 262301036 Z86.32 Past pregn jn history of severe pre-eclampsia 211394470 Z87.59 [id number] Chinyere Chaparro CNM [place] [address] [place] [address] 03/14/2022 11:21:17 03/14/2022 12:27:05 Routine care 801093648 Z34.92 [id number] Nesha Milton [place] [address] [place] [address] 03/28/2022 11:30:09 03/28/2022 12:11:18 Past history of gestational diabetes mellitus 247583919 Z86.32 Z87.59 Z3A.32 [id number] Joy Newberry [place] [address] [place] [address] 03/28/2022 11:31:31 03/28/2022 12:45:44 Past history of pre-eclampsia 9696762430 39909 Z87.59 [id number] Chinyere Chaparro CNM [place] [address],[place] [address] 03/28/2022 11:31:54 03/28/2022 12:45:54 Routine care 735785302 Z34.92 [id number] [facility] [address],[place] [address] 04/04/2022 15:46:58 04/04/2022 17:08:55 Past history of gestational diabetes mellitus 097965378 Z86.32 Z87.59 Z3A.33 [id number] [facility] [address],[place] [address] 04/04/2022 15:47:45 04/04/2022 16:43:35 Gestational diabetes mellitus class A1 06110728 O24.410 [id number] Ziyad Gilbert MD [place] [address],[place] [address] 04/04/2022 15:49:36 04/04/2022 17:01:59 Routine care 055274046 Z34.92 [id number] [facility] [address],[place] [address] 04/18/2022 14:02:57 04/18/2022 14:57:24 Past history of pre-eclampsia 6992340555 82159 Z87.59 [id number] [facility] [address],[place] [address] 04/18/2022 14:03:43 04/18/2022 15:28:15 Past history of gestational diabetes mellitus 635113695 Z86.32 O99.891 Z87.59 Z3A.35 [id number] Karen Kenyon MD [place] [address],[place] [address] 04/18/2022 14:04:09 04/18/2022 15:55:55 Past history of severe pre-eclampsia 224046564 Z87.59 - induced hypertension 50588535 O13.9 [id number] Chinyere Chaparro [facility] [address],[place] [address] 04/25/2022 16:10:02 04/25/2022 16:34:01 Pre-eclampsia 145081411 O14.04 pt delivered HTN resolved, precaution s reviewed f/u 3 week pp visit [id number] Karen Kenyon MD [place] [address],[place] [address] 06/09/2022 16:43:14 06/10/2022 13:02:51 care 671337518 Z39.2 Past pregn jn history of severe pre-eclampsia 003354747 Z87.59 [id number] Karen Kenyon MD [place] [address],[place] [address] 07/21/2022 15:50:47 07/24/2022 12:47:43 Irregular periods 87453052 N92.6 Secondary amenorrhea 156 798008 N91.1 Pelvic floor tension 709 266172 R29.898 [id number] Karen Kenyon MD [place] [address],[place] [address] 08/12/2022 17:10:07 08/13/2022 15:18:47 Gynecologic examination 38791910 Z01.419 Surveillan ce of oral contraception 458854527 Z30.41 Venereal d isease screening 206229464 Z11.3 [id number] ALL Gunn [place] [address],[place] [address] 01/15/2023 16:12:01 01/15/2023 17:39:26 Vaginitis 51537609 N76.0 suspect yeastvagin itis panel sentSTI endocervic al testing sentvulvar care guidelines discussedr x sent, R/B/A discussed Venereal d isease screening 051642059 Z11.3 Dyspareunia 31630840 N94 .10 recommende d PFPT, she will [...] Walls Member ID Guarantor Name 04/25/2022 1 [facility] (MEDICAID HMO) [id number] 0003 Afshan Thebeau [id number] Afshan Thebeau 06/09/2022 1 [facility] (MEDICAID HMO) [id number] 0003 Afshan Thebeau [id number] Afshan Thebeau 07/21/2022 1 [facility] (MEDICAID HMO) [id number] 0003 Afshan Thebeau [id number] Afshan Thebeau 08/12/2022 1 [facility] (MEDICAID HMO) [id number] 0003 Afshan Thebeau [id number] Afshan Thebeau 01/15/2023 1 [facility] (MEDICAID HMO) [id number] 0003 Afshan Thebeau [id number] Afshan Thebeau Notes Date Note Type Note Provider Name and Address Organization Details Recorded Time 04/25/2022 text/html delivered for preeclampsia, was not put on meds post delivery, doing well, declines matthew, visual changes, epigastric pain, bp wnl Chinyere Chaparro CNM [address], [place], [address], [facility] 04/25/2022 16:26:24 06/09/2022 text/html [...] Pain- none. Bowel and bladder function normal. Reardan score 0Period-noAnnual due: nowConcerns: none Karen Kenyon MD [address], [place], [address], [facility] 06/10/2022 09:44:15 07/21/2022 text/html [...] constipation. Karen Kenyon MD [address], [place], [address], [facility] 07/28/2022 08:12:47 08/12/2022 text/html [...] concerns- Karen Kenyon MD [address], [place], [address], [facility] 08/12/2022 18:00:20 01/15/2023 text/html 22yopresents for evaluation of vaginal d/c and itchingsymptoms started 1 week ago, clump d/coften gets yeast infectionspain with IC for the past 1 year, symptoms resolve shortly after IC is overno new partnersneg vaginal odorneg n/v/fneg urinary symptomsnormal bowel movementscondoms for BC - stopped OCPnot ALL Gunn [address], [place], [address], [facility] 01/15/2023 17:26:19 OBGyn Episode Ob Episode Information Episode Created Date Number of Fetuses Patient Bloodtype Patient rh Status Prepregnancy Weight lbs Domestic Partner Domestic Partner Phone Father Name Gang Tailer Status 01/10/20 20 1 O Positive 130 CLOSED Fetus Data First Name Last Name Admitted to NICU Weight (g) Sex Living Outcome Pediatric Complications Fetus ID Race Codes Race Delivery Type 2182.91 15 M true Prematur e 1146 Vaginal Delivery Problems Problem Notes LVEIF notedx2 Problem Name Start Date End Date Resolution Snomed Code Not e Nausea and vomiting 35383799 Back pain complicating 00468317 Dilatation of renal pelvis 590016760 06/07 LT - 7.1mm Gestational diabetes mellitus 97816500 Needs diet teac damaris byron Hypertensive disorder 49786935 Gestational hypertension Ahsan Calculation Initial Ahsan Date [...] Date Ultra Sound Latest Days Gestation 0 [email or web address] 01/10/2020 07/20/20 20 0 Pre-solitario Flowsheet Flowsheet [...] Weight in lbs Pre/Post Dialysis Refused Weight 132.359102089261 BP Diastolic BP Location Tested BP Systolic [...] Weight in lbs Pre/Post Dialysis Refused Weight 188.244892519807 BP Diastolic BP Location Tested BP Systolic BP Type 77 138 Fetus Heart Rate Present Fetus Movement Comments This patient was not seen by me on this date. Flowsheet Date 02/21/2020 Maynard Score Blood Edema Fundus Height Fundus Units Glucose Ketones Leukocytes Nitrite Labor Signs Protein Cervic Dilation Cervic Effacement Cervic Station Type Weight in lbs Pre/Post Dialysis Refused Weight 135.31747955995 BP Diastolic BP Location Tested BP Systolic [...] Weight in lbs Pre/Post Dialysis Refused Weight 138.373063499797 BP Diastolic BP Location Tested BP Systolic [...] Weight in lbs Pre/Post Dialysis Refused Weight 142.150789993721 BP Diastolic BP Location Tested BP Systolic [...] Weight in lbs Pre/Post Dialysis Refused Weight 147.889525905153 BP Diastolic BP Location Tested BP Systolic [...] Weight in lbs Pre/Post Dialysis Refused Weight 146.402927277807 BP Diastolic BP Location Tested BP Systolic BP Type 92 R arm 147 sitting Fetus Heart Rate Present A 145 Fetus Movement A Yes Comments Flowsheet Date 05/31/2020 Maynard Score Blood Edema Fundus Height Fundus Units Glucose Ketones Leukocytes Nitrite Labor Signs Protein Cervic Dilation Cervic Effacement Cervic Station neg trace trace Type Weight in lbs Pre/Post Dialysis Refused Weight 150.012492354989 BP Diastolic BP Location Tested BP Systolic [...] Weight in lbs Pre/Post Dialysis Refused Weight 149.611298522600 BP Diastolic BP Location Tested BP Systolic [...] Weight in lbs Pre/Post Dialysis Refused Weight 128.661849801922 BP Diastolic BP Location Tested BP Systolic [...] At Estimated Date of Delivery false Thalassemia (Sao Tomean, Pakistani, Mediterranean, Or Background): MCV < 80 false Neural Tube Defect (Meningom yelocele, Spina Bifida, Or Anencephaly) false Congenital Heart Defect false Down Syndrome false Saeid-Sachs (eg, Muslim, Cajun, Romanian-Alameda) f alse Sanford Disease false Sickle Cell Disease Or Trait () false Hemophilia Or Other Blood Disorders false Muscular Dystrophy false Cystic Fibrosis false Harper's Chorea false Intellectual Disability/Autism false If Yes, [...] Sterilization Discharge Date Comments 0 34 true [email or web address] GDM , preeclamp usman Discharge Information Feeding Method Contraceptive Method Maternal HG B and HCT Levels Ob Episode Information Episode Created Date Number of Fetuses Patient Bloodtype Patient rh Status Prepregnancy Weight lbs Domestic Partner Domestic Partner Phone Father Name Gang Tailer Status 01/10/20 20 1 CLOSED Fetus Data [...] Domestic Partner Domestic Partner Phone Father Name Gang Tailer Status 06/15/20 20 1 DELETED Ahsan Calculation [...] Domestic Partner Domestic Partner Phone Father Name Gang Tailer Status 11/04/19 22 1 O Positive 112 CLOSED Fetus Data First Name Last Name Admitted to NICU Weight (g) Sex Living Outcome Pediatric Complications Fetus ID Race Codes Race Delivery Type 2721.55 2 M true Prematur e 65615 Vaginal Delivery Problems Problem Notes declines flu and COVID vacci rashard (has not had covid)NL labs, NIPT NL. 06/08/2020 neg CF/SMA Problem Name Start Date End Date Resolution Snomed Code Not e Past history of severe pre-eclampsia 757020112 deli gina at 34w. ASA, baseline labs, testing at 32w Past history of gestational diabetes mellitus 898478365 GCT at 20w, 28 if passes Subchorionic hematoma 09/26/2021 0507541 04 4.3x1.9x3.3cm Marijuana user [id number] +UDS Ahsan Calculation Initial Ahsan Date Initial [...] Date Ultra Sound Latest Days Gestation 0 [email or web address] 11/04/2021 05/23/20 22 0 Pre-solitario Flowsheet Flowsheet Date 11/04/2021 Maynard Score Blood Edema Fundus Height Fundus Units Glucose Ketones Leukocytes Nitrite Labor Signs Protein Cervic Dilation Cervic Effacement Cervic Station Type Weight in lbs Pre/Post Dialysis Refused Weight 114.108276746053 BP Diastolic BP Location Tested BP Systolic [...] Weight in lbs Pre/Post Dialysis Refused Weight 125.076084094168 BP Diastolic BP Location Tested BP Systolic [...] Weight in lbs Pre/Post Dialysis Refused Weight 127.577036237826 BP Diastolic BP Location Tested BP Systolic [...] Weight in lbs Pre/Post Dialysis Refused Weight 131.380705719464 BP Diastolic BP Location Tested BP Systolic [...] Weight in lbs Pre/Post Dialysis Refused Weight 137.541389744810 BP Diastolic BP Location Tested BP Systolic [...] Weight in lbs Pre/Post Dialysis Refused Weight 135.75176989629 BP Diastolic BP Location Tested BP Systolic [...] Weight in lbs Pre/Post Dialysis Refused Weight 135.92363668991 BP Diastolic BP Location Tested BP Systolic [...] Weight in lbs Pre/Post Dialysis Refused Weight 141.015888050100 BP Diastolic BP Location Tested BP Systolic [...] Weight in lbs Pre/Post Dialysis Refused Weight 137.713503196981 BP Diastolic BP Location Tested BP Systolic [...] Weight in lbs Pre/Post Dialysis Refused Weight 126.24251792317 BP Diastolic BP Location Tested BP Systolic [...] Estim ated Date of Delivery false Thalassemia (Sao Tomean, Pakistani, Mediterranean, Or Background): MCV < 80 false Neural Tube Defect (Meningomyelocele, Spina Bifi da, Or Anencephaly) false Congenital Heart Defect false Down Syndrome false Saeid-Sachs (eg, Muslim, Cajun, Romanian-[place]) f alse Sanford Disease false Sickle Cell Disease Or Trait () false Hemophilia Or Other Blood Disorders false Muscular Dystrophy false Cystic Fibrosis false Harper's Chorea false Intellectual Disability/Autism false If Yes, [...]
== END 2024-11-15 17:35 | disposition home or self-care (01) ==
PROVIDERS: Emergency Provider Physician Assistant
DX: K08.89 Other specified disorders of teeth and supporting structures (principal)
CPT/HCPCS: 99283

== ENCOUNTER 2024-12-08 19:09 | Emergency (ER) | payer OTHER, SELFPAY ==
--- OUTSIDE RECORDS SUMMARY | 2024-12-08 19:12 | XMS_ITS | Data Portability ---
Author Organization [facility] Address [address] [place] [address] [place] [address] Assessment Encounter Date Assessment Date Assessment LastModified by Organization Details LastModified Time 06/09/2022 06/09/2022 FU for exam Normal exam May resume normal activities contraceptive plan-- OCP. has a few packs left at home, will start with menses. FU for WWE 2 mos. [email or web address] Not available 06/10/2022 09:43:55 07/21/2022 07/21/2022 labs per below if no period in 1 mo, preg test and US hcg neg today declines contraception flexeril for pelvic muscle pain. discussed PT- pt declines for now. [email or web address] Not available 07/28/2022 08:12:22 08/12/2022 08/12/2022 healthy female exam GC/CT/trich done declines further std testing pap at 21 contraception-OC P. will call when needs refills. HPV vaccine done FU 1 year or prn [email or web address] Not available 08/12/2022 18:00:04 Plan of Treatment Reminders Order Date Submit Date Provider Last Modified By Organization Details Last Modified Time Details Appointments None recorded . Lab pregnanc y test, urine 2021 022 [facility], [address], [place], [address], 05:00:50 testoste yari, free + total, serum 2021 022 [facility] (Lab), [address], [place], [address], 21:11:53 dhea-sul fate, serum 2021 [facility] (Lab), [address], [place], [address], 21:11:50 estradio l, serum 2021 [facility] (Lab), [address], [place], [address], 21:11:51 FSH (follicl e-stimul ating hormone) , serum 2021 [facility] (Lab), [address], [place], [address], 21:11:51 HbA1c (hemoglo bin A1c), blood 2021 [facility] (Lab), [address], [place], [address], 21:11:52 prolacti n, serum 2021 [facility] (Lab), [address], [place], [address], 21:11:52 TSH, serum or plasma 2021 [facility] (Lab), [address], [place], [address], 21:11:52 Referral None recorded . Procedures None recorded . Surgeries None recorded . Imaging US, pelvis, complete 2022 [facility]23 [facility] [facility], [address], [place], [address], 3 14:57:16 Medication Orders fluconaz ole 150 mg tablet 2022 023 [id number], [address], [place], [place], [id number], 16:48:39 francesca zaprine 10 mg tablet 2021 022 [id number], [address], [place], [place], [id number], 2 16:29:21 Patient TargetsNo targets recorded. Patient [...] 9-246 > 75 12-15 4 Not Available [facility] (Lab) [address] , [place], [address], 07/25/2022 21:11:50 07/21/20 22 07/21/2022 ESTRA DIOL [...] 561-2 1280 pg/mL 3rd Trime ster8 525-> 75982 pg/mL Not Available [facility] (Lab) [address], [place], [address], 07/25/2022 21:11:51 07/21/20 22 07/21/2022 FSH FSH 6.3 mIU/m L This assay was perfo rmed using [employer] ratio n reage nts and test kits. Value s obtai zion with other assay metho ds or kits canno t be used inter [facility] sita . Femal es Folli cular : 3.5-1 2.5 mIU/m L Ovula tion: 4.7-2 1.5 mIU/m L Lutea l: 1.7-7 .7 mIU/m L Postm enopa use: 25.8- 134.8 mIU/m L Not Available [facility] (Lab) [address], [place], [address], 07/25/2022 21:11:51 07/21/20 22 07/21/2022 PROLA CTIN prolactin, total 28.80 NG/mL 4.79-2 3.30 high This assay was perfo rmed using [employer] reage nts and test kits. Value s obtai zion with other assay metho ds or kits canno t be used inter [facility] . Not Available [facility] (Lab) [address] [place], [address], 07/25/2022 21:11:52 07/21/20 22 07/21/2022 HEMOG LOBIN [...] >8.0% Actio n sugge sted Not Available [facility] (Lab) [address], [place], [address], 07/25/2022 21:11:52 07/21/20 22 07/21/2022 TSH, REFLE X FREE T4 TSH 0.89 uIU/m L 0.30-5 .33 Not Available [facility] (Lab) [address], [place], [address], 07/25/2022 21:11:52 07/21/20 22 07/21/2022 TESTO STERO NE, FREE, DIREC T WITH TOTAL testosterone , serum 25 NG/dL Not Available [facility] (Lab) [address], [place], [address], 07/25/2022 21:11:53 07/21/20 22 07/21/2022 TESTO STERO NE, FREE, DIREC T WITH TOTAL free testosterone (direct) 0.6 pg/mL 0.0-4. 2 Perfo rmed at: 01 - [facility] [address] [place] [address] Lab Direc tor: Ubaldo morris PhD, Phone : [phone] Perfo rmed at: 02 - [facility] [address] [place] [address] Lab Direc tor: Mildred sofia MD, Phone : [phone] Not Available [facility] (Lab) [address], [place], [address], 07/25/2022 21:11:53 08/12/20 22 08/12/2022 CT/GC AND TRICH OMONA S VAGIN SIMIN (RRNA ), SWAB chlamydia trachomatis, PCR Negati ve negati ve Not Available [facility] (Lab) [address], [place], [address], 08/13/2022 13:41:58 08/12/20 22 08/12/2022 CT/GC AND TRICH OMONA S VAGIN SIMIN (RRNA ), SWAB neisseria gonorrhoeae, PCR Negati ve negati ve Not Available [facility] (Lab) [address], [place], [address], 08/13/2022 13:41:58 08/12/20 22 08/12/2022 CT/GC AND TRICH OMONA S VAGIN SIMIN (RRNA ), SWAB trichomonas vaginalis ribosomal RNA (rrna) Negati ve negati ve Not Available [facility] (Lab) [address], [place], [address], 08/13/2022 13:41:58 03/28/20 22 03/28/2022 US, obste tric, follo w-up No observ ation record ed. [email or web address] [facility] [address], [place], [address], 03/28/2022 12:07:11 03/28/20 22 03/28/2022 US, obste tric, bioph ysica l profi le + non-s tress test No observ ation record ed. [email or web address] [place] [address], [place], [address], 03/28/2022 12:07:21 03/28/20 22 03/28/2022 US, obste tric, follo w-up No observ ation record ed. [email or web address] [address], [place], [address], 03/28/2022 19:29:15 03/28/20 22 03/28/2022 non-s tress test No observ ation record ed. [email or web address] [place] [address], [place], [address], 03/28/2022 19:04:07 04/04/20 22 04/04/2022 US, obste tric, follo w-up No observ ation record ed. [email or web address] [address], [place], [address], 04/06/2022 23:43:16 04/04/20 22 04/04/2022 non-s tress test No observ ation record ed. [email or web address] [place] [address], [place], [address], 04/04/2022 16:41:20 04/04/20 22 04/04/2022 US, obste tric, bioph ysica l profi le + non-s tress test No observ ation record ed. [email or web address] [place] [address], [place], [address], 04/04/2022 17:27:54 04/10/20 22 04/10/2022 US, obste tric, follo w-up No observ ation record ed. [address] [facility], [place], [address], 04/18/2022 00:13:11 04/10/20 22 04/10/2022 US, obste tric, follo w-up No observ ation record ed. [address] [facility], [place], [address], 04/10/2022 21:48:57 04/18/20 22 04/18/2022 non-s tress test No observ ation record ed. [email or web address] [place] [address], [place], [address], 04/18/2022 14:44:39 04/18/20 22 04/18/2022 US, obste tric, bioph ysica l profi le + non-s tress test No observ ation record ed. [email or web address] [place] [address], [place], [address], 04/18/2022 15:17:06 04/18/20 22 04/18/2022 US, obste tric, bioph ysica l profi le + non-s tress test No observ ation record ed. [email or web address] [address], [place], [address], 03/17/2023 11:09:01 Result Notes None recorded. Problems Name Problem SNOMED Code Status Onset Date Resolution Date Notes Provider Name and Address Organization Details Recorded Time Villa beltre user [id number] Completed 201904/15/2021 need rpt UDS Silvana Sosa [facility], [facility] 1 17:25:23 Nausea and vomiting 94734554 Completed Elenita Moyer [facility], [facility] 0 12:24:13 Back pain complica ting pregnanc y 91498918 Completed Elenita Moyer [facility], [facility] 0 12:24:13 Dilatati on of renal pelvis 822236207 Completed 06/07 LT - 7.1mm Elenita Moyer [facility], [facility] 0 12:24:13 Smoker 00979212 Completed 201904/15/2021 vaping Silvana Sosa [facility], [facility] 1 17:25:26 Gestatio nal diabetes mellitus 13072107 Completed Needs diet teaching byron Elenita Moyer [facility], [facility] 0 12:24:13 Hyperten sive disorder 56014585 Completed Gestatio nal hyperten italo Elenita Moyer [facility], [facility] 0 12:24:13 labor with delivery [id number] 7414946 Completed 201904/15/2021 Karen Kenyon MD [address], [place], [address], [place] [facility] 2 19:00:13 Syphilis test finding 456595354 Completed 11/12/ 2019 04/15/2021 Encntr screen for infectio ns w sexl mode of transmis s;Practi ce ID: 0001 Silvana pan [facility] 17:25:22 Pelvic and perineal pain 710332405 Completed 201804/15/2021 Pelvic and perineal pain;Pra ctice ID: 0001 Silvana pan [facility] 17:25:16 Pregnanc y test negative 124253859 Completed 201804/15/2021 Encounte r for pregnanc y test, result negative ;Practic e ID: 0001 Silvana pan [facility] 17:25:15 Acute vaginiti s 69232596 Completed 201904/15/2021 Acute vaginiti s;Practi ce ID: 0001 Silvana pan, [facility] 17:25:13 Finding of regulari ty of menstrua l cycle Completed 201804/15/2021 Irregula r period;R ecorded Elsewher e: No Locat ion: [facility] S ource: EHR Line Dancer brady: N Practi ce ID: 0001 Ney lable Time: 02:30:00 PM Silvana pan [facility] 17:25:08 Secondar y dysmenor tessie 18409010 Completed 201804/15/2021 Secondar y dysmenor tessie;Rec orded Elsewher e: No Locat ion: [facility] S ource: EHR Line Dancer brady: N Practi ce ID: 0001 Ney lable Time: 01:30:00 PM Silvana pan [facility] 17:25:18 Educatio n Completed 201804/15/2021 Encounte r for other general counseli ng and advice on contrace ption;Re corded Elsewher e: No Locat ion: [facility] S ource: EHR Line Dancer brady: N Practi ce ID: 0001 Ney lable Time: 01:30:00 PM Silvana pan, [facility] 1 17:25:20 Infectio n screenin g Completed 201804/15/2021 Encounte r for screenin g for oth infec/pa rastc diseases ;Recorde d Elsewher e: No Locat ion: [facility] S ource: EHR Line Dancer brady: N Practi ce ID: 0001 Ney lable Time: 12:26:55 PM Silvana pan, [facility] 1 17:25:10 Gonorrhe a of lower genitour inary tract [id number] 6917899 Completed 201804/15/2021 Gonococc al infectio n of lower genitour inary tract, unsp;Rec orded Elsewher e: No Locat ion: [facility] S ource: EHR Line Dancer brady: N Practi ce ID: 0001 Ney lable Time: 04:00:00 PM Silvana Sosa viviane, [facility] 1 17:25:06 labor with delivery [id number] 7408071 Completed 202111/04/2021 Karen Kenyon MD [address], [place], [address], [facility] 2 19:00:13 Pregnanc y 10386802 Completed 202105/19/2022 Sherine pan, [facility] 2 14:17:19 Villa beltre user [id number] Completed +UDS Sherine pan, [facility] 2 14:17:12 Past pregnanc y history of severe pre-ecla mpsia 383581259 Active delivere d at 34w. ASA, baseline labs, antenata l testing at 32w Sherine Vasquezh l null, [facility] 2 14:17:12 Past pregnanc y history of gestatio nal diabetes mellitus 451237646 Active GCT at 20w, 28 if passes Sherinecheri Barrytieh l null, [facility] 2 14:17:11 Past pregnanc y history of severe pre-ecla mpsia 540250747 Completed delivere d at 34w. ASA, baseline labs, antenata l testing at 32w Sherine Vasquezh l null, [facility] 2 14:17:12 Past pregnanc y history of gestatio nal diabetes mellitus 630239508 Completed GCT at 20w, 28 if passes Sherine Barrytieh l null, [facility] 2 14:17:11 Subchori onic hematoma 606762682 Completed 2021 4.3x1.9x 3.3cm Sherine Xie l null, [facility] 2 14:17:12 Corpus luteum cyst 536725601 Completed 2021 25mm rt Karen Kenyon MD [address], [place], [address], [place] [facility] 2 14:28:09 Pregnanc y 81539599 Completed 201907/16/2020 Sherine Barrytieh l null, [facility] 2 14:17:19 Problem Notes None recorded. Procedures Surgical History None recorded. Imaging Results Imaging Date Name Status LastModified by Organiz ation Details LastModified Time 03/28/2022 US, obstetric, follow-up completed [email or web address] [facility] [address], [place], [address], 03/28/2022 12:07:11 03/28/2022 US, obstetric, biophysical profile + non-stress [email or web address] [place] [address] [address], [place], [address], 03/28/2022 12:07:21 03/28/2022 US, obstetric, follow-up completed [email or web address] [address], [place], [address], 03/28/2022 19:29:15 03/28/2022 non-stress test [email or web address], [place], [address], 03/28/2022 19:04:07 04/04/2022 US, obstetric, follow-up [facility] [address], [place], [address], 04/06/2022 23:43:16 04/04/2022 non-stress test [facility] [place] [address] [address], [place], [address], 04/04/2022 16:41:20 04/04/2022 US, obstetric, biophysical profile + non-stress test [email or web address] [place] [address] [address], [place], [address], 04/04/2022 17:27:54 04/10/2022 US, obstetric, follow-up completed [address], [place], [address], 04/18/2022 00:13:11 04/10/2022 US, obstetric, follow-up completed [address] [place], [address], 04/10/2022 21:48:57 04/18/2022 non-stress test completed [facility] [address], [place], [address], 04/18/2022 14:44:39 04/18/2022 US, obstetric, biophysical profile + non-stress test completed [email or web address] [facility] [address], [place], [address], 04/18/2022 15:17:06 04/18/2022 US, obstetric, biophysical profile + non-stress test completed [email or web address] [address], [place], [address], 03/17/2023 11:09:01 Procedure Notes None recorded. Medical [...] Elsewher e: No Locat ion: Rosana mark [facility] M odify By: romeo Mark ncounter DateTime [...] Elsewher e: No Locat ion: [facility] odify By: [email or web address] ich Enco unter DateTime [...] Prescrib ed Elsewher e: No Locat ion: [facility] odify By: romeo pollardunter DateTime : 06/13/20 [...] % 124 mm[Hg] 84 mm[Hg] Elenita Moyer [facility] 2 16:20:19 Date Recorded Body weight Provider Name an d Address Organization Details Last Updated DateTime 04/25/2022 55511.55470 g Sherine [facility] 05/19/2022 14:17:15 Date Recorded Body height Body mass index (BMI) Percentile per age and sex Body mass index (BMI) Body weight Systolic blood pressure Diastolic blood pressure Systolic blood pressure Diastolic blood pressure Provider Name and Address Organization Details Last Updated DateTime 2 165.1 cm 40 % 21 kg/m2 35205.6 4 g 158 mm[Hg] 90 mm[Hg] 148 mm[Hg] 72 mm[Hg] Michelle Ch [facility] 2 16:47:53 Date Recorded Systolic blood pressure Diastolic blood pressure Provider Name and Address Organization Details Last Updated DateTime 06/09/2022 126 mm[Hg] 78 mm[Hg] Karen Kenyon MD [address], [place], [address], [facility] 06/09/2022 17:39:47 Date Recorded Body height Body mass index (BMI) Percentile per age and sex Body mass index (BMI) Body weight Systolic blood pressure Diastolic blood pressure Provider Name and Address Organization Details Last Updated DateTime 2 165.1 cm 31 % 20.3 kg/m2 51661.2 7 g 122 mm[Hg] 62 mm[Hg] Michelle Ch [facility] 2 15:57:27 Date Recorded Body height Body mass index (BMI) Body mass index (BMI) Percentile per age and sex Body weight Systolic blood pressure Diastolic blood pressure Provider Name and Address Organization Details Last Updated DateTime 2 165.1 cm 19.6 kg/m2 22 % 49836.9 g 135 mm[Hg] 81 mm[Hg] Michelle Ch [facility] 17:15:37 Date Recorded Body height Systolic blood pressure Diastolic blood pressure Provider Name and Address Organization Details Last Updated DateTime 01/15/2023 165.1 cm 126 mm[Hg] 83 mm[Hg] Brenna Shields [facility] 01/15/2023 16:32:41 Social History Question Answer Notes LastModified by Organizat ion Details LastModified Time Tobacco Smoking Status Current Every Day Smoker Bushra Singleton viviane, [facility] 06/09/2022 16:43:31 Do You Have An [...] Type Of Diet Are You Following? REGULAR [email or web address] Information not available 01/03/2022 Which Illicit Or Recreational Drugs Have You Used? Marijuana [email or web address] Information not available 06/09/2022 Do You Or Have You Ever Used E-cigarettes Or Vape? Current User Of Electronic Cigarettes [email or web address] Information not available 06/09/2022 What Is The Highest Grade Or Level Of School You Have Completed Or The Highest Degree You Have Received? 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 No Information not available 05/29/2021 What Was The Date Of Your Most Recent Tobacco Screening? 04/25/2022 [email or web address] Information not available 06/09/2022 Do You Use Protection During Sex? No Information not available 05/29/2021 Do You Use Your Seat Belt Or Car Seat Routinely? Yes Information not available 05/29/2021 Do You Have Smoke And Carbon Monoxide Detectors In Your Home? Yes Information not available 05/29/2021 Do You Or Have You Ever Used Smokeless Tobacco? Never Used Smokeless Tobacco [email or web address] Information not available 06/09/2022 How Much Tobacco Do You Smoke? No Information not available 05/29/2021 Do You Feel Stressed (tense, Restless, Nervous, Or Anxious, Or Unable To Sleep At Night)? [id number] Information not available 05/29/2021 Do You Use Any Illicit Or Recreational Drugs? No Information not available 05/29/2021 Do You Use Sunscreen Routinely? Yes Information not available 05/29/2021 Have You Used IV Drugs? No Information not available 05/29/2021 Sex: Unknown Functional Status Question Answer Note LastModified by Organizat ion Details LastModified Time Do you have difficulty walking or climbing stairs? No [email or web address] Information not available 06/09/2022 Are you able to walk? YESWOREST Information not available 05/29/2021 Are you able to care for yourself? Yes [email or web address] Information not available 06/09/2022 Do you have difficulty dressing or bathing? No [email or web address] Information not available 06/09/2022 What is your exercise level? Occasional [email or web address] Information not available 12/20/2019 Mental Status None recorded. Family History Relationship Description Onset Age of this Age Resolved Age Notes LastModified by Organization Details LastModified Time Mother Anemia [email or web address] Not available 05/21/2021 09:39:48 Mother History of malignant neoplasm of cervix [email or web address] Not available 2021 16:43:30 Mother Family history of blood coagulation disorder Not available 2021 16:43:30 Mother Hypertensive disorder jgumber Not available 2019 17:53:51 Mother Hyperlipidem ia [email or web address] Not available 2021 16:43:30 Mother Multiple sclerosis jgumber Not available 2019 17:54:52 Father Hypertensive disorder jgumber Not available 2019 17:55:04 Maternal Grandmother Asthma Not available 05/08 09:39:48 Maternal Grandmother Congenital prolapsed uterus Prolap sed uterus Not available 06/09/2022 16:43:30 Paternal Grandmother Congenital heart disease Not available 2021 16:43:30 Paternal Grandmother Family history of malignant neoplasm of lung [email or web address] Not available 2021 16:43:30 Maternal Grandfather Congenital heart disease [email or web address] Not available 2021 16:43:30 Maternal Grandfather Hypertensive disorder jgumber Not available 2019 17:57:21 Maternal Grandfather Hyperlipidem ia [email or web address] Not available 2021 16:43:30 Maternal Grandfather Diabetes mellitus jgumber Not available 2019 17:57:57 Maternal Grandfather Family history of breast cancer [email or web address] Not available 2021 16:43:30 Maternal Aunt Hypertensive disorder jgumber Not available 2019 17:57:09 Maternal Aunt Congenital prolapsed uterus Not available 2021 16:43:30 Maternal Aunt Hyperlipidem ia [email or web address] Not available 2021 16:43:30 Maternal Aunt Diabetes mellitus jgumber Not available 2019 17:59:33 Maternal Aunt Family history of breast cancer Not available 2021 16:43:30 Sister Anemia [email or web address] Not available 05/21/2021 09:39:48 Maternal Uncle Family history of breast cancer [email or web address] Not available 2021 16:43:30 Maternal Uncle Family history of malignant neoplasm of lung [email or web address] Not available 2021 16:43:30 Medical History Condition Response Other Y Blood Transfusion N Dermatologic Disorders N Gestational Diabetes Y Anxiety Disorder N Autoimmune disease N Arthritis N Polyps N Infertility N Acid Reflux (GERD) N Cancer N Varicosities N Stroke N Neurologic/Epilepsy N Fibromyalgia N Headaches N Kidney Disease N Heart Problems N Kidney or Bladder Problems N Eating Disorder N Art (IVF or FET) N Hepatitis/Liver Disease N Urinary Tract Infection N Asthma N Trauma/Violence N Thrombophilias N Allergies (Food, seasonal, environmental ) N Breast Cancer N Drug/Latex Allergies/Reactions N Lung Disease N Defects or Inherited Disease N Breast Problem N Hematologic disorders N Anesthesia Complications N History of STI N Deep Vein Thrombosis N Polycystic ovary syndrome N History of abnormal pap N Endometriosis N High Cholesterol N Thyroid Problems N GI Problems N Anemia N Psychiatric Illness N Ovarian Cancer N Diabetes Y Pulmonary (TB, Asthma) N Eczema N Abuse/Domestic Violence N Depression/ depression N Heart Disease N Pre-Eclampsia Y Hypertension Y Osteoporosis N Gynecological History Statement/Question Response Flow Moderate [...] ICD10 Code Diagnosis Note [id number] Kathy Grover [place] [address] [address] 12/20/2019 14:54:00 12/21/2019 14:55:38 test positive [id number] Z32.01 [id number] Stephanie Le [place] [address] [address] 01/10/2020 10:29:11 01/10/2020 11:41:18 screening 981307385 Z36.82 Z36.0 Z36.89 [address] [facility] [address],[place] [address] 01/10/2020 10:29:56 01/10/2020 12:03:29 Normal 37023212 Z34.91 6244 iZyad Gilbert MD [place] [address],[place] [address] 02/07/2020 13:58:06 02/07/2020 21:22:25 screening 189811198 Z36.82 Z36.0 Z36.89 6245 [facility] [address],[place] [address] 02/07/2020 13:58:59 02/07/2020 16:21:27 [address] [facility] [address],[place] [address] 02/21/2020 15:02:06 02/21/2020 16:52:02 Dizziness 138213929 R42 Likely due to low blood pressure, most likely from dehydratio n. Could have been hypoglycem ia as well. I advised her to drink lots of water and non-caffei nated beverages and eat frequent small meals or snacks. Avoid sudden positional changes. Bleeding from nose 95084 6005 R04.0 Check platelet count [id number] Stephanie Le [place] [address],[place] [address] 03/06/2020 14:52:53 03/06/2020 16:27:16 screening for malformation 965865612 Z36.3 [id number] Ziyad Gilbert MD [facility] [address],[place] [address] 03/09/2020 11:04:50 03/09/2020 12:43:22 Nausea and vomiting 53484393 R11.2 Low back pain 436140935 M54.5 Routine an tenatal care 131238412 Z34.92 05325 [facility] [address],[place] [address] 04/03/2020 16:29:02 04/03/2020 17:06:41 screening 524765998 Z36.2 22806 BLAZE DuranM [facility] [address],[place] [address] 04/03/2020 16:29:25 04/03/2020 17:37:00 Routine care 853221128 Z34.92 [id number] [facility] [address],[place] [address] 05/03/2020 11:32:25 05/03/2020 12:15:03 condition affecting obstetrical care of mother 019684797 O35.8XX0 Z3A.28 90943 Chinyere Chaparro [facility] [address],[place] [address] 05/03/2020 11:33:32 05/06/2020 12:38:28 Routine care 359681063 Z34.92 [id number] [facility] [address],[place] [address] 05/17/2020 16:53:30 05/17/2020 17:58:01 Polyhydramnios 90741091 O40.3XX0 Z3A.30 51835 Ziyad Gilbert MD [facility] [address],[place] [address] 05/18/2020 13:53:20 05/18/2020 14:44:04 Routine care 365068239 Z34.92 78395 [facility] [address],[place] [address] 05/31/2020 12:30:59 05/31/2020 13:53:51 10581 [facility] [address],[place] [address] 05/31/2020 13:58:01 05/31/2020 15:13:25 Gestational diabetes mellitus 75519508 O24.410 O35.8XX0 O16.3 O40.3XX0 Z3A.32 02634 [facility] [address],[place] [address] 06/04/2020 16:05:16 06/07/2020 14:40:00 Routine care 229884835 Z34.93 97348 Sherine Vasquez [facility] [address],[place] [address] 06/04/2020 16:05:31 06/04/2020 16:54:09 Gestational diabetes mellitus class A1 79548380 O24.410 94495 Joy Newberry [facility] [address],[place] [address] 06/04/2020 16:57:58 06/04/2020 17:57:34 Gestational diabetes mellitus 33747745 O24.410 O35.8XX0 O16.3 O40.3XX0 Z3A.32 Pt here [...] and pt verbalized understand ing. ANA fuentes [id number] [facility] [address],[place] [address] 06/07/2020 16:03:08 06/07/2020 17:01:59 Polyhydramnios 39308795 O40.3XX0 Z3A.33 43504 Ziyad Gilbert MD [facility] [address],[place] [address] 06/07/2020 16:03:41 06/11/2020 11:16:31 Gestational diabetes mellitus class A1 98975016 O24.410 [id number] [facility] [address],[place] [address] 06/22/2020 09:35:00 06/22/2020 10:39:13 -induced hypertension 86767222 O13.9 Contracept ion care management 050833358 Z30.9 71144 [facility] [address],[place] [address] 07/17/2020 12:24:04 07/17/2020 17:11:54 state 38818991 Z39.2 48743 Ziyad Gilbert MD [facility] [address],[place] [address] 04/17/2021 16:59:18 04/18/2021 16:23:51 Abnormal uterine bleeding 7729369703 9100 N93.9 Urinary symptoms 5000696 08 R39.9 36862 [facility] [address],[place] [address] 05/21/2021 09:39:38 05/21/2021 10:39:24 Abnormal uterine bleeding 1972509869 9100 N93.9 R10.2 18714 Ziyad Gilbert MD [facility] [address],[place] [address] 05/29/2021 16:04:21 05/29/2021 17:57:32 Dyspareunia 24820414 N94.10 this patient is a 20-year-ol d [...] s. She will follow-up in 2 months. [id number] [facility] [address],[place] [address] 09/26/2021 16:20:35 09/26/2021 16:56:17 Threatened miscarriage 22786460 O20.0 Z3A.01 40720 Kathy Beltránstevengarcia [facility] [address],[place] [address] 10/03/2021 13:53:09 10/03/2021 14:57:48 test positive 480158439 Z32.01 Risk factors addressed: Tobacco Cessation, Safe [...] annual well woman examinatio n and address [facility] . [address] [facility] [address],[place] [address] 10/03/2021 13:52:15 10/03/2021 14:43:14 [id number] [facility] [address],[place] [address] 11/04/2021 15:25:00 11/04/2021 16:14:43 screening 331771053 Z36.82 31131 Karen Kenyon MD [facility] [address],[place] [address] 11/04/2021 15:25:31 11/04/2021 19:01:17 Routine care 487315396 Z34.90 Past pregn jn history of gestational diabetes mellitus 019981498 Z86.32 Past pregn nj history of severe pre-eclampsia 240739362 Z87.59 [id number] Ziyad Gilbert MD [facility] [address] [place] [address] 12/09/2021 13:25:04 12/09/2021 14:15:18 Routine care 393468265 Z34.92 Vaginitis 75797413 N76.0 07616 [facility] [address],[place] [address] 01/03/2022 11:24:39 01/03/2022 12:47:49 Routine care 968751505 Z34.92 43309 Nesha Milton [facility] [address],[place] [address] 01/03/2022 11:24:13 01/03/2022 12:34:23 screening 350203048 Z36.3 [id number] Karen Kenyon MD [facility] [address],[place] [address] 01/31/2022 14:04:26 01/31/2022 14:49:06 Routine care 001329612 Z34.90 Past pregn jn history of severe pre-eclampsia 151938964 Z87.59 Past pregn jn history of gestational diabetes mellitus 787630716 Z86.32 [id number] Karen Kenyon MD [facility] [address],[place] [address] 02/28/2022 11:57:21 02/28/2022 12:31:58 Past history of gestational diabetes mellitus 384522528 Z86.32 Past pregn jn history of severe pre-eclampsia 623136373 Z87.59 [id number] Chinyere Chaparro CNM [facility] [address] [place] [address] 03/14/2022 11:21:17 03/14/2022 12:27:05 Routine care 143188013 Z34.92 [id number] Nesha Milton [facility] [address] [place] [address] 03/28/2022 11:30:09 03/28/2022 12:11:18 Past history of gestational diabetes mellitus 624787325 Z86.32 Z87.59 Z3A.32 [id number] Joy Newberry [facility] [address] [place] [address] 03/28/2022 11:31:31 03/28/2022 12:45:44 Past history of pre-eclampsia 8805927253 03002 Z87.59 [id number] Chinyere Chaparro CNM [facility] [address],[place] [address] 03/28/2022 11:31:54 03/28/2022 12:45:54 Routine care 966448988 Z34.92 [id number] [facility] [address],[place] [address] 04/04/2022 15:46:58 04/04/2022 17:08:55 Past history of gestational diabetes mellitus 764750967 Z86.32 Z87.59 Z3A.33 [id number] [facility] [address],[place] [address] 04/04/2022 15:47:45 04/04/2022 16:43:35 Gestational diabetes mellitus class A1 87373560 O24.410 [id number] Ziyad Gilbert MD [facility] [address],[place] [address] 04/04/2022 15:49:36 04/04/2022 17:01:59 Routine care 152293146 Z34.92 [id number] [facility] [address],[place] [address] 04/18/2022 14:02:57 04/18/2022 14:57:24 Past history of pre-eclampsia 0611951108 70572 Z87.59 [id number] [facility] [address],[place] [address] 04/18/2022 14:03:43 04/18/2022 15:28:15 Past history of gestational diabetes mellitus 048092312 Z86.32 O99.891 Z87.59 Z3A.35 [id number] Karen Kenyon MD [facility] [address],[place] [address] 04/18/2022 14:04:09 04/18/2022 15:55:55 Past history of severe pre-eclampsia 586454130 Z87.59 - induced hypertension 45017912 O13.9 [id number] Chinyere Chaparro [facility] [address],[place] [address] 04/25/2022 16:10:02 04/25/2022 16:34:01 Pre-eclampsia 773391904 O14.04 pt delivered HTN resolved, precaution s reviewed f/u 3 week pp visit [id number] Karen Kenyon MD [facility] [address],[place] [address] 06/09/2022 16:43:14 06/10/2022 13:02:51 care 920809731 Z39.2 Past pregn jn history of severe pre-eclampsia 648696458 Z87.59 [id number] Karen Kenyon MD [facility] [address],[place] [address] 07/21/2022 15:50:47 07/24/2022 12:47:43 Irregular periods 63926392 N92.6 Secondary amenorrhea 156 442152 N91.1 Pelvic floor tension 709 815336 R29.898 [id number] Karen Kenyon MD [facility] [address],[place] [address] 08/12/2022 17:10:07 08/13/2022 15:18:47 Gynecologic examination 74349540 Z01.419 Surveillan ce of oral contraception 358381054 Z30.41 Venereal d isease screening 089226061 Z11.3 [id number] ALL Gunn [facility] [address],[place] [address] 01/15/2023 16:12:01 01/15/2023 17:39:26 Vaginitis 76471534 N76.0 suspect yeastvagin itis panel sentSTI endocervic al testing sentvulvar care guidelines discussedr x sent, R/B/A discussed Venereal d isease screening 838552063 Z11.3 Dyspareunia 00284352 N94 .10 recommende d PFPT, she will [...] Walls Member ID Guarantor Name 04/25/2022 1 [facility] (MEDICAID HMO) [id number] 0003 Afshan Thebeau [id number] Afshan Thebeau 06/09/2022 1 [facility] (MEDICAID HMO) [id number] 0003 Afshan Thebeau [id number] Afshan Thebeau 07/21/2022 1 [facility] (MEDICAID HMO) [id number] 0003 Afshan Thebeau [id number] Afshan Thebeau 08/12/2022 1 [facility] (MEDICAID HMO) [id number] 0003 Afshan Thebeau [id number] Afshan Thebeau 01/15/2023 1 [facility] (MEDICAID HMO) [id number] 0003 Afshan Thebeau [id number] Afshan Thebeau Notes Date Note Type Note Provider Name and Address Organization Details Recorded Time 04/25/2022 text/html delivered for preeclampsia, was not put on meds post delivery, doing well, declines matthew, visual changes, epigastric pain, bp wnl Chinyere Chaparro CNM [address], [place], [address], [facility] 04/25/2022 16:26:24 06/09/2022 text/html Patient is a 21yo presenting for a 4 week visit. She had a on 04/19 at 35 weeks GA. Baby Vaughn was 6-10. severe PreE. off all BP meds after delivery. Denies MATTHEW/BV/EP. Rushing to get here after dropping baby off. Repeat BP improved. Doing well overall. bottlefeeding. Normal lochia. Pain- none. Bowel and bladder function normal. Panaca score 0Period-noAnnual due: nowConcerns: none Karen Kenyon MD [address], [place], [address], [facility] 06/10/2022 09:44:15 07/21/2022 text/html Afshan [...] constipation. Karen Kenyon MD [address], [place], [address], [facility] 07/28/2022 08:12:47 08/12/2022 text/html Patient [...] concerns- Karen Kenyon MD [address], [place], [address], [facility] 08/12/2022 18:00:20 01/15/2023 text/html 22yopresents for evaluation of vaginal d/c and itchingsymptoms started 1 week ago, clump d/coften gets yeast infectionspain with IC for the past 1 year, symptoms resolve shortly after IC is overno new partnersneg vaginal odorneg n/v/fneg urinary symptomsnormal bowel movementscondoms for BC - stopped OCPnot ALL Gunn [address], [place], [address], [facility] 01/15/2023 17:26:19 OBGyn Episode Ob Episode Information Episode Created Date Number of Fetuses Patient Bloodtype Patient rh Status Prepregnancy Weight lbs Domestic Partner Domestic Partner Phone Father Name Dumbwaiter Operator Status 01/10/20 20 1 O Positive 130 CLOSED Fetus Data First Name Last Name Admitted to NICU Weight (g) Sex Living Outcome Pediatric Complications Fetus ID Race Codes Race Delivery Type 2182.91 15 M true Prematur e 1146 Vaginal Delivery Problems Problem Notes LVEIF notedx2 Problem Name Start Date End Date Resolution Snomed Code Not e Nausea and vomiting 86086553 Back pain complicating 38954577 Dilatation of renal pelvis 729440386 06/07 LT - 7.1mm Gestational diabetes mellitus 55008717 Needs diet teac damaris byron Hypertensive disorder 20330577 Gestational hypertension Ahsan Calculation Initial Ahsan Date [...] Date Ultra Sound Latest Days Gestation 0 [email or web address] 01/10/2020 07/20/20 20 0 Pre-solitario Flowsheet Flowsheet [...] Weight in lbs Pre/Post Dialysis Refused Weight 132.780769667273 BP Diastolic BP Location Tested BP Systolic [...] Weight in lbs Pre/Post Dialysis Refused Weight 188.706233381751 BP Diastolic BP Location Tested BP Systolic BP Type 77 138 Fetus Heart Rate Present Fetus Movement Comments This patient was not seen by me on this date. Flowsheet Date 02/21/2020 Maynard Score Blood Edema Fundus Height Fundus Units Glucose Ketones Leukocytes Nitrite Labor Signs Protein Cervic Dilation Cervic Effacement Cervic Station Type Weight in lbs Pre/Post Dialysis Refused Weight 135.98955497518 BP Diastolic BP Location Tested BP Systolic [...] Weight in lbs Pre/Post Dialysis Refused Weight 138.437073617017 BP Diastolic BP Location Tested BP Systolic [...] Weight in lbs Pre/Post Dialysis Refused Weight 142.119138393637 BP Diastolic BP Location Tested BP Systolic [...] Weight in lbs Pre/Post Dialysis Refused Weight 147.090547435476 BP Diastolic BP Location Tested BP Systolic [...] Weight in lbs Pre/Post Dialysis Refused Weight 146.407970253156 BP Diastolic BP Location Tested BP Systolic BP Type 92 R arm 147 sitting Fetus Heart Rate Present A 145 Fetus Movement A Yes Comments Flowsheet Date 05/31/2020 Maynard Score Blood Edema Fundus Height Fundus Units Glucose Ketones Leukocytes Nitrite Labor Signs Protein Cervic Dilation Cervic Effacement Cervic Station neg trace trace Type Weight in lbs Pre/Post Dialysis Refused Weight 150.642085574110 BP Diastolic BP Location Tested BP Systolic [...] Weight in lbs Pre/Post Dialysis Refused Weight 149.082177181003 BP Diastolic BP Location Tested BP Systolic [...] Weight in lbs Pre/Post Dialysis Refused Weight 128.110121570165 BP Diastolic BP Location Tested BP Systolic [...] At Estimated Date of Delivery false Thalassemia (Citizen Of [place], Hungarian, Mediterranean, Or Background): MCV < 80 false Neural Tube Defect (Meningom yelocele, Spina Bifida, Or Anencephaly) false Congenital Heart Defect false Down Syndrome false Saeid-Sachs (eg, Mandaeism, Cajun, [place] Citizen-Togolese) f alse Sanford Disease false Sickle Cell [...] Sterilization Discharge Date Comments 0 34 true [email or web address] GDM , preeclamp usman Discharge Information Feeding Method Contraceptive Method Maternal HG B and HCT Levels Ob Episode Information Episode Created Date Number of Fetuses Patient Bloodtype Patient rh Status Prepregnancy Weight lbs Domestic Partner Domestic Partner Phone Father Name Dumbwaiter Operator Status 01/10/20 20 1 CLOSED Fetus Data [...] Domestic Partner Domestic Partner Phone Father Name Dumbwaiter Operator Status 06/15/20 20 1 DELETED Ahsan Calculation [...] Domestic Partner Domestic Partner Phone Father Name Dumbwaiter Operator Status 11/04/19 22 1 O Positive 112 CLOSED Fetus Data First Name Last Name Admitted to NICU Weight (g) Sex Living Outcome Pediatric Complications Fetus ID Race Codes Race Delivery Type 2721.55 2 M true Prematur e 69123 Vaginal Delivery Problems Problem Notes declines flu and COVID vacci rashard (has not had covid)NL labs, NIPT NL. 06/08/2020 neg CF/SMA Problem Name Start Date End Date Resolution Snomed Code Not e Past history of severe pre-eclampsia 723952453 deli gina at 34w. ASA, baseline labs, testing at 32w Past history of gestational diabetes mellitus 467036664 GCT at 20w, 28 if passes Subchorionic hematoma 09/26/2021 0095607 04 4.3x1.9x3.3cm Marijuana user [id number] +UDS Ahsan Calculation Initial Ahsan Date Initial [...] Date Ultra Sound Latest Days Gestation 0 [email or web address] 11/04/2021 05/23/20 22 0 Pre-solitario Flowsheet Flowsheet Date 11/04/2021 Maynard Score Blood Edema Fundus Height Fundus Units Glucose Ketones Leukocytes Nitrite Labor Signs Protein Cervic Dilation Cervic Effacement Cervic Station Type Weight in lbs Pre/Post Dialysis Refused Weight 114.252081407327 BP Diastolic BP Location Tested BP Systolic [...] Weight in lbs Pre/Post Dialysis Refused Weight 125.064792055340 BP Diastolic BP Location Tested BP Systolic [...] Weight in lbs Pre/Post Dialysis Refused Weight 127.272350045718 BP Diastolic BP Location Tested BP Systolic [...] Weight in lbs Pre/Post Dialysis Refused Weight 131.513045162038 BP Diastolic BP Location Tested BP Systolic [...] Weight in lbs Pre/Post Dialysis Refused Weight 137.232744373868 BP Diastolic BP Location Tested BP Systolic [...] Weight in lbs Pre/Post Dialysis Refused Weight 135.67243197081 BP Diastolic BP Location Tested BP Systolic [...] Weight in lbs Pre/Post Dialysis Refused Weight 135.49908638775 BP Diastolic BP Location Tested BP Systolic [...] Weight in lbs Pre/Post Dialysis Refused Weight 141.411799407393 BP Diastolic BP Location Tested BP Systolic [...] Weight in lbs Pre/Post Dialysis Refused Weight 137.290865340997 BP Diastolic BP Location Tested BP Systolic [...] Weight in lbs Pre/Post Dialysis Refused Weight 126.78384243758 BP Diastolic BP Location Tested BP Systolic [...] Estim ated Date of Delivery false Thalassemia (Citizen Of [place], Hungarian, Mediterranean, Or Background): MCV < 80 false Neural Tube Defect (Meningomyelocele, Spina Bifi da, Or Anencephaly) false Congenital Heart Defect false Down Syndrome false Saeid-Sachs (eg, Mandaeism, Cajun, [place] Citizen-Togolese) f alse Sanford Disease false Sickle Cell Disease Or Trait () false Hemophilia Or Other Blood Disorders false Muscular Dystrophy false Cystic Fibrosis false Rutherford's Chorea false Intellectual Disability/Autism false If Yes, [...]
[2024-12-08 19:20] VITALS: BP 126/83; PULSE 104; RESP 18; TEMP 37.2; O2SAT 99
--- NOTE | 2024-12-08 20:14 | ED_ITS ---
HPI - Dental/Oral General Chief complaint: Dental/Oral Stated complaint: Extraction today-extreme pain Time Seen by Provider: 12/08/24 19:24 History of Present Illness HPI Narrative: 24-year-old otherwise healthy female presenting to the emergency room with chief complaint of dental pain. She just had dental extraction of 2 molars earlier this morning by her dentist. She has been struck a take Tylenol ibuprofen but is having worsening pain. She knows that the area covering the teeth extractions is empty and there is no blood clot therapy. She thinks she has dry socket. Patient has had previous dental extractions without issue. Tried calling her dentist but was not given any medications to try her prescribed. Came to the ER as she was having worsening pain. No fever chills. No difficulty swallowing, states that pain feels better with direct pressure on the outside jaw. She has taken significant amounts of Tylenol ibuprofen without any help. Patient denies any other symptoms at this time. No active bleeding. She does change the gauze several times with minimal oozing from the extraction site. Not any kind of anticoagulation medications. No antibiotic use. Teeth map: 2 1. Evidence of recent dental extraction, no blood clots, no abscess Related Data Allergies Allergy/AdvReac Type Severity Reaction Status Date / Time No Known Allergies Allergy Verified 12/08/24 19:10 Review of Systems 2 Review of Systems: As reviewed above in HPI [facility] Past Medical History Medical History No active medical problems Social History Social History Smoking status: Current some day smoker Tobacco type: e-cigarettes/vaping Additional smoking assessment comments: patient reports occasional vaping with inconsistant schedule Substance use: former Gender identity (if verbalized by the patient): Female Spiritual care concerns: No Exam 2 Narrative: GENERAL: [Well-appearing, well-nourished, and in no acute distress.] HEAD: [Normocephalic, atraumatic.] EYES: [PERRLA and EOMI.] ENT: In the inferior mandibular jaw on the right side there are to recent dental extraction sites without any overlying blood clot and they appear open to the air. No active oozing or bleeding. No overlying skin changes or infection signs. No periapical abscess, change of irritation. No tenderness over the outside of the jaw, no trismus. NECK: Supple. CHEST: [Clear to auscultation. No respiratory distress.] HEART: [Regular rate and rhythm]. No murmur heard. [Normal peripheral pulses.] ABDOMEN: [Soft, nondistended], [nontender], [No rigidity or guarding] EXTREMITIES: Normal range of motion. [No edema.] SKIN: Warm, dry, no rash. NEURO: [No focal deficits]. Alert and oriented [x3.] PSYCH: [Normal mood and affect.] Course Vital Signs Vital signs: Vital Signs Temperature 37.2 C 12/08/24 19:20 Pulse Rate 104 H 12/08/24 19:20 Respiratory Rate 18 12/08/24 19:20 Blood Pressure 126/83 12/08/24 19:20 Pulse Oximetry 99 12/08/24 19:20 Temperature 37.2 C 12/08/24 19:20 Pulse Rate 104 H 12/08/24 19:20 Respiratory Rate 18 12/08/24 19:20 Blood Pressure 126/83 12/08/24 19:20 Pulse Oximetry 99 12/08/24 19:20 Procedures Nerve Block Nerve Block 1: Nerve block date: 12/08/24 Nerve block time: 20:47 Time out performed: Yes Local Anesthetic: bupivacaine 0.5% Amount of anesthesia used (mL): 3 Side: right Intraoral Nerve Block: inferior alveolar Procedure Successful: Yes Patient Tolerated Procedure: well and no complications Complications: none MDM - Dental/Oral MDM Narrative Medical decision making narrative: 24-year-old female presenting with tooth pain after 2 dental extractions earlier today. She is not any acute distress but does appear uncomfortable and in pain. She has evidence of potential dry socket, alveolar osteitis but no signs of active infection. There is no blood clot in the dental extraction sites and is open to the air likely causing her pain. She has tried Tylenol and ibuprofen without any relief. She is given oxycodone and penicillin here in the emergency department and a injection of ropivacaine for nerve block was conducted. Patient will have to go back to her dentist for definitive management. Patient had good analgesic effect after inferior alveolar nerve block. She was given penicillin and oxycodone. Will be prescribed as needed pain medications and antibiotics. Instructed to go to a dentist tomorrow morning which she verbalized understanding. Patient is safe for discharge. Medical Records Attestation: I reviewed the patient's medical records. Discharge Plan Discharge Clinical Impression: Dry socket, Dentalgia Patient Disposition: Home, Self-Care Condition: Stable Instructions: Antibiotic Form, Dry Socket (ED) Additional Instructions: We will send you home with pain medications and antibiotics. Contact your dentist for follow-up tomorrow morning. Return with any emergent concerns. Patient Language: Polish Prescriptions: New penicillin V potassium 500 mg tablet 500 mg PO QID 7 Days Qty: 28 0RF ibuprofen 600 mg tablet 600 mg PO TID PRN (Reason: pain) Qty: 20 0RF oxycodone 5 mg tablet 5 mg PO Q8H PRN (Reason: pain) Qty: 10 0RF No Action amoxicillin-pot clavulanate 875-125 mg tablet 1 tablet PO Q12H 7 Days Qty: 14 0RF oxycodone 5 mg tablet 5 mg PO Q8H PRN (Reason: pain) Qty: 14 0RF hydrocodone-acetaminophen 5-325 mg tablet 1 tablet PO Q8H PRN (Reason: pain) Qty: 14 0RF amoxicillin-pot clavulanate 875-125 mg tablet 1 tablet PO Q12H 10 Days Qty: 20 0RF Follow-up/Referrals: UNKNOWN,DOCTOR [Primary Care Provider] - Stand Alone Forms: Work/School Release IP Time of Disposition: 20:51
[2024-12-08] MEDS: PENICILLIN V POTASSIUM 250 MG TABLET 500 MG PO (20:26)
[2024-12-08] MEDS: oxyCODONE HCL (*CRX) 5 MG TAB IR PO (20:27)
== END 2024-12-08 21:28 | disposition home or self-care (01) ==
PROVIDERS: Emergency Provider Student in an Organized Health Care Education/Training Program
DX: M27.3 Alveolitis of jaws (principal); K08.89 Other specified disorders of teeth and supporting structures; F17.290 Nicotine dependence, other tobacco product, uncomplicated; Z98.818 Other dental procedure status
CPT/HCPCS: 64400; 99283; A9270

== ENCOUNTER 2024-12-17 18:17 | Emergency (ER) | payer OTHER, SELFPAY ==
[2024-12-17 18:18] VITALS: BP 135/75; PULSE 91; RESP 16; TEMP 36.2; O2SAT 100
--- OUTSIDE RECORDS SUMMARY | 2024-12-17 18:19 | XMS_ITS | Data Portability ---
Author Organization [facility] Address [address] [place] [address] [place] [address] Assessment Encounter Date Assessment Date Assessment LastModified by Organization Details LastModified Time 06/09/2022 06/09/2022 FU for exam Normal exam May resume normal activities contraceptive plan-- OCP. has a few packs left at home, will start with menses. FU for WWE 2 mos. [email or web address] Not available 06/10/2022 09:43:55 07/21/2022 07/21/2022 labs per below if no period in 1 mo, preg test and US hcg neg today declines contraception flexeril for pelvic muscle pain. discussed PT- pt declines for now. [email or web address] Not available 07/28/2022 08:12:22 08/12/2022 08/12/2022 healthy female exam GC/CT/trich done declines further std testing pap at 21 contraception-OC P. will call when needs refills. HPV vaccine done FU 1 year or prn Not available 08/12/2022 18:00:04 Plan of Treatment Reminders Order Date Submit Date Provider Last Modified By Organization Details Last Modified Time Details Appointments None recorded . Lab pregnanc y test, urine 2021 022 [facility], [address], [place], [address], 05:00:50 testoste yari, free + total, serum 2021 022 [facility] (Lab), [address], [place], [address], 21:11:53 dhea-sul fate, serum 2021 [facility] (Lab), [address], [place], [address], 21:11:50 estradio l, serum 2021 [facility] (Lab), [address], [place], [address], 21:11:51 FSH (follicl e-stimul ating hormone) , serum 2021 [facility] (Lab), [address], [place], [address], 21:11:51 HbA1c (hemoglo bin A1c), blood 2021 [facility] (Lab), [address], [place], [address], 21:11:52 prolacti n, serum 2021 [facility] (Lab), [address], [place], [address], 21:11:52 TSH, serum or plasma 2021 [facility] (Lab), [address], [place], [address], 21:11:52 Referral None recorded . Procedures None recorded . Surgeries None recorded . Imaging US, pelvis, complete 2022 023 [facility] [place], [address], [place], [address], 3 14:57:16 Medication Orders fluconaz ole 150 mg tablet 2022 023 [id number], [address], [place], [place], [id number], 16:48:39 francesca zaprine 10 mg tablet 2021 [id number], [address], [place], [place], [id number], 2 16:29:21 Patient TargetsNo targets recorded. Patient [...] > 75 12-15 4 Not Available [facility] (Lab) [address] , [place], [address], 07/25/2022 21:11:50 07/21/20 22 07/21/2022 ESTRA DIOL [...] 561-2 1280 pg/mL 3rd Trime ster8 525-> 76600 pg/mL Not Available [facility] (Lab) [address], [place], [address], 07/25/2022 21:11:51 07/21/20 22 07/21/2022 FSH FSH 6.3 mIU/m L This assay was perfo rmed using [employer] ratio n reage nts and test kits. Value s obtai zion with other assay metho ds or kits canno t be used inter [facility] sita . Femal es Folli cular : 3.5-1 2.5 mIU/m L Ovula tion: 4.7-2 1.5 mIU/m L Lutea l: 1.7-7 .7 mIU/m L Postm enopa use: 25.8- 134.8 mIU/m L Not Available [facility] (Lab) [address], [place], [address], 07/25/2022 21:11:51 07/21/20 22 07/21/2022 PROLA CTIN prolactin, total 28.80 NG/mL 4.79-2 3.30 high This assay was perfo rmed using [employer] reage nts and test kits. Value s obtai zion with other assay metho ds or kits canno t be used inter [facility] . Not Available [facility] (Lab) [address] [place], [address], 07/25/2022 21:11:52 07/21/20 22 07/21/2022 HEMOG LOBIN [...] Actio n sugge sted Not Available [facility] (Lab) [address], [place], [address], 07/25/2022 21:11:52 07/21/20 22 07/21/2022 TSH, REFLE X FREE T4 TSH 0.89 uIU/m L 0.30-5 .33 Not Available [facility] (Lab) [address], [place], [address], 07/25/2022 21:11:52 07/21/20 22 07/21/2022 TESTO STERO NE, FREE, DIREC T WITH TOTAL testosterone , serum 25 NG/dL Not Available [facility] (Lab) [address], [place], [address], 07/25/2022 21:11:53 07/21/20 22 07/21/2022 TESTO STERO NE, FREE, DIREC T WITH TOTAL free testosterone (direct) 0.6 pg/mL 0.0-4. 2 Perfo rmed at: 01 - [facility] [address] [place] [address] Lab Direc tor: Ubaldo morris PhD, Phone : [phone] Perfo rmed at: 02 - [facility] [address] [place] [address] Lab Direc tor: Mildred sofia MD, Phone : [phone] Not Available [facility] (Lab) [address], [place], [address], 07/25/2022 21:11:53 08/12/20 22 08/12/2022 CT/GC AND TRICH OMONA S VAGIN SIMIN (RRNA ), SWAB chlamydia trachomatis, PCR Negati ve negati ve Not Available [facility] (Lab) [address], [place], [address], 08/13/2022 13:41:58 08/12/20 22 08/12/2022 CT/GC AND TRICH OMONA S VAGIN SIMIN (RRNA ), SWAB neisseria gonorrhoeae, PCR Negati ve negati ve Not Available [facility] (Lab) [address], [place], [address], 08/13/2022 13:41:58 08/12/20 22 08/12/2022 CT/GC AND TRICH OMONA S VAGIN SIMIN (RRNA ), SWAB trichomonas vaginalis ribosomal RNA (rrna) Negati ve negati ve Not Available [facility] (Lab) [address], [place], [address], 08/13/2022 13:41:58 03/28/20 22 03/28/2022 US, obste tric, follo w-up No observ ation record ed. [email or web address] [place] [address], [place], [address], 03/28/2022 12:07:11 03/28/20 22 03/28/2022 US, obste tric, bioph ysica l profi le + non-s tress test No observ ation record ed. [email or web address] [place] [address], [place], [address], 03/28/2022 12:07:21 03/28/20 22 03/28/2022 US, obste tric, follo w-up No observ ation record ed. [email or web address] [address], [place], [address], 03/28/2022 19:29:15 03/28/20 22 03/28/2022 non-s tress test No observ ation record ed. [email or web address] [place] [address], [place], [address], 03/28/2022 19:04:07 04/04/20 22 04/04/2022 US, obste tric, follo w-up No observ ation record ed. [email or web address] [address], [place], [address], 04/06/2022 23:43:16 04/04/20 22 04/04/2022 non-s tress test No observ ation record ed. [email or web address] [place] [address], [place], [address], 04/04/2022 16:41:20 04/04/20 22 04/04/2022 US, obste tric, bioph ysica l profi le + non-s tress test No observ ation record ed. [email or web address] [place] [address], [place], [address], 04/04/2022 17:27:54 04/10/20 22 04/10/2022 US, obste tric, follo w-up No observ ation record ed. [address] [facility], [place], [address], 04/18/2022 00:13:11 04/10/20 22 04/10/2022 US, obste tric, follo w-up No observ ation record ed. [address] [facility], [place], [address], 04/10/2022 21:48:57 04/18/20 22 04/18/2022 non-s tress test No observ ation record ed. [email or web address] [place] [address], [place], [address], 04/18/2022 14:44:39 04/18/20 22 04/18/2022 US, obste tric, bioph ysica l profi le + non-s tress test No observ ation record ed. [email or web address] [place] [address], [place], [address], 04/18/2022 15:17:06 04/18/20 22 04/18/2022 US, obste tric, bioph ysica l profi le + non-s tress test No observ ation record ed. [email or web address] [address], [place], [address], 03/17/2023 11:09:01 Result Notes None recorded. Problems Name Problem SNOMED Code Status Onset Date Resolution Date Notes Provider Name and Address Organization Details Recorded Time Villa bletre user [id number] Completed 201904/15/2021 need rpt UDS Silvana Sosa [facility], [facility] 1 17:25:23 Nausea and vomiting 37551038 Completed Elenita Moyer [facility], [facility] 0 12:24:13 Back pain complica ting pregnanc y 44753746 Completed Elenita Moyer [facility], [facility] 0 12:24:13 Dilatati on of renal pelvis 859022681 Completed 06/07 LT - 7.1mm Elenita Moyer [facility], [facility] 0 12:24:13 Smoker 33524806 Completed 201904/15/2021 vaping Silvana Sosa [facility], [facility] 1 17:25:26 Gestatio nal diabetes mellitus 17643636 Completed Needs diet teaching byron Elenita Moyer [facility], [facility] 0 12:24:13 Hyperten sive disorder 12250150 Completed Gestatio nal hyperten italo Elenita Moyer [facility], [facility] 0 12:24:13 labor with delivery 7890487460 6511665 Completed 201904/15/2021 Karen Kenyon MD [address], [place], [address], [place] [facility] 2 19:00:13 Syphilis test finding 268156858 Completed 11/12/ 2019 04/15/2021 Encntr screen for infectio ns w sexl mode of transmis s;Practi ce ID: 0001 Silvana pan [facility] 17:25:22 Pelvic and perineal pain 595946550 Completed 201804/15/2021 Pelvic and perineal pain;Pra ctice ID: 0001 Silvana pan [facility] 17:25:16 Pregnanc y test negative 436561956 Completed 201804/15/2021 Encounte r for pregnanc y test, result negative ;Practic e ID: 0001 Silvana pan [facility] 17:25:15 Acute vaginiti s 24184887 Completed 201904/15/2021 Acute vaginiti s;Practi ce ID: 0001 Silvana pan, [facility] 17:25:13 Finding of regulari ty of menstrua l cycle Completed 201804/15/2021 Irregula r period;R ecorded Elsewher e: No Locat ion: [facility] S ource: EHR [employer] brady: N Practi ce ID: 0001 Ney lable Time: 02:30:00 PM Silvana pan [facility] 17:25:08 Secondar y dysmenor tessie 71302089 Completed 201804/15/2021 Secondar y dysmenor tessie;Rec orded Elsewher e: No Locat ion: [facility] S ource: [employer] brady: N Practi ce ID: 0001 Ney lable Time: 01:30:00 PM Silvana pan [facility] 17:25:18 Educatio n Completed 201804/15/2021 Encounte r for other general counseli ng and advice on contrace ption;Re corded Elsewher e: No Locat ion: [facility] S ource: [employer] brady: N Practi ce ID: 0001 Ney lable Time: 01:30:00 PM Silvana pan, [facility] 1 17:25:20 Infectio n screenin g Completed 201804/15/2021 Encounte r for screenin g for oth infec/pa rastc diseases ;Recorde d Elsewher e: No Locat ion: [facility] S ource: E[employer] brady: N Practi ce ID: 0001 Ney lable Time: 12:26:55 PM Silavna pan, [facility] 1 17:25:10 Gonorrhe a of lower genitour inary tract 3546732018 6429877 Completed 201804/15/2021 Gonococc al infectio n of lower genitour inary tract, unsp;Rec orded Elsewher e: No Locat ion: [facility] S ource: EHR [employer] brady: N Practi ce ID: 0001 Ney lable Time: 04:00:00 PM Silvana Sosa viviane, [facility] 1 17:25:06 labor with delivery [id number] 7148002 Completed 202111/04/2021 Karen Kenyon MD [address], [place], [address], [facility] 2 19:00:13 Pregnanc y 79435563 Completed 202105/19/2022 Sherine pan, [facility] 2 14:17:19 Villa beltre user 246169229 Completed +UDS Sherine pan, [facility] 2 14:17:12 Past pregnanc y history of severe pre-ecla mpsia 492692154 Active delivere d at 34w. ASA, baseline labs, antenata l testing at 32w Sherine Vasquezh l null, [facility] 2 14:17:12 Past pregnanc y history of gestatio nal diabetes mellitus 007675544 Active GCT at 20w, 28 if passes Sherinecheri Barrytieh l null, [facility] 2 14:17:11 Past pregnanc y history of severe pre-ecla mpsia 277928810 Completed delivere d at 34w. ASA, baseline labs, antenata l testing at 32w Sherine Vasquezh l null, [facility] 2 14:17:12 Past pregnanc y history of gestatio nal diabetes mellitus 055222867 Completed GCT at 20w, 28 if passes Sherine Barrytieh l null, [facility] 2 14:17:11 Subchori onic hematoma 444931946 Completed 2021 4.3x1.9x 3.3cm Sherine Xie l null, [facility] 2 14:17:12 Corpus luteum cyst 327895880 Completed 2021 25mm rt Karen Kenyon MD [address], [place], [address], [place] [facility] 2 14:28:09 Pregnanc y 89671656 Completed 201907/16/2020 Sherine Barrytieh l null, [facility] 2 14:17:19 Problem Notes None recorded. Procedures Surgical History None recorded. Imaging Results Imaging Date Name Status LastModified by Organiz ation Details LastModified Time 03/28/2022 US, obstetric, follow-up completed [email or web address] [place] [address], [place], [address], 03/28/2022 12:07:11 03/28/2022 US, obstetric, biophysical profile + non-stress test [facility] [place] [address] [address], [place], [address], 03/28/2022 12:07:21 03/28/2022 US, obstetric, follow-up completed [email or web address] [address], [place], [address], 03/28/2022 19:29:15 03/28/2022 non-stress test [place] [email or web address] [place] [address] [address], [place], [address], 03/28/2022 19:04:07 04/04/2022 US, obstetric, follow-up completed [facility] [address], [place], [address], 04/06/2022 23:43:16 04/04/2022 non-stress test [facility] [place] [address] [address], [place], [address], 04/04/2022 16:41:20 04/04/2022 US, obstetric, biophysical profile + non-stress test [facility] [place] [address] [address], [place], [address], 04/04/2022 17:27:54 04/10/2022 US, obstetric, follow-up completed [address], [place], [address], 04/18/2022 00:13:11 04/10/2022 US, obstetric, follow-up completed [address], [place], [address], 04/10/2022 21:48:57 04/18/2022 non-stress test completed [facility] [address], [place], [address], 04/18/2022 14:44:39 04/18/2022 US, obstetric, biophysical profile + non-stress test completed [email or web address] [place] [address], [place], [address], 04/18/2022 15:17:06 04/18/2022 US, obstetric, biophysical profile + non-stress test completed [email or web address] [address], [place], [address], 03/17/2023 11:09:01 Procedure Notes None recorded. Medical [...] Elsewher e: No Locat ion: Rosana mark [facility] M odify By: romeo Mark ncounter [...] Elsewher e: No Locat ion: Bevdolores [facility] odify By: [email or web address] ich Enco unter [...] Prescrib ed Elsewher e: No Locat ion: [facility] odify By: romeo pollardunter DateTime : [...] Address Organization Details Last Updated DateTime 04/25/2022 75183.41713 g Sherine Arreguin [facility] 05/19/2022 14:17:15 Date Recorded Body height Body mass index (BMI) Percentile per age and sex Body mass index (BMI) Body weight Systolic blood pressure Diastolic blood pressure Systolic blood pressure Diastolic blood pressure Provider Name and Address Organization Details Last Updated DateTime 2 165.1 cm 40 % 21 kg/m2 80334.6 4 g 158 mm[Hg] 90 mm[Hg] 148 mm[Hg] 72 mm[Hg] Michelle Ch [facility] 2 16:47:53 Date Recorded Systolic blood pressure Diastolic blood pressure Provider Name and Address Organization Details Last Updated DateTime 06/09/2022 126 mm[Hg] 78 mm[Hg] Karen Kenyon MD [address], [place], [address], [facility] 06/09/2022 17:39:47 Date Recorded Body height Body mass index (BMI) Percentile per age and sex Body mass index (BMI) Body weight Systolic blood pressure Diastolic blood pressure Provider Name and Address Organization Details Last Updated DateTime 2 165.1 cm 31 % 20.3 kg/m2 99851.2 7 g 122 mm[Hg] 62 mm[Hg] Michelle Ch [facility] 2 15:57:27 Date Recorded Body height Body mass index (BMI) Body mass index (BMI) Percentile per age and sex Body weight Systolic blood pressure Diastolic blood pressure Provider Name and Address Organization Details Last Updated DateTime 2 165.1 cm 19.6 kg/m2 22 % 91656.9 g 135 mm[Hg] 81 mm[Hg] Michelle Ch [...] Type Of Diet Are You Following? REGULAR [email or web address] Information not available 01/03/2022 Which Illicit Or Recreational Drugs Have You Used? Marijuana [email or web address] Information not available 06/09/2022 Do You Or Have You Ever Used E-cigarettes Or Vape? Current User Of Electronic Cigarettes [email or web address] Information not available 06/09/2022 What Is The Highest Grade Or Level Of School You Have Completed Or The Highest Degree You Have Received? 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 No Information not available 05/29/2021 What Was The Date Of Your Most Recent Tobacco Screening? 04/25/2022 [email or web address] Information not available 06/09/2022 Do You Use Protection During Sex? No Information not available 05/29/2021 Do You Use Your Seat Belt Or Car Seat Routinely? Yes Information not available 05/29/2021 Do You Have Smoke And Carbon Monoxide Detectors In Your Home? Yes Information not available 05/29/2021 Do You Or Have You Ever Used Smokeless Tobacco? Never Used Smokeless Tobacco [email or web address] Information not available 06/09/2022 How Much Tobacco Do You Smoke? No Information not available 05/29/2021 Do You Feel Stressed (tense, Restless, Nervous, Or Anxious, Or Unable To Sleep At Night)? [id number] Information not available 05/29/2021 Do You Use Any Illicit Or Recreational Drugs? No Information not available 05/29/2021 Do You Use Sunscreen Routinely? Yes Information not available 05/29/2021 Have You Used IV Drugs? No Information not available 05/29/2021 Sex: Unknown Functional Status Question Answer Note LastModified by Organizat ion Details LastModified Time Do you have difficulty walking or climbing stairs? No [email or web address] Information not available 06/09/2022 Are you able to walk? YESWOREST Information not available 05/29/2021 Are you able to care for yourself? Yes [email or web address] Information not available 06/09/2022 Do you have difficulty dressing or bathing? No [email or web address] Information not available 06/09/2022 What is your exercise level? Occasional jgumber Information not available 12/20/2019 Mental Status None recorded. Family History Relationship Description Onset Age of this Age Resolved Age Notes LastModified by Organization Details LastModified Time Mother Anemia [email or web address] Not available 05/21/2021 09:39:48 Mother History of malignant neoplasm of cervix [email or web address] Not available 2021 16:43:30 Mother Family history of blood coagulation disorder [email or web address] Not available 2021 16:43:30 Mother Hypertensive disorder jgumber Not available 2019 17:53:51 Mother Hyperlipidem ia [email or web address] Not available 2021 16:43:30 Mother Multiple sclerosis jgumber Not available 2019 17:54:52 Father Hypertensive disorder jgumber Not available 2019 17:55:04 Maternal Grandmother Asthma [email or web address] Not available 05/08 09:39:48 Maternal Grandmother Congenital prolapsed uterus Prolap sed uterus [email or web address] Not available 06/09/2022 16:43:30 Paternal Grandmother Congenital heart disease Not available 2021 16:43:30 Paternal Grandmother Family history of malignant neoplasm of lung [email or web address] Not available 2021 16:43:30 Maternal Grandfather Congenital heart disease [email or web address] Not available 2021 16:43:30 Maternal Grandfather Hypertensive disorder jgumber Not available 2019 17:57:21 Maternal Grandfather Hyperlipidem ia [email or web address] Not available 2021 16:43:30 Maternal Grandfather Diabetes mellitus jgumber Not available 2019 17:57:57 Maternal Grandfather Family history of breast cancer [email or web address] Not available 2021 16:43:30 Maternal Aunt Hypertensive disorder jgumber Not available 2019 17:57:09 Maternal Aunt Congenital prolapsed uterus [email or web address] Not available 2021 16:43:30 Maternal Aunt Hyperlipidem ia Not available 2021 16:43:30 Maternal Aunt Diabetes mellitus jgumber Not available 2019 17:59:33 Maternal Aunt Family history of breast cancer [email or web address] Not available 2021 16:43:30 Sister Anemia [email or web address] Not available 05/21/2021 09:39:48 Maternal Uncle Family history of breast cancer [email or web address] Not available 2021 16:43:30 Maternal Uncle Family history of malignant neoplasm of lung [email or web address] Not available 2021 16:43:30 Medical History Condition [...] ICD10 Code Diagnosis Note 739 Kathy Grover [place] [address] [address] 12/20/2019 14:54:00 12/21/2019 14:55:38 test positive 242350775 Z32.01 3068 Stephanie Le [place] [address] [address] 01/10/2020 10:29:11 01/10/2020 11:41:18 screening 132239355 Z36.82 Z36.0 Z36.89 [address] [facility] [address],[place] [address] 01/10/2020 10:29:56 01/10/2020 12:03:29 Normal 99532832 Z34.91 6244 Ziyad Gilbert MD [place] [address],[place] [address] 02/07/2020 13:58:06 02/07/2020 21:22:25 screening 050154196 Z36.82 Z36.0 Z36.89 6245 [facility] [address],[place] [address] 02/07/2020 13:58:59 02/07/2020 16:21:27 [address] [facility] [address],[place] [address] 02/21/2020 15:02:06 02/21/2020 16:52:02 Dizziness 721051611 R42 Likely due to low blood pressure, most likely from dehydratio n. Could have been hypoglycem ia as well. I advised her to drink lots of water and non-caffei nated beverages and eat frequent small meals or snacks. Avoid sudden positional changes. Bleeding from nose 67663 6005 R04.0 Check platelet count [id number] Stephanie Le [place] [address],[place] [address] 03/06/2020 14:52:53 03/06/2020 16:27:16 screening for malformation 812869298 Z36.3 [id number] Ziyad Gilbert MD [place] [address],[place] [address] 03/09/2020 11:04:50 03/09/2020 12:43:22 Nausea and vomiting 12238251 R11.2 Low back pain 081204967 M54.5 Routine an tenatal care 633353108 Z34.92 [id number] [facility] [address],[place] [address] 04/03/2020 16:29:02 04/03/2020 17:06:41 screening 758593652 Z36.2 [id number] BLAZE DuranM [place] [address],[place] [address] 04/03/2020 16:29:25 04/03/2020 17:37:00 Routine care 343769593 Z34.92 [id number] [facility] [address],[place] [address] 05/03/2020 11:32:25 05/03/2020 12:15:03 condition affecting obstetrical care of mother 649895405 O35.8XX0 Z3A.28 49504 Chinyere Chaparro [facility] [address],[place] [address] 05/03/2020 11:33:32 05/06/2020 12:38:28 Routine care 224053091 Z34.92 [id number] [facility] [address],[place] [address] 05/17/2020 16:53:30 05/17/2020 17:58:01 Polyhydramnios 41921516 O40.3XX0 Z3A.30 87451 Ziyad Gilbert MD [place] [address],[place] [address] 05/18/2020 13:53:20 05/18/2020 14:44:04 Routine care 594465859 Z34.92 [id number] [facility] [address],[place] [address] 05/31/2020 12:30:59 05/31/2020 13:53:51 [id number] [facility] [address],[place] [address] 05/31/2020 13:58:01 05/31/2020 15:13:25 Gestational diabetes mellitus 38498691 O24.410 O35.8XX0 O16.3 O40.3XX0 Z3A.32 13341 [facility] [address] [address],[place] [address] 06/04/2020 16:05:16 06/07/2020 14:40:00 Routine care [id number] Z34.93 [id number] Sherine Vasquez [facility] [address],[place] [address] 06/04/2020 16:05:31 06/04/2020 16:54:09 Gestational diabetes mellitus class A1 09735264 O24.410 [id number] Joy Newberry [place] [address],[place] [address] 1 06/04/2020 16:57:58 06/04/2020 17:57:34 Gestational diabetes mellitus 09531864 O24.410 O35.8XX0 O16.3 O40.3XX0 Z3A.32 Pt here [...] and pt verbalized understand ing. ANA fuentes [id number] [facility] [address],[place] [address] 06/07/2020 16:03:08 06/07/2020 17:01:59 Polyhydramnios 99587297 O40.3XX0 Z3A.33 [id number] Ziyad Gilbert MD [place] [address],[place] [address] 06/07/2020 16:03:41 06/11/2020 11:16:31 Gestational diabetes mellitus class A1 76845282 O24.410 [id number] [facility] [address],[place] [address] 06/22/2020 09:35:00 06/22/2020 10:39:13 -induced hypertension 71564024 O13.9 Contracept ion care management 282209940 Z30.9 [id number] [facility] [address],[place] [address] 07/17/2020 12:24:04 07/17/2020 17:11:54 state 26691812 Z39.2 [id number] Ziyad Gilbert MD [place] [address],[place] [address] 1 04/17/2021 16:59:18 04/18/2021 16:23:51 Abnormal uterine bleeding 6642567659 9100 N93.9 Urinary symptoms 9085419 08 R39.9 [id number] [facility] [address],[place] [address] 05/21/2021 09:39:38 05/21/2021 10:39:24 Abnormal uterine bleeding 9926715910 9100 N93.9 R10.2 [id number] Ziyad Gilbert MD [place] [address],[place] [address] 1 05/29/2021 16:04:21 05/29/2021 17:57:32 Dyspareunia 22239702 N94.10 this patient is a 20-year-ol d [...] s. She will follow-up in 2 months. [id number] [facility] [address],[place] [address] 09/26/2021 16:20:35 09/26/2021 16:56:17 Threatened miscarriage 94096094 O20.0 Z3A.01 [id number] Kathy Beltránstevengarcia [place] [address],[place] [address] 10/03/2021 13:53:09 10/03/2021 14:57:48 test positive 014377188 Z32.01 Risk factors addressed: Tobacco Cessation, Safe [...] annual well woman examinatio n and address [facility] . [id number] [facility] [address],[place] [address] 10/03/2021 13:52:15 10/03/2021 14:43:14 [id number] [facility] [address],[place] [address] 1 11/04/2021 15:25:00 11/04/2021 16:14:43 screening 672968002 Z36.82 [id number] Karen Kenyon MD [place] [address],[place] [address] 1 11/04/2021 15:25:31 11/04/2021 19:01:17 Routine care 827240396 Z34.90 Past pregn jn history of gestational diabetes mellitus 523362512 Z86.32 Past pregn jn history of severe pre-eclampsia 733463129 Z87.59 [id number] Ziyad Gilbert MD [place] [address] [place] [address] 12/09/2021 13:25:04 12/09/2021 14:15:18 Routine care 847357345 Z34.92 Vaginitis 59091596 N76.0 [id number] [facility] [address],[place] [address] 01/03/2022 11:24:39 01/03/2022 12:47:49 Routine care 686095410 Z34.92 [id number] Nesha Milton [place] [address],[place] [address] 1 01/03/2022 11:24:13 01/03/2022 12:34:23 screening 095009670 Z36.3 [id number] Karen Kenyon MD [place] [address],[place] [address] 1 01/31/2022 14:04:26 01/31/2022 14:49:06 Routine care 135577295 Z34.90 Past pregn jn history of severe pre-eclampsia 996014455 Z87.59 Past pregn jn history of gestational diabetes mellitus 581632820 Z86.32 [id number] Karen Kenyon MD [place] [address],[place] [address] 02/28/2022 11:57:21 02/28/2022 12:31:58 Past history of gestational diabetes mellitus 668969440 Z86.32 Past pregn jn history of severe pre-eclampsia 137212800 Z87.59 [id number] Chinyere Chaparro CNM [place] [address] [place] [address] 03/14/2022 11:21:17 03/14/2022 12:27:05 Routine care 632247151 Z34.92 [id number] Nesha Milton [place] [address] [place] [address] 1 03/28/2022 11:30:09 03/28/2022 12:11:18 Past history of gestational diabetes mellitus 369997605 Z86.32 Z87.59 Z3A.32 [id number] Joy Newberry [place] [address] [place] [address] 03/28/2022 11:31:31 03/28/2022 12:45:44 Past history of pre-eclampsia 6730804980 33860 Z87.59 [id number] Chinyere Chaparro CNM [place] [address],[place] [address] 1 03/28/2022 11:31:54 03/28/2022 12:45:54 Routine care 753117849 Z34.92 [id number] [facility] [address],[place] [address] 04/04/2022 15:46:58 04/04/2022 17:08:55 Past history of gestational diabetes mellitus 887138311 Z86.32 Z87.59 Z3A.33 [id number] [facility] [address],[place] [address] 04/04/2022 15:47:45 04/04/2022 16:43:35 Gestational diabetes mellitus class A1 16605719 O24.410 [id number] Ziyad Gilbert MD [place] [address],[place] [address] 1 04/04/2022 15:49:36 04/04/2022 17:01:59 Routine care 941571788 Z34.92 [id number] [facility] [address],[place] [address] 1 04/18/2022 14:02:57 04/18/2022 14:57:24 Past history of pre-eclampsia 1119836554 13338 Z87.59 [id number] [facility] [address],[place] [address] 1 04/18/2022 14:03:43 04/18/2022 15:28:15 Past history of gestational diabetes mellitus 327311194 Z86.32 O99.891 Z87.59 Z3A.35 [id number] Karen Kenyon MD [place] [address],[place] [address] 04/18/2022 14:04:09 04/18/2022 15:55:55 Past history of severe pre-eclampsia 962608418 Z87.59 - induced hypertension 12037544 O13.9 [id number] Chinyere Chaparro [facility] [address],[place] [address] 04/25/2022 16:10:02 04/25/2022 16:34:01 Pre-eclampsia 755905839 O14.04 pt delivered HTN resolved, precaution s reviewed f/u 3 week pp visit [id number] Karen Kenyon MD [place] [address],[place] [address] 06/09/2022 16:43:14 06/10/2022 13:02:51 care 337572439 Z39.2 Past pregn jn history of severe pre-eclampsia 871231890 Z87.59 [id number] Karen Kenyon MD [place] [address],[place] [address] 1 07/21/2022 15:50:47 07/24/2022 12:47:43 Irregular periods 67946372 N92.6 Secondary amenorrhea 156 640417 N91.1 Pelvic floor tension 709 443284 R29.898 [id number] Karen Kenyon MD [place] [address],[place] [address] 08/12/2022 17:10:07 08/13/2022 15:18:47 Gynecologic examination 29620887 Z01.419 Surveillan ce of oral contraception 291635505 Z30.41 Venereal d isease screening 978957226 Z11.3 [id number] ALL Gunn [place] [address],[place] [address] 01/15/2023 16:12:01 01/15/2023 17:39:26 Vaginitis 19995813 N76.0 suspect yeastvagin itis panel sentSTI endocervic al testing sentvulvar care guidelines discussedr x sent, R/B/A discussed Venereal d isease screening 178528089 Z11.3 Dyspareunia 54609277 N94 .10 recommende d PFPT, she will [...] Walls Member ID Guarantor Name 04/25/2022 1 [facility] (MEDICAID HMO) [id number] 0003 Afshan Thebeau [id number] Afshan Thebeau 06/09/2022 1 [facility] (MEDICAID HMO) [id number] 0003 Afshan Thebeau [id number] Afshan Thebeau 07/21/2022 1 [facility] (MEDICAID HMO) [id number] 0003 Afshan Thebeau [id number] Afshan Thebeau 08/12/2022 1 [facility] (MEDICAID HMO) [id number] 0003 Afshan Thebeau [id number] Afshan Thebeau 01/15/2023 1 [facility] (MEDICAID HMO) [id number] 0003 Afshan Thebeau [id number] Afshan Thebeau Notes Date Note Type Note Provider Name and Address Organization Details Recorded Time 04/25/2022 text/html delivered for preeclampsia, was not put on meds post delivery, doing well, declines matthew, visual changes, epigastric pain, bp wnl Chinyere Chaparro CNM [address], [place], [address], [facility] 04/25/2022 16:26:24 06/09/2022 text/html [...] Pain- none. Bowel and bladder function normal. [place] score 0Period-noAnnual due: nowConcerns: none Karen Kenyon MD [address], [place], [address], [facility] 06/10/2022 09:44:15 07/21/2022 text/html [...] constipation. Karen Kenyon MD [address], [place], [address], [facility] 07/28/2022 08:12:47 08/12/2022 text/html [...] concerns- Karen Kenyon MD [address], [place], [address], [facility] 08/12/2022 18:00:20 01/15/2023 text/html 22yopresents for evaluation of vaginal d/c and itchingsymptoms started 1 week ago, clump d/coften gets yeast infectionspain with IC for the past 1 year, symptoms resolve shortly after IC is overno new partnersneg vaginal odorneg n/v/fneg urinary symptomsnormal bowel movementscondoms for BC - stopped OCPnot ALL Gunn [address], [place], [address], [facility] 01/15/2023 17:26:19 OBGyn Episode Ob Episode Information Episode Created Date Number of Fetuses Patient Bloodtype Patient rh Status Prepregnancy Weight lbs Domestic Partner Domestic Partner Phone Father Name Structural Iron Worker Status 01/10/20 20 1 O Positive 130 CLOSED Fetus Data First Name Last Name Admitted to NICU Weight (g) Sex Living Outcome Pediatric Complications Fetus ID Race Codes Race Delivery Type 2182.91 15 M true Prematur e 1146 Vaginal Delivery Problems Problem Notes LVEIF notedx2 Problem Name Start Date End Date Resolution Snomed Code Not e Nausea and vomiting 29662438 Back pain complicating 31746158 Dilatation of renal pelvis 438822040 06/07 LT - 7.1mm Gestational diabetes mellitus 51222388 Needs diet teac damaris byron Hypertensive disorder 64863875 Gestational hypertension Ahsan Calculation Initial Ahsan Date [...] Date Ultra Sound Latest Days Gestation 0 [email or web address] 01/10/2020 07/20/20 20 0 Pre-solitario Flowsheet Flowsheet [...] Weight in lbs Pre/Post Dialysis Refused Weight 132.699397883626 BP Diastolic BP Location Tested BP Systolic [...] Weight in lbs Pre/Post Dialysis Refused Weight 188.566555376498 BP Diastolic BP Location Tested BP Systolic BP Type 77 138 Fetus Heart Rate Present Fetus Movement Comments This patient was not seen by me on this date. Flowsheet Date 02/21/2020 Maynard Score Blood Edema Fundus Height Fundus Units Glucose Ketones Leukocytes Nitrite Labor Signs Protein Cervic Dilation Cervic Effacement Cervic Station Type Weight in lbs Pre/Post Dialysis Refused Weight 135.94806241052 BP Diastolic BP Location Tested BP Systolic [...] Weight in lbs Pre/Post Dialysis Refused Weight 138.937240780365 BP Diastolic BP Location Tested BP Systolic [...] Weight in lbs Pre/Post Dialysis Refused Weight 142.688985641770 BP Diastolic BP Location Tested BP Systolic [...] Weight in lbs Pre/Post Dialysis Refused Weight 147.972747116456 BP Diastolic BP Location Tested BP Systolic [...] Weight in lbs Pre/Post Dialysis Refused Weight 146.033902171333 BP Diastolic BP Location Tested BP Systolic BP Type 92 R arm 147 sitting Fetus Heart Rate Present A 145 Fetus Movement A Yes Comments Flowsheet Date 05/31/2020 Maynard Score Blood Edema Fundus Height Fundus Units Glucose Ketones Leukocytes Nitrite Labor Signs Protein Cervic Dilation Cervic Effacement Cervic Station neg trace trace Type Weight in lbs Pre/Post Dialysis Refused Weight 150.346398677278 BP Diastolic BP Location Tested BP Systolic [...] Present Fetus Movement Comments Flowsheet Date 06/04/2020 Maynrad Score Blood Edema Fundus Height Fundus Units Glucose Ketones Leukocytes Nitrite Labor Signs Protein Cervic Dilation Cervic Effacement Cervic Station trace Type Weight in lbs Pre/Post Dialysis Refused Weight 149.558455470901 BP Diastolic BP Location Tested BP Systolic [...] Weight in lbs Pre/Post Dialysis Refused Weight 128.423034353149 BP Diastolic BP Location Tested BP Systolic [...] At Estimated Date of Delivery false Thalassemia (Anguillan, Somali, Mediterranean, Or Background): MCV < 80 false Neural Tube Defect (Meningom yelocele, Spina Bifida, Or Anencephaly) false Congenital Heart Defect false Down Syndrome false Saeid-Sachs (eg, Mandaen, Cajun, Japanese-[place]aushara) f alse Sanford Disease false Sickle Cell Disease Or Trait () false Hemophilia Or Other Blood Disorders false Muscular Dystrophy false Cystic Fibrosis false Stanton's Chorea false Intellectual Disability/Autism false If Yes, [...] Sterilization Discharge Date Comments 0 34 true [email or web address] GDM , preeclamp usman Discharge Information Feeding Method Contraceptive Method Maternal HG B and HCT Levels Ob Episode Information Episode Created Date Number of Fetuses Patient Bloodtype Patient rh Status Prepregnancy Weight lbs Domestic Partner Domestic Partner Phone Father Name Structural Iron Worker Status 01/10/20 20 1 CLOSED Fetus Data [...] Domestic Partner Domestic Partner Phone Father Name Structural Iron Worker Status 06/15/20 20 1 DELETED Ahsan Calculation [...] Domestic Partner Domestic Partner Phone Father Name Structural Iron Worker Status 11/04/19 22 1 O Positive 112 CLOSED Fetus Data First Name Last Name Admitted to NICU Weight (g) Sex Living Outcome Pediatric Complications Fetus ID Race Codes Race Delivery Type 2721.55 2 M true Prematur e 52464 Vaginal Delivery Problems Problem Notes declines flu and COVID vacci rashard (has not had covid)NL labs, NIPT NL. 06/08/2020 neg CF/SMA Problem Name Start Date End Date Resolution Snomed Code Not e Past history of severe pre-eclampsia 615368823 deli gina at 34w. ASA, baseline labs, testing at 32w Past history of gestational diabetes mellitus 413545729 GCT at 20w, 28 if passes Subchorionic hematoma 09/26/2021 4065593 04 4.3x1.9x3.3cm Marijuana user [id number] +UDS Ahsan Calculation Initial Ahsan Date Initial [...] Date Ultra Sound Latest Days Gestation 0 [email or web address] 11/04/2021 05/23/20 22 0 Pre-solitario Flowsheet Flowsheet Date 11/04/2021 Maynard Score Blood Edema Fundus Height Fundus Units Glucose Ketones Leukocytes Nitrite Labor Signs Protein Cervic Dilation Cervic Effacement Cervic Station Type Weight in lbs Pre/Post Dialysis Refused Weight 114.565385684147 BP Diastolic BP Location Tested BP Systolic [...] Weight in lbs Pre/Post Dialysis Refused Weight 125.818742226874 BP Diastolic BP Location Tested BP Systolic [...] Weight in lbs Pre/Post Dialysis Refused Weight 127.013607550725 BP Diastolic BP Location Tested BP Systolic [...] Weight in lbs Pre/Post Dialysis Refused Weight 131.918222608816 BP Diastolic BP Location Tested BP Systolic [...] Weight in lbs Pre/Post Dialysis Refused Weight 137.343205277097 BP Diastolic BP Location Tested BP Systolic [...] Weight in lbs Pre/Post Dialysis Refused Weight 135.09071716996 BP Diastolic BP Location Tested BP Systolic [...] Weight in lbs Pre/Post Dialysis Refused Weight 135.70098313085 BP Diastolic BP Location Tested BP Systolic [...] Weight in lbs Pre/Post Dialysis Refused Weight 141.741302826916 BP Diastolic BP Location Tested BP Systolic [...] Weight in lbs Pre/Post Dialysis Refused Weight 137.765509882188 BP Diastolic BP Location Tested BP Systolic [...] Weight in lbs Pre/Post Dialysis Refused Weight 126.30536510743 BP Diastolic BP Location Tested BP Systolic [...] Estim ated Date of Delivery false Thalassemia (Anguillan, Somali, Mediterranean, Or Background): MCV < 80 false Neural Tube Defect (Meningomyelocele, Spina Bifi da, Or Anencephaly) false Congenital Heart Defect false Down Syndrome false Saeid-Sachs (eg, Mandaen, Cajun, Japanese-[place]) f alse Sanford Disease false Sickle Cell Disease Or Trait () false Hemophilia Or Other Blood Disorders false Muscular Dystrophy false Cystic Fibrosis false Stanton's Chorea false Intellectual Disability/Autism false If Yes, [...]
--- NOTE | 2024-12-17 20:05 | ED.DENTAL ---
HPI - Dental/Oral General Chief complaint: Dental/Oral Stated complaint: GUM BLEEDING AFTER TOOTH EXTRACTION Time Seen by Provider: 12/17/24 19:37 Source: patient Mode of arrival: ambulatory Limitations: no limitations History of Present Illness HPI Narrative: Patient is a 24-year-old female who presents the ED with report of dental bleeding. Patient reports she had tooth #12 extracted around 12:30 p.m. today. She states since then, she has been having persistent bleeding from the socket. Reports having pain throughout her left upper gumline extending into her left facial cheek, which she reports was present before having the tooth extracted. Denies difficulty swallowing or breathing. Denies nausea, vomiting. Has been taking ibuprofen at home without much improvement. Related Data Allergies Allergy/AdvReac Type Severity Reaction Status Date / Time No Known Allergies Allergy Verified 12/17/24 18:17 Review of Systems Review of Systems: All systems reviewed & are unremarkable except as noted in HPI. All systems reviewed & are unremarkable except as noted in HPI and below PMFSH Past Medical History Medical History No active medical problems Social History Social History Smoking status: Current some day smoker Tobacco type: e-cigarettes/vaping Additional smoking assessment comments: patient reports occasional vaping with inconsistant schedule Substance use: former Gender identity (if verbalized by the patient): Female Spiritual care concerns: No Exam Narrative: GENERAL: Well appearing, thin, non-toxic, in no acute distress. HEAD: Normocephalic, atraumatic. ENT: Dental extraction tooth #12, clot present in socket with minimal oozing. Slight TTP in L maxillary region. MMs moist. No stridor or distress. Tolerating secretions. RESPIRATORY: Airway patent, respirations nonlabored. CARDIOVASCULAR: Regular rate and rhythm MUSCULOSKELETAL: Moves all extremities. No gross deformities. SKIN: Warm, dry, normal color. NEURO: A&O X3. Speech clear. PSYCHIATRIC: Appropriate mood and affect. Normal interaction. Course Vital Signs Vital signs: Vital Signs Temperature 97.1 F L 12/17/24 18:18 Pulse Rate 91 12/17/24 18:18 Respiratory Rate 16 12/17/24 18:18 Blood Pressure 135/75 04/12/25 18:18 Pulse Oximetry 100 12/17/24 18:18 Temperature 97.1 F L 12/17/24 18:18 Pulse Rate 91 12/17/24 18:18 Respiratory Rate 16 12/17/24 18:18 Blood Pressure 135/75 12/17/24 18:18 Pulse Oximetry 100 12/17/24 18:18 MDM - Dental/Oral MDM Narrative Medical decision making narrative: Exam reassuring. Minimal oozing. Do not feel patient requires any further intervention to control bleeding at this time. No signs of airway compromise or distress. Given patient's pain throughout her left maxillary region, which she reports was present before the extraction, will cover for potential infection with Augmentin. Patient given short course of pain medication for home. Advised to continue follow-up with dentist. Given return precautions. Patient discharged in stable condition. Medical Records Attestation: I reviewed the patient's medical records. Discharge Plan Discharge Clinical Impression: Postoperative bleeding from mouth, Pain, dental Patient Disposition: Home Condition: Stable Instructions: Antibiotic Form, Toothache (ED) Additional Instructions: Continue to utilize gauze over wound to help with bleeding. It is normal for it to ooze some after surgery. Follow-up with your dentist for further evaluation. Take antibiotics as prescribed for protection against infection. Continue ibuprofen, Tylenol as needed for pain. Mathews as needed for more severe pain. Return to ED if you experience worsening or severe bleeding, unable to keep down food or drink, difficulty breathing or swallowing, or any other symptoms of concern. Patient Language: Bulgarian Prescriptions: New amoxicillin-pot clavulanate 875-125 mg tablet 1 tablet PO Q12H 7 Days Qty: 14 0RF hydrocodone-acetaminophen 5-325 mg tablet 1 tablet PO Q6H PRN (Reason: pain) Qty: 5 0RF No Action amoxicillin-pot clavulanate 875-125 mg tablet 1 tablet PO Q12H 7 Days Qty: 14 0RF oxycodone 5 mg tablet 5 mg PO Q8H PRN (Reason: pain) Qty: 14 0RF hydrocodone-acetaminophen 5-325 mg tablet 1 tablet PO Q8H PRN (Reason: pain) Qty: 14 0RF amoxicillin-pot clavulanate 875-125 mg tablet 1 tablet PO Q12H 10 Days Qty: 20 0RF penicillin V potassium 500 mg tablet 500 mg PO QID 7 Days Qty: 28 0RF ibuprofen 600 mg tablet 600 mg PO TID PRN (Reason: pain) Qty: 20 0RF oxycodone 5 mg tablet 5 mg PO Q8H PRN (Reason: pain) Qty: 10 0RF Follow-up/Referrals: UNKNOWN,DOCTOR [Primary Care Provider] - Time of Disposition: 20:13
[2024-12-17] MEDS: HYDROcodone/acetaminophen (*CRX) 5-325 MG TABLET 1 TAB PO (20:20)
== END 2024-12-17 20:23 | disposition home or self-care (01) ==
PROVIDERS: Emergency Provider Physician Assistant
DX: K91.840 Postprocedural hemorrhage of a digestive system organ or structure following a digestive system procedure (principal); K08.89 Other specified disorders of teeth and supporting structures; F17.290 Nicotine dependence, other tobacco product, uncomplicated
CPT/HCPCS: 99283; A9270

== ENCOUNTER 2025-05-28 18:01 | Emergency (ER) | payer OTHER, SELFPAY ==
--- NOTE | ~2025-05-28 | CT_ITS ---
EXAMINATION: CT abdomen pelvis wo con DATE: 05/28/2025 20:17 INDICATION: Left flank pain and hematuria TECHNIQUE: Computed tomography (CT) of the abdomen and pelvis was performed with 100 mL Omnipaque-350 intravenous contrast. Automated exposure control and iterative reconstruction technique were employed. The dose-length product was 182.52 mGy-cm. COMPARISON: None FINDINGS: Lung bases are clear. Heart size normal. No pericardial or pleural effusion. Liver, gallbladder, spleen, pancreas and bilateral adrenal glands are normal. Kidneys and ureters are normal with no urolithiasis, hydroureteronephrosis or perinephric/ureteral stranding. And bladder, anteverted uterus and bilateral adnexa are unremarkable. Bowels including the appendix are normal. No free intraperitoneal gas or fluid. No pathologically enlarged abdominal or pelvic lymphadenopathy. Mild thoracolumbar levocurvature. IMPRESSION: 1. No evident urolithiasis or other acute intra-abdominal/pelvic process. Reviewed, dictated and finalized at location A.
[2025-05-28 18:03] VITALS: BP 150/98; PULSE 96; RESP 16; TEMP 37; O2SAT 98
[2025-05-28 19:42] VITALS: BP 148/83; PULSE 99; RESP 17; O2SAT 100
[2025-05-28 19:46] VITALS: BP 148/83; PULSE 97; RESP 17; O2SAT 99
[2025-05-28 20:01] LABS: BEDSIDEPREGUCG Negative (Negative)
[2025-05-28 20:09] LABS: Hematocrit 37.8 % (37.0-47.0); Hemoglobin 12.8 g/dL (12.0-15.0); Immature Granulocyte Percent A 0.5 % (0-0.5); Lymphocytes Absolute Auto 1.71 K/mm3 (0.9-3.2); Mean Corpuscular HGB Conc 33.9 g/dl (32-36); Mean Corpuscular Hemoglobin 29.8 pg (26-34); Mean Corpuscular Volume 87.9 fl (80-100); Nucleated Red Blood Cells Absolute Auto 0.000 K/mm3 (0.0-0.012); Nucleated Red Blood Cells Perc 0.0 % (0.0-0.2); Platelet Count Result 213 k/mm3 (150-375); Red Blood Count 4.30 M/mm3 (4.2-5.4); White Blood Count 17.4 K/mm3 (4.5-10.0)
[2025-05-28 20:20] LABS: Albumin Level 5.0 g/dL (3.5-5.1); Carbon Dioxide 23 mmol/L (22-30); Total Protein 7.9 g/dL (6.3-8.2)
[2025-05-28 20:21] LABS: Alanine Aminotransferase 23 U/L (6-35); Alkaline Phosphatase 62 U/L (38-126); Anion Gap 11 mmol/L (4-12); Aspartate Amino Transferase 41 U/L (14-36); Bilirubin,Total 1.0 mg/dL (0.2-1.3); Blood Urea Nitrogen 17 mg/dL (7-17); Calcium 9.9 mg/dL (8.4-10.2); Chloride 104 mmol/L (98-107); Estimated CRCL calculation 105 ml/min; Estimated Glomerular Filt Rate > 60; Glucose 93 mg/dL (65-110); Lipase 60 U/L (23-300); Potassium 4.1 mmol/L (3.4-5.0); Sodium 138 mmol/L (137-145)
[2025-05-28 20:28] LABS: Appearance Urine Turbid (Clear)
[2025-05-28 20:29] LABS: Specific Grav Ur >= 1.030 (1.001-1.035)
[2025-05-28 20:32] LABS: Add Urine Microscopic? YES
[2025-05-28] MEDS: LACTATED RINGERS 1,000 ML 999 ML IV CONT (20:36)
[2025-05-28 20:38] VITALS: BP 136/88; PULSE 78; RESP 14; O2SAT 99
[2025-05-28] MEDS: cefTRIAXone 1 GM in SODIUM CHLORIDE 0.9% IV 50 ML 100 ML IVPB (21:08)
--- NOTE | 2025-05-28 21:16 | ED.FEMALEGU ---
HPI - Female Genitourinary General Chief complaint: Abdominal Pain Stated complaint: abd pain, hematuria Time Seen by Provider: 05/28/25 19:56 History of Present Illness HPI Narrative: Patient presents here after started having hematuria, started at 2:00 p.m. today, initially was pink-tinged urine then turned into straight blood. She has urinary frequency and urgency. Feels a little like UTI, also has some suprapubic pain and left flank pain. Related Data Allergies Allergy/AdvReac Type Severity Reaction Status Date / Time No Known Allergies Allergy Verified 05/28/25 18:03 Review of Systems Review of Systems: All systems reviewed & are unremarkable except as noted in HPI and below PMFSH Past Medical History Medical History No active medical problems Social History Social History Smoking status: Current some day smoker Tobacco type: e-cigarettes/vaping Additional smoking assessment comments: patient reports occasional vaping with inconsistant schedule Substance use: former Gender identity (if verbalized by the patient): Female Spiritual care concerns: No Exam Narrative: EXAMINATION OF ORGAN SYSTEMS/BODY AREAS: Constitutional: Vital signs per nursing GENERAL:[No acute distress, non-toxic appearing.] HEAD: Normal with no signs of head trauma. EYES: EOMI, conjunctiva normal ENT: Hearing grossly intact LUNGS: Nonlabored breathing. HEART: [Regular rate and rhythm] ABD: [Soft], slightly tender to palpation suprapubic abdomen, left lower back EXT: Normal range of motion SKIN: [No rashes or lesions.] NEURO: [Alert and oriented x 3. No gross focal sensory or strength deficits.] PSYCH: Normal affect Course Vital Signs Vital signs: Vital Signs Temperature 98.6 F 05/28/25 18:03 Pulse Rate 96 05/28/25 18:03 Respiratory Rate 16 05/28/25 18:03 Blood Pressure 150/98 H 05/28/25 18:03 Pulse Oximetry 98 05/28/25 18:03 Oxygen Delivery Room Air 05/28/25 18:03 Temperature 98.6 F 05/28/25 18:03 Pulse Rate 82 05/28/25 21:58 Respiratory Rate 15 05/28/25 21:58 Blood Pressure 131/85 05/28/25 21:58 Pulse Oximetry 97 05/28/25 21:58 Oxygen Delivery Room Air 05/28/25 19:42 MDM - Female Genitourinary MDM Narrative Medical decision making narrative: Patient presents here with blood in her urine, started today, has also been having increased urinary frequency and urgency. She does have an elevated white count here, and her urine shows a large RBCs. CT abdomen/pelvis did not show any obvious stone or abnormality, discussed this case with the urologist, who recommends close follow-up to Urology for likely cystoscopy and urogram and strict return precautions. Antibiotics started. Postvoid residual was about 150. I have discussed everything with the patient, she would far prefer to go home at this time, she expressed understanding and agreement with the plan. Lab Data 05/28/25 20:00 05/28/25 20:00 Labs: Lab Results 05/28/25 05/28/25 Range/Units 19:59 20:00 WBC 17.4 H (4.5-10.0) K/mm3 RBC 4.30 (4.2-5.4) M/mm3 Hgb 12.8 (12.0-15.0) g/dL Hct 37.8 (37.0-47.0) % MCV 87.9 (80-100) fl MCH 29.8 (26-34) pg MCHC 33.9 (32-36) g/dl RDW 13.2 (11.5-14.5) % Plt Count 213 (150-375) k/mm3 MPV 9.6 (7.4-10.4) fl Immature Gran % (Auto) 0.5 (0-0.5) % Neut % (Auto) 80.7 H (45.5-73.1) % Lymph % (Auto) 9.8 L (18.3-44.2) % [place] % (Auto) 6.6 (2.6-8.5) % Eos % (Auto) 2.1 (0-4.4) % Baso % (Auto) 0.3 (0.2-1.2) % Lymph # (Auto) 1.71 (0.9-3.2) K/mm3 [place] # (Auto) 1.2 H (0.1-0.6) K/mm3 Eos # (Auto) 0.4 H (0-0.3) K/mm3 Baso # (Auto) 0.1 (0.0-0.1) K/mm3 Abs Immat Gran (auto) 0.08 H (0.00-0.031) K/mm3 Absolute Neuts (auto) 14.0 H (1.3-6.7) K/mm3 Absolute Nucleated RBC 0.000 (0.0-0.012) K/mm3 Nucleated RBC % 0.0 (0.0-0.2) % Sodium 138 (137-145) mmol/L Potassium 4.1 (3.4-5.0) mmol/L Chloride 104 (98-107) mmol/L Carbon Dioxide 23 (22-30) mmol/L Anion Gap 11 (4-12) mmol/L BUN 17 D (7-17) mg/dL Creatinine 0.64 L (0.7-1.0) mg/dL Estim Creat Clear Calc 105 ml/min Estimated GFR > 60 (59 - ) Glucose 93 (65-110) mg/dL Calcium 9.9 (8.4-10.2) mg/dL Total Bilirubin 1.0 (0.2-1.3) mg/dL AST 41 H (14-36) U/L ALT 23 (6-35) U/L Alkaline Phosphatase 62 (38-126) U/L Total Protein 7.9 (6.3-8.2) g/dL Albumin 5.0 (3.5-5.1) g/dL Lipase 60 (23-300) U/L Urine Color Red H (Yellow) Urine Appearance Turbid H (Clear) Urine pH 6.0 (5.0-9.0) Ur Specific [place] >= 1.030 (1.001-1.035) Urine Protein 3+ H (Negative) mg/dL Urine Glucose (UA) TNP Urine Ketones TNP Ur Blood (Man) 2+ H (Negative) Urine Nitrate TNP Urine Bilirubin TNP Urine Urobilinogen TNP Leukocyte Esterase Rfl TNP Urine RBC >100 H (0-2) /hpf Urine WBC 0-5 (0-3) /hpf Ur Squamous Epith Cells None seen (Few) /hpf Urine Bacteria Trace (None) /hpf POC Urine HCG, Qual Negative (Negative) Discharge Plan Discharge Clinical Impression: Gross hematuria Patient Disposition: Home Condition: Stable Instructions: Antibiotic Form, Hematuria (ED) Additional Instructions: Please take the antibiotics as prescribed, and follow up with the urologist tomorrow morning. If you persist in having heavy bleeding, or if you start having significant pain, fevers or chills, nausea vomiting, or if you get lightheaded or dizzy or have chest pain or shortness of breath, please return to the ER immediately. Patient Language: Stateless Prescriptions: New sulfamethoxazole-trimethoprim [Bactrim DS] 800-160 mg tablet 1 tablet PO Q12H Qty: 14 0RF acetaminophen [Tylenol Extra Strength] 500 mg tablet 1,000 mg PO Q6H PRN (Reason: pain) Qty: 50 0RF No Action amoxicillin-pot clavulanate 875-125 mg tablet 1 tablet PO Q12H 7 Days Qty: 14 0RF oxycodone 5 mg tablet 5 mg PO Q8H PRN (Reason: pain) Qty: 14 0RF hydrocodone-acetaminophen 5-325 mg tablet 1 tablet PO Q8H PRN (Reason: pain) Qty: 14 0RF amoxicillin-pot clavulanate 875-125 mg tablet 1 tablet PO Q12H 10 Days Qty: 20 0RF amoxicillin-pot clavulanate 875-125 mg tablet 1 tablet PO Q12H 7 Days Qty: 14 0RF hydrocodone-acetaminophen 5-325 mg tablet 1 tablet PO Q6H PRN (Reason: pain) Qty: 5 0RF penicillin V potassium 500 mg tablet 500 mg PO QID 7 Days Qty: 28 0RF ibuprofen 600 mg tablet 600 mg PO TID PRN (Reason: pain) Qty: 20 0RF oxycodone 5 mg tablet 5 mg PO Q8H PRN (Reason: pain) Qty: 10 0RF Follow-up/Referrals: UNKNOWN,DOCTOR [Primary Care Provider] Destin Darby MD [Physician, Urology] - 1 Day Stand Alone Forms: Work/School Release IP
[2025-05-28 21:58] VITALS: BP 131/85; PULSE 82; RESP 15; O2SAT 97
== END 2025-05-28 21:59 | disposition home or self-care (01) ==
PROVIDERS: Emergency Provider Emergency Medicine
DX: R31.0 Gross hematuria (principal); F17.210 Nicotine dependence, cigarettes, uncomplicated
CPT/HCPCS: 36415; 74176; 80053; 81001; 81025; 83690; 85025; 87086; 96361; 96365; 99284; J0696; J7120